=== PATIENT | male | born 1945 | race Caucasian/White ===

== ENCOUNTER 2016-09-20 08:13 | Outpatient (CLI) | payer MEDICARE, OTHER ==
[~2016-09-20] VITALS: Ht 188 cm; Wt 97.7 kg
--- NOTE | ~2016-09-20 | HEMODYNAMI ---
PATIENT:ROD YEBOAH MEDICAL RECORD: [id number] : 43 LOCATION:[facility] ADMISSION DATE: 09/20/16 Generatedon:09/20/201613:58 Patient name: ROD YEBOAH Patient #: [id number] SSN: : 1945 Date of study: 09/20/2016 Page: Of Hemodynamic Procedure Report Patient Data Patient Demographics Procedure consent was obtained First Name: ROD Gender: Male Last Name: EDILIA : 1945 Patient #: [id number] Age: 71 year(s) Race: Unknown Additional ID: [id number] Contact details Address: [address] [place] [address] State: [place] City: [place] Zip code: [address] Past Medical History Allergies: No known allergies Admission Admission Data Admission Date: 09/20/2016 Admission Time: 8:13 Lab Results Lab Result Date: 09/17/2016 Lab Result Time: 0:00 Biochemistry Name Units Result Min Max Creatinine mg/dl 1.1 --(--*-)-- 0.6 1.3 Creatinine l 28 --(*---)-- 21 215 Kinase CBC Name Units Result Min Max Hemoglobin g/dl 14.4 --(*---)-- 13.5 17.5 Procedure Procedure Types Cath Procedure PCI Procedure Coronary Stent Initial Miscellaneous Procedures Moderate Sedation up to 15 minutes Procedure Description Procedure Date Procedure Date: 09/20/2016 Procedure Start Time: 13:47 Procedure End Time: 13:58 Procedure Staff Name Function Ephraim Hill MD Performing Physician Hussain Castellano RT Scrub Lesly Aguilar RN Nurse Gaurang Esposito RT Monitor Procedure Data Cath Procedure Fluoroscopy Diagnostic fluoroscopy Total fluoroscopy Time: 1.6 time: 1.6 min min Diagnostic fluoroscopy Total fluoroscopy dose: dose: 131.06 mGy 131.06 mGy Contrast Material Contrast Material Type Amount (ml) Isovue 300 60 Entry Location Entry Primary Successful Side Size Upsize Upsize Entry Closure Succes sful Closure Location (Fr) 1 (Fr) 2 (Fr) Remarks Device Remarks Femoral Right 7 Fr Exoseal artery Short Estimated blood loss: 10 ml Procedure Complications No complications Procedure Medications Medication Administration Route Dosage Oxygen NC 2 l/min Heparin Flush Bag added to field 2 bags (1000units/500ml NS) Lidocaine 2% added to field 20 Versed I.V. 1 mg Fentanyl I.V. 50 mcg Versed I.V. 1 mg Fentanyl I.V. 50 mcg Versed I.V. 1 mg Fentanyl I.V. 50 mcg Heparin Bolus I.V. 4000 units Hemodynamics Rest HGB: 14.4 (g/dl) Heart Rate: 79 (bpm) Snapshots Pre Cath Intra NCS Post Cath Vital Signs Time Heart Resp SPO2 NIBP (mmHg) Rhythm Pain Sedation Rate (ipm) (%) Status Level (bpm) 13:13:26 78 15 96 115/73(95) NSR 0 (11) 10(A) , No pain 13:17:36 78 23 98 114/77(87) NSR 0 (11) 10(A) , No pain 13:21:50 67 19 99 104/66(84) NSR 0 (11) 10(A) , No pain 13:25:58 73 19 95 104/72(83) NSR 0 (11) 10(A) , No pain 13:30:06 68 17 98 98/64(82) NSR 0 (11) 10(A) , No pain 13:34:16 69 16 98 97/61(79) NSR 0 (11) 10(A) , No pain 13:38:24 76 14 97 104/66(98) NSR 0 (11) 10(A) , No pain 13:42:29 86 17 98 114/77(107) NSR 0 (11) 10(A) , No pain 13:46:39 81 16 98 108/76(103) NSR 0 (11) 9(A) , No pain 13:50:49 84 16 97 120/75(101) NSR 0 (11) 9(A) , No pain 13:55:01 85 13 97 104/64(84) NSR 0 (11) 9(A) , No pain Medications Time Medication Route Dose Verified Delivered Reason Notes Effectiveness by by 13:17:57 Oxygen NC 2 Ephraim Grace Per physician l/min Liz Aguilar RN 13:18:05 Heparin Flush added 2 Ephraim Ye used for Bag to bags Liz Hill MD procedure (1000units/500ml field NS) 13:18:15 Lidocaine 2% added 20ml Ephraim Ye used for to vial Liz Hill MD procedure field 13:38:16 Versed I.V. 1 mg Ephraim Lesly for sedation Liz Aguilar RN 13:38:25 Fentanyl I.V. 50 Ephraim Lesly for sedation mcg Liz Aguilar RN 13:40:13 Versed I.V. 1 mg Ephraim Lesly for sedation Liz Aguilar RN 13:40:16 Fentanyl I.V. 50 Ephraim Lesly for sedation mcg Liz Aguilar RN 13:43:44 Versed I.V. 1 mg Ephraim Lesly for sedation Liz Aguilar RN 13:43:47 Fentanyl I.V. 50 Ephraim Lesly for sedation mcg Liz Aguilar RN 13:48:17 Heparin Bolus I.V. 4000 Ephraim Lesly for dose units Liz Aguilar RN anticoagulation verified with dr hill Procedure Log Time Note 12:45:08 Hussain Nona RT(R) sent for patient. Start room use. 12:48:16 ACC Patient presents with Stable Angina CCS Anginal Class 2--Slight limitation of ordinary activity. 12:48:18 Diagnostic Cath status Elective 12:51:14 Time tracking: Regular hours 12:51:18 Plan of Care:Hemodynamics will remain stable., Cardiac rhythm will remain stable., Comfort level will be maintained., Respiratory function will remain adequate., Patient/ family verbilizes understanding of procedure., Procedure tolerated without complication., Recovers from procedure without complications.. 13:07:52 Patient received from Pre/Post Procedure Room to CCL 3 Alert and oriented. Tansferred to table in Supine position. 13:07:53 Warm blankets applied, and jose hugger turned on for patient comfort. 13:07:54 Correct patient and procedure confirmed by team. 13:07:55 Signed procedure consent form obtained from patient. 13:07:55 ECG and BP/O2 sat monitors applied to patient. 13:12:22 Vital chart was started 13:17:52 Baseline sample Acquired. 13:17:57 Oxygen 2 l/min NC was administered by Lesly Aguilar RN; Per physician; 13:17:57 Rhythm: sinus rhythm 13:17:58 Full Disclosure recording started 13:18:05 Heparin Flush Bag (1000units/500ml NS) 2 bags added to field was administered by Ephraim Hill MD; used for procedure; 13:18:15 Lidocaine 2% 20ml vial added to field was administered by Ephraim Hill MD; used for procedure; 13:20:02 Is patient on blood thinner?Yes 13:20:04 ACC The patient was administered the following blood thiners within the last 24 hours: ACCPlavix 13:20:05 Patient diabetic? No. 13:20:07 Previous problem with sedation/anesthesia? No ? 13:20:08 Snore? Yes 13:20:09 Sleep apnea? No 13:20:10 Deviated septum? No 13:20:11 Opens mouth fully? Yes 13:20:12 Sticks out tongue? Yes 13:20:13 Airway obstruction? No ? 13:20:17 Dentures? Yes IN 13:23:04 H&P Date Dictated: 09/20/2016 New H&P dictated by physician.. 13:23:05 Pre-procedure instructions explained to patient. 13:23:06 Pre-op teaching completed and patient verbalized understanding. 13:23:08 Family in waiting room. 13:23:10 Patient NPO since Midnight. 13:23:16 Pre procedure: right dorsailis pedis pulse 1+ Palpable, but thready & weak; easily obliterated 13:23:19 Patient pain scale 0/10 ?. 13:23:26 IV patent on arrival in left forearm with 0.9% NaCl at [facility]. 13:23:28 Lab results completed and on chart. 13:23:32 Right groin area was prepped with chlora-prep and draped in sterile fashion 13:23:33 Alarms reviewed by R. N. 13:23:33 Sharps counted by scrub and verified by R.N. 13:23:39 Use device set Femoral PCI 13:23:40 Tegaderm 4 x 4 opened to sterile field. 13:23:43 Acist Manifold opened to sterile field. 13:23:44 Acist Syringe opened to sterile field. 13:23:44 Acist Hand Control opened to sterile field. 13:23:45 Bag Decanter opened to sterile field. 13:23:45 Medline Cath Pack opened to sterile field. 13:23:46 St Sean 260cm J .035 wire opened to sterile field. 13:23:47 Merit BasixCompak Inflation Kit opened to sterile field. 13:24:04 Terumo 7Fr [place] Sheath opened to sterile field. 13:24:04 [place] Sci Choice PT Extra Support J 300cm .014 gu opened to sterile field. 13:24:05 Medtronic Launcher 7Fr AR 2.0 guide catheter opened to sterile field. 13:33:29 Zero performed for pressure channel P1 13:33:31 Zero performed for pressure channel P1 13:33:34 Zero performed for pressure channel P1 13:33:36 Zero performed for pressure channel P1 13:34:36 Zero performed for pressure channel P1 13:34:38 Zero performed for pressure channel P1 13:35:56 Zero performed for pressure channel P1 13:37:44 --------ALL STOP TIME OUT------ 13:37:45 Final Timeout: patient, procedure, and site verified with staff and physician. All members of the team are in agreement. 13:37:47 Right groin site verified by team. 13:37:49 Physical assessment completed. ASA score P 2 - A patient with mild systemic disease as per Ephraim Hill MD. 13:37:52 Sedation plan: IV Moderate Sedation Versed, Fentanyl 13:38:16 Versed 1 mg I.V. was administered by Lesly Aguilar RN; for sedation; 13:38:25 Fentanyl 50 mcg I.V. was administered by Lesly Aguilar RN; for sedation; 13:40:13 Versed 1 mg I.V. was administered by Lesly Aguilar RN; for sedation; 13:40:16 Fentanyl 50 mcg I.V. was administered by Lesly Aguilar RN; for sedation; 13:43:44 Versed 1 mg I.V. was administered by Lesly Aguilar RN; for sedation; 13:43:47 Fentanyl 50 mcg I.V. was administered by Lesly Aguilar RN; for sedation; 13:47:21 Procedure started. 13:47:25 Local anesthetic to right femoral artery with Lidocaine 2% by Ephraim Hill MD.INITIAL ACCESS ONLY 13:48:02 A 7 Fr Short sheath was inserted into the Right Femoral artery 13:48:17 Heparin Bolus 4000 units I.V. was administered by Lesly Aguilar RN; for anticoagulation; dose verified with dr hill 13:48:47 6 Fr AR 2 guide catheter was inserted over the wire 13:49:10 Whisper wire advanced. 13:51:02 Wire advanced across lesion. 13:51:39 Inflation Number: 1 A Medtronic Resolute 3.5 X 12 stent was prepped and advanced across the Mid RCA. The stent was deployed at 11 MANOLO for 0:10 (min:sec). 13:51:49 Stent catheter was removed intact over wire. 13:51:49 Wire removed. 13:51:50 Guide catheter removed. 13:52:00 Sheath removed intact; hemostasis achieved with Exoseal to the Right Femoral artery. 13:52:06 Procedure ended.(Physican Out) 13:52:19 Cordis 7Fr Exoseal opened to sterile field. 13:52:26 Fluoroscopy time 01.60 minutes. 13:52:30 Fluoroscopy dose: 131.06 mGy 13:52:30 Flurop Dose total: 131.06 13:52:33 Contrast amount:Isovue 300 60ml. 13:52:34 Sharps counted by scrub and verified by R.N. 13:54:13 Insertion/operative site no bleeding no hematoma. 13:54:16 Post-op/insertion site Right Femoral artery dressed using a 4 x 4 and Tegaderm. 13:54:17 Post Procedure Pulses reassessed and unchanged 13:54:19 Post-procedure physical assessment completed. ASA score P 2 - A patient with mild systemic disease as per Ephraim Hill MD. 13:54:22 Post procedure rhythm: unchanged. 13:54:24 Estimated blood loss: 10 ml 13:54:26 Post procedure instruction explained to patient.Patient verbalizes understanding. 13:54:26 Patient needs reinforcement of post procedure teaching. 13:54:37 Procedure Complication : No complications 13:54:55 Procedure and supply charges have been captured, reviewed, submitted and are correct. 13:58:15 Vital chart was stopped 13:58:15 See physician's report for complete and final results. 13:58:17 Report given to Pre/Post Procedure Room. 13:58:20 Patient transfered to Pre/Post Procedure Room with Bed. 13:58:22 Procedure ended. 13:58:22 Full Disclosure recording stopped 13:58:25 End room use (Document Last) Intervention Summary Intervention Notes Time ActionType Lesion and Equipment Action# Pressure Duration Attributes Used 13:51:39 Place stent Mid RCA Medtronic 1 11 00:10 Resolute 3.5 X 12 stent Device Usage Item Name Manufacture Quantity Catalog Number Hospital Part Current [facility] al Lot# / Charge Number Stock Stock Serial# Code Tegaderm 4 3M 1 [id number] 513462 212715 802594 5 x 4 Acist Acist 1 44230 532976 028140 157539 5 Manifold Medical Systems Inc Acist Acist 1 06439 779540 673994 589531 20 Syringe Medical Systems Inc Acist Hand Acist 1 41844 608738 621153 573665 5 Control Medical Systems Inc Bag Microtek 1 2002S 794347 89929 891803 5 SIMI Inc. Medline Cardinal 1 [id number] 471928 41772 197409 [address] [facility] [address] [facility] St Sean 1 687906 358568 463172 581743 30 260cm J .035 wire Merit Merit 1 [id number] 692463 569930 474111 15 BasixCompak Medical Inflation Kit Terumo 7Fr Terumo 1 [id number] 881064 907116 792984 5 [place] Sheath [place] Sci [place] 1 [id number] 291435 250312 991650 5 Choice PT Scientific Extra Support J 300cm .014 gu Medtronic Medtronic 1 [id number] 568013 152024 529169 0 Launcher 7Fr AR 2.0 guide catheter Medtronic Medtronic 1 [id number] 091415 380608 8 [id number] Resolute 3.5 X 12 stent Cordis 7Fr Cardinal 1 EX700 063197 035742 842297 5 Exoseal [facility] Signature Audit [place] Stage Time Signature Unsigned Intra-Procedure 09/20/2016 Gaurang Esposito 1:58:49 PM RT(R) Signatures Monitor : Gaurang Esposito RT Signature : Date : Time : [address] [address] [place] [address]
[~2016-09-20 08:13] MED LIST: LIPITOR10 MG PO; LOTREL 5/10 MG1 CAP PO; OMEPRAZOLE20 M1 PO; PLAVIX75 MG PO; TESSALON PERLE100 MG PO; ZITHROMAX250 MG PO
[2016-09-20 08:42] VITALS: BP 112/68; Ht 188 cm; Wt 97.7 kg
[2016-09-20 08:52] LABS: BASOPHILS 0.2 % (0-2); EOSINOPHILS 2.6 % (0-7); HEMATOCRIT 41.9 % (42.0-54.0); HEMOGLOBIN 14.4 g/dL (13.5-17.5); IMMATURE GRANULOCYTES 0.4 % (0-5); LYMPHOCYTES 22.9 % (15-50); MCH 30.3 pg (26.0-34.0); MCHC 34.4 g/dL (31.0-37.0); MCV 88.2 fL (80.0-100.0); MEAN PLATELET VOLUME 10.6 fL (7.4-10.4); MONOCYTES 6.9 % (2-11); PLATELET COUNT 230 10x3/uL (130-400); RBC 4.75 10x6/uL (4.20-6.10); RDW 13.7 % (11.5-14.5); WBC 9.1 10x3/uL (4.8-10.8)
[2016-09-20 09:06] LABS: CALC OSMOLALITY 278 mosm/kg (275-300); CALCIUM 8.7 mg/dL (8.5-10.1); CARBON DIOXIDE 26.4 mmol/L (21.0-32.0); CHLORIDE - SERUM 104 mmol/L (98-107); GLUCOSE 161 mg/dL (74-106); POTASSIUM - SERUM 4.3 mmol/L (3.5-5.1); SODIUM 139 mmol/L (136-145); UREA NITROGEN 8 mg/dL (7-18); eGFR NON AFRICAN AMERICAN 78 mL/min (90-120)
--- NOTE | 2016-09-20 14:57 | NUR ---
1430-RIGHT GROIN CDI, NO BLEEDING OR HEMATOMA NOTED, SOFT TO TOUCH, RESTING
--- NOTE | 2016-09-20 15:01 | NUR ---
1500-NO CHANGES NOTED, RESTING, GROIN CDI
--- NOTE | 2016-09-22 08:58 | HP ---
PATIENT: ROD RAINES MEDICAL RECORD: [id number] ACCOUNT: [id number] LOCATION:[facility] : 43 ADMISSION DATE: 09/20/16 HISTORY AND PHYSICAL EXAMINATION DIAGNOSES: 1. Angina. 2. Coronary artery disease. 3. Recent percutaneous transluminal coronary angioplasty stent of left anterior descending with significant disease of right coronary artery. 4. Hypertension. HISTORY OF PRESENT ILLNESS: Mr. Raines presents with anginal symptomatology, found to have 2-vessel disease of the LAD and RCA, underwent successful PTCA stent of the LAD. He is now brought back for PTCA stent of the RCA. PHYSICAL EXAMINATION: GENERAL APPEARANCE: Well-nourished, well-developed, appears stated age. Level of distress, comfortable. PSYCHIATRIC: Mental status, alert, normal affect. Orientation, oriented to time, place and person. EYES: Lids and conjunctiva, noninjected. No discharge, no pallor. ENT: Lips, teeth, gums, normal dentition. Oropharynx, no cyanosis, no pallor. NECK: Carotid arteries, bilateral normal upstroke, no bruits, no thrills. JUGULAR VEINS: No jugular venous pressure or distention. CERVICAL LYMPH NODES: Nontender, nonenlarged. THYROID: Not enlarged. Nontender. No nodules. LUNGS: Respiratory effort, unlabored. CHEST: Normal curvature. No thoracic deformity. No chest wall tenderness. Percussion, resonant. Auscultation, clear. No wheezes, no rales, no rhonchi. CARDIOVASCULAR: Precordial exam, nondisplaced. No heaves or pericardial thrills. Rate and rhythm, regular. Heart sounds, normal S1, normal S2. No S3, no gallop, no rub. Systolic murmur, not heard. Diastolic murmur, not heard. EXTREMITIES: No cyanosis, no edema. Peripheral pulses, full and equal in all extremities, except as noted. No bruits appreciated. ABDOMEN: Soft, nondistended. Normal aorta. No bruit. Nontender. No masses. Liver, nontender, no hepatomegaly. Spleen, nontender, no splenomegaly. MUSCULOSKELETAL: No joint tenderness. No joint swelling. No erythema. NEUROLOGICAL: Normal gait, normal strength, normal tone. SKIN: Warm and dry. REVIEW OF SYSTEMS: The patient reports easy bruising but reports no swollen glands. The patient reports no fever, no night sweats, no significant weight gain, no significant weight loss. No significant exercise tolerance. The patient reports no dry eyes, no irritation, no vision change. Patient reports no difficulty hearing and no ear pain. Patient reports no frequent nose bleeds or nose and sinus problems. Patient reports on arm pain on exertion. No shortness of breath while lying down. No history of heart murmur. Patient reports no cough, no wheezing or coughing up blood. Patient reports no abdominal pain, no vomiting. Normal appetite. No diarrhea and not vomiting blood. No nausea and no constipation. Patient reports no incontinence. No difficulty urinating. No hematuria. No increased frequency. Patient reports no muscle aches. No weakness, no arthralgias, no back pain. No swelling of the extremities. Patient reports no abnormal mole, no jaundice, no rashes. Reports HISTORY AND PHYSICAL [id number] RAINES,CALVIN no loss of consciousness. No weakness and no numbness. No seizures, dizziness, or headaches. The patient reports no depression, no sleep disturbance, feeling safe in a relationship and no alcohol abuse. Patient reports on fatigue. Reports no runny nose or sinus pressure. No itching, no hives, and no frequent sneezing. OVERALL IMPRESSION: Anginal symptomatology with significant disease of the right coronary artery. We will proceed with percutaneous transluminal coronary angioplasty stent of the right coronary artery. TRANSINT:[id number] Voice Confirmation ID: [id number] DOCUMENT ID: [id number] NU ARRIAZA MD at 0858 CC: [id number] DICTATION DATE: 09/20/16939 SENIOR BIOSTATISTICIAN: 09/20/16 1145 DEP CLI 09/20/16 [facility] [address] [id number]
--- NOTE | 2016-09-22 08:58 | HP ---
PATIENT: ROD RAINES MEDICAL RECORD: [id number] ACCOUNT: [id number] LOCATION:[facility] : 43 ADMISSION DATE: 09/20/16 HISTORY AND PHYSICAL EXAMINATION DATE OF SERVICE: 09/20/2016 DIAGNOSES: 1. Angina. 2. Coronary artery disease. 3. Recent percutaneous transluminal coronary angioplasty stent of the left anterior descending with concomitant disease of the right coronary artery. HISTORY OF PRESENT ILLNESS: Mr. Raines presented last week with unstable angina, found to have significant disease of the LAD and RCA, underwent successful PTCA stent of the LAD, now brought back for PTCA stent of the RCA. PHYSICAL EXAMINATION: GENERAL APPEARANCE: Well-nourished, well-developed, appears stated age. Level of distress, comfortable. PSYCHIATRIC: Mental status, alert, normal affect. Orientation, oriented to time, place and person. EYES: Lids and conjunctiva, noninjected. No discharge, no pallor. ENT: Lips, teeth, gums, normal dentition. Oropharynx, no cyanosis, no pallor. NECK: Carotid arteries, bilateral normal upstroke, no bruits, no thrills. JUGULAR VEINS: No jugular venous pressure or distention. CERVICAL LYMPH NODES: Nontender, nonenlarged. THYROID: Not enlarged. Nontender. No nodules. LUNGS: Respiratory effort, unlabored. CHEST: Normal curvature. No thoracic deformity. No chest wall tenderness. Percussion, resonant. Auscultation, clear. No wheezes, no rales, no rhonchi. CARDIOVASCULAR: Precordial exam, nondisplaced. No heaves or pericardial thrills. Rate and rhythm, regular. Heart sounds, normal S1, normal S2. No S3, no gallop, no rub. Systolic murmur, not heard. Diastolic murmur, not heard. EXTREMITIES: No cyanosis, no edema. Peripheral pulses, full and equal in all extremities, except as noted. No bruits appreciated. ABDOMEN: Soft, nondistended. Normal aorta. No bruit. Nontender. No masses. Liver, nontender, no hepatomegaly. Spleen, nontender, no splenomegaly. MUSCULOSKELETAL: No joint tenderness. No joint swelling. No erythema. NEUROLOGICAL: Normal gait, normal strength, normal tone. SKIN: Warm and dry. REVIEW OF SYSTEMS: The patient reports easy bruising but reports no swollen glands. The patient reports no fever, no night sweats, no significant weight gain, no significant weight loss. No significant exercise tolerance. The patient reports no dry eyes, no irritation, no vision change. Patient reports no difficulty hearing and no ear pain. Patient reports no frequent nose bleeds or nose and sinus problems. Patient reports on arm pain on exertion. No shortness of breath while lying down. No history of heart murmur. Patient reports no cough, no wheezing or coughing up blood. Patient reports no abdominal pain, no vomiting. Normal appetite. No diarrhea and not vomiting blood. No nausea and no constipation. Patient reports no incontinence. No difficulty urinating. No hematuria. No increased frequency. Patient reports no muscle aches. No weakness, no arthralgias, no back pain. No swelling of the extremities. Patient reports no abnormal mole, no jaundice, no rashes. Reports HISTORY AND PHYSICAL [id number] EDILIAROD no loss of consciousness. No weakness and no numbness. No seizures, dizziness, or headaches. The patient reports no depression, no sleep disturbance, feeling safe in a relationship and no alcohol abuse. Patient reports on fatigue. Reports no runny nose or sinus pressure. No itching, no hives, and no frequent sneezing. OVERALL IMPRESSION: Anginal symptomatology with significant disease of the right coronary artery. We will proceed with transcatheter revascularization of the right coronary artery. TRANSINT:[id number] Voice Confirmation ID: [id number] DOCUMENT ID: [id number] NU ARRIAZA MD at 0858 CC: [id number] DICTATION DATE: 09/21/16 0851 MANAGER RADIATION: 09/21/16 0948 DEP CLI 09/20/16 [facility] [address] [id number]
--- NOTE | 2016-09-22 08:58 | OP ---
PATIENT NAME: ROD YEBOAH MEDICAL RECORD: [id number] :43 LOCATION:[facility] ADMISSION DATE: SURGEON: NU ARRIAZA MD DATE OF OPERATION: 09/20/2016 PROCEDURES: 1. PTCA stent, RCA. 2. Selective coronary angiography. INDICATIONS: Angina and coronary artery disease. PROCEDURE IN DETAIL: After informed consent was obtained and after detailed explanation of risks, benefits as well as alternative therapies, the patient elected to proceed with angiogram and angioplasty. The right femoral area was prepped and draped in normal sterile fashion. The right femoral artery was cannulated via modified Seldinger technique with placement of 7-Hebrew sheath. All catheters exchanged through this sheath. FINDINGS: The right coronary is very angulated and has a 70%-80% stenosis in the mid vessel. This was addressed with a 3.5 x 12 mm Resolute stent. Result was 0% residual stenosis. OVERALL IMPRESSION: Successful percutaneous transluminal coronary angioplasty stent of the right coronary artery going from 70%-80% initial stenosis to 0% residual. TRANSINT:[id number] Voice Confirmation ID: [id number] DOCUMENT ID: [id number] NU ARRIAZA MD at 0858 CC: [id number] DICTATION DATE: 09/20/16 1358 EXPRESSIVE THERAPIST: 09/20/164 DEP CLI 09/20/16 [id number] [place] [address]
== END 2016-09-20 18:00 | disposition home or self-care (01) ==
LOC: D.CATH 08:13
PROVIDERS: Internal Medicine Interventional Cardiology
DX: I25.119 Atherosclerotic heart disease of native coronary artery with unspecified angina pectoris (principal); Z95.5 Presence of coronary angioplasty implant and graft; I10 Essential (primary) hypertension; Z01.812 Encounter for preprocedural laboratory examination

== ENCOUNTER 2016-09-30 14:47 | Inpatient (IN) | payer MEDICARE, OTHER ==
[~2016-09-30] VITALS: Ht 188 cm; Wt 98.5 kg
--- NOTE | ~2016-09-30 | CN ---
PATIENT NAME:ROD RAINES MEDICAL RECORD: [id number] : 43 LOCATION:D. D.2139 ADMIT DATE: 09/30/16 ACCOUNT: [id number] CONSULTING PHYSICIAN: SILVIA BRITO MD REFERRING PHYSICIAN: JACEK HERNANDEZ MD DATE OF CONSULTATION: 10/01/2016 CONSULT REQUESTING PHYSICIAN: Jacek Hernandez MD. REASON FOR CONSULTATION: Pneumonia, left lower lobe; COPD exacerbation. HISTORY OF PRESENT ILLNESS: Mr. Raines is a 71-year-old gentleman who has remote history of smoking. According to the patient, he is sick for the last few weeks. He was coughing and wheezing. He was tested positive for the whooping cough. He was treated with Zithromax. Then, for shortness of breath, he saw Dr. Hill and he did a cardiac catheterization and 2-vessel was stented. For the last 2 days, the patient had worsening shortness of breath with mild exertion. When he coughs, he hears himself wheezing. He even has shortness of breath with normal conversation. REVIEW OF SYSTEMS: Mainly in the history of present illness. PAST MEDICAL HISTORY: 1. Coronary artery disease. 2. Hypertension. 3. History of pneumonia in the past. 4. Vertigo. PAST SURGICAL HISTORY: 1. He has left knee replacement. 2. He has cardiac catheterization and stent placement times [address] Hill. ALLERGIES: No known drug allergies. PRESENT MEDICATIONS: [facility]. He is not on any inhaled medication, but he got a few courses of antibiotics when he was sick for the last 2-3 weeks. PERSONAL AND SOCIAL HISTORY: The patient is . He is an ex-smoker, he quit years ago. He is a nondrinker. FAMILY HISTORY: Significant for cardiovascular disease. PHYSICAL EXAMINATION: GENERAL: Now, the patient is lying comfortably. He is not in acute distress. VITAL SIGNS: The blood pressure is 132/89, pulse is 83, respiration is 16, temperature 97.9, SpO2 is 97% on 2 L nasal cannula. HEENT: Conjunctivae are pink, sclerae nonicteric. NECK: Supple. No JVD. CHEST: The chest excursion is minimal on both sides. There is a crackle on the left side. No wheezing. HEART: Rhythm regular, normal sound, no murmur. ABDOMEN: Soft, bowel sounds present. No hepatosplenomegaly. RECTAL: Deferred. CENTRAL NERVOUS SYSTEM: The patient is awake and alert. There is no obvious CONSULT REPORT [id number] ROD RAINES cranial nerve abnormality. The gait was not tested. CHEST RADIOGRAPH: There is a left lower lobe infiltrate. There is a small left-sided pleural effusion. LABORATORY DATA: CBC: The WBC is 4.9, hemoglobin 13.2, hematocrit 38.6. The platelet count is 203. Chemistry: Sodium 138, potassium 3.9, BUN is 10, creatinine is 1. ProBNP 173. Albumin is 3.1. IMPRESSION: 1. Acute hypoxic respiratory failure secondary to pneumonia, left lower lobe. 2. Left parapneumonic pleural effusion. 3. Acute exacerbation of chronic obstructive pulmonary disease. 4. Dyspnea. 5. Whooping cough. 6. Coronary artery disease. 7. Gastroesophageal reflux disease. RECOMMENDATION: 1. Continue Rocephin. Discontinue Zithromax. Start him on Levaquin. 2. Start on methylprednisolone IV. Start on albuterol/ipratropium nebulizer. Start Brovana and budesonide nebulizer. 3. Mucinex DM 2 tablets b.i.d. 4. GERD precaution. Continue omeprazole. Check alpha-1 level. Follow up labs and chest radiograph in the morning. Dr. Hernandez, once again, thank you for involving me in the care of Mr. Raines. TRANSINT:[id number] Voice Confirmation ID: [id number] DOCUMENT ID: [id number] SILVIA BRITO MD CC: JACEK HERNANDEZ MD [id number] DICTATION DATE: 10/01/16 1432 CORONER FORENSIC TECHNICIAN: 10/01/[id number] ADM IN [facility] [address] [id number]
--- NOTE | ~2016-09-30 | DS ---
PATIENT:ROD YEBOAH :43 MEDICAL RECORD: [id number] DISCHARGE SUMMARY ADMISSION DATE: 09/30/16 DISCHARGE DATE: 10/05/16 DATE OF ADMISSION: 09/30/2016. DATE OF DISCHARGE: 10/05/2016. ADMITTING DIAGNOSES: Pneumonia, dyspnea, dyspnea on exertion, coronary artery disease, hypertension, GERD. HOSPITAL COURSE: This is a gentleman of Dr. Quintana's admitted with diagnoses as outlined above. Details are well-outlined in the history of the present illness, H&P. All events, lab procedures, diagnostic testing are well documented in the records. The patient was admitted, appropriate home medicines continued, started on IV antibiotics, PPI scuds for DVT prophylaxis. CONSULTANTS: Dr. Mckenna with pulmonary. His recommendations were followed. Speech therapy followed as well. He had some elevation of blood sugars during the stay. Hemoglobin A1c pending at this time. He was felt to have a left lower lobe community-acquired pneumonia. It did improve on chest x-ray. He had a left parapneumonic pleural effusion and acute exacerbation of COPD, possible pertussis treated as an outpatient prior to this admission. His antibiotic coverage included Rocephin and Levaquin. He was on IV steroids. These were tapered down. MEDICATIONS: Included albuterol, ipratropium, Brovana, Bunesonide nebulizers. He is on antitussive medicine with Mucinex, omeprazole for his PPI for 1 level was ordered per pulmonary and pain clinic at the time of this discharge. He is ambulating the entire length of the nurses' station, O2 sat 95% on room air. He is feeling much better. He is stable for dismissal home. PHYSICAL EXAMINATION: VITAL SIGNS: The patient afebrile, pulse 95, respirations 18, blood pressure 130/76, O2 sat 95% on room air. LABORATORY DATA: White count 8, hemoglobin 12.5, platelets 223. Sodium 134 and it has been normal here, potassium 4.6, chloride 99, CO2 of 27, BUN 16, serum creatinine 0.9, calcium 8.4, phosphorus 3, magnesium 2.1. Chest x-ray today showing no acute cardiopulmonary disease and interval improvement in the left basilar airspace opacity. He is dismissed home. Please refer to med rec. He will go home to complete a total of 7 days of the Levaquin. He has had 6 days of Rocephin. DIAGNOSES: Community-acquired pneumonia, left lower lobe improved, left parapneumonic pleural effusion, acute exacerbation of chronic obstructive pulmonary disease, acute hypoxic respiratory failure, probable pertussis treated as an outpatient prior to this admission, coronary artery disease, history of stenting, GERD, insomnia, debility, elevated glucose. He was on steroids. Hemoglobin A1c pending at this time. Greater than 30 minutes spent on this discharge. We will have him follow up with [facility], Dr. Mckenna and Dr. Quintana. TRANSINT:[id number] Voice Confirmation ID: [id number] DOCUMENT ID: [id number] DISCHARGE SUMMARY REPORT [id number] ROD YEBOAH Dictated By: LOUISE GARCIA RN I have interviewed/examined the above patient and agree with these documented findings. CLIFTON RIVAS MD CC: [id number] DICTATION DATE: 10/05/16 1310 CLOTHES DESIGNER: 10/06/16 0323 DIS IN 10/05/16 [facility] [address] [place] [address]
[2016-09-30 15:40] LABS: BASOPHILS 0.3 % (0-2); EOSINOPHILS 2.9 % (0-7); HEMATOCRIT 38.6 % (42.0-54.0); HEMOGLOBIN 13.2 g/dL (13.5-17.5); MCH 30.3 pg (26.0-34.0); MCHC 34.2 g/dL (31.0-37.0); MCV 88.7 fL (80.0-100.0); MEAN PLATELET VOLUME 10.6 fL (7.4-10.4); MONOCYTES 8.4 % (2-11); NEUTROPHILS 57.4 % (40-80); PLATELET COUNT 203 10x3/uL (130-400); RBC 4.35 10x6/uL (4.20-6.10); RDW 13.4 % (11.5-14.5); WBC 5.9 10x3/uL (4.8-10.8)
[2016-09-30 15:49] LABS: ALBUMIN 3.1 g/dL (3.4-5.0); ALKALINE PHOSPHATASE 62 U/L (46-116); ALT (SGPT) 21 U/L (10-68); BILIRUBIN - TOTAL 0.41 mg/dL (0.2-1.3); CALC OSMOLALITY 276 mosm/kg (275-300); CALCIUM 8.8 mg/dL (8.5-10.1); CARBON DIOXIDE 26.3 mmol/L (21.0-32.0); CHLORIDE - SERUM 103 mmol/L (98-107); GLUCOSE 129 mg/dL (74-106); POTASSIUM - SERUM 3.9 mmol/L (3.5-5.1); PROTEIN - SERUM 7.2 g/dL (6.4-8.2); SODIUM 138 mmol/L (136-145); UREA NITROGEN 10 mg/dL (7-18); eGFR NON AFRICAN AMERICAN 78 mL/min (90-120)
[2016-09-30 15:57] LABS: CREATINE KINASE 45 UL (21-232); PRO BNP 173 pg/mL (0-125)
[2016-09-30 17:44] VITALS: BP 152/103; BMI 27.6
[2016-09-30 20:32] VITALS: BP 143/83
--- NOTE | 2016-09-30 22:02 | NUR ---
INIITAL ROUNDS COMPLETED AT 191 HRS. PT DNEID ANY DISCOMFORT. ASSESSMENT COMPLETED AT 1947 HRS. VSS. O2 2LNC. ALERT AND ORIENTED. IV TO RFA SL. LUNGS DIMINISHED IN BASES BILAT. O2 2LNC. PT CURRENTLY WATCHING TV. WILL CONTINUE TO MONITOR. SR UP X2, CALL LIGHT WITHIN REACH.
[2016-10-01] VITALS (7 sets, daily range): BP systolic 118–140; BP diastolic 72–89
--- NOTE | 2016-10-01 00:01 | NUR ---
PT RESTING WITH EYES CLOSED. RESP EVEN AND REGULAR. SR UP X2, CALL LIGHT WITHIN REACH.
--- NOTE | 2016-10-01 02:34 | NUR ---
PT RESTING WITH EYES CLOSED. RESP EVEN AND REGULAR. SR UP X2, CALL LIGHT WITHIN REACH.
--- NOTE | 2016-10-01 04:47 | NUR ---
PT RESTING WITH EYES CLOSED. RESP EVEN AND REGULAR. SR UP X2, CALL LIGHT WITHIN REACH.
--- NOTE | 2016-10-01 06:06 | NUR ---
VSS THROUGHOUT NIGHT. PT DENIED ANY DISCOMFORT. NEEDS MET; WILL CONTINUE TO MONITOR.
--- NOTE | 2016-10-01 08:22 | NUR ---
AM ROUNDING DONE WITH PATIENT REPORTING THAT HE FEELS A LITTLE BETTER. ON 2L PER NC, SALINE LOCK SEEN TO RIGHT FA. DENIES ANY NEEDS AT PRESENT TIME. WILL CONTINUE TO MONITOR.
--- NOTE | 2016-10-01 11:57 | NUR ---
BROUGHT SCD'S IN TO PATIENT AND EXPLAINED USE, HE STATES "YOU GUYS HAVE ENOUGH TO DO WITHOUT ME HAVING YOU UNDO THESE EACH TIME". PATIENT IS UP AD LATASHA, REFUSED.
--- NOTE | 2016-10-01 16:52 | NUR ---
PM NOTE - PT SITTING UP IN THE BED EATING DINNER. MEDICATION INFUSING IN RIGHT FA. NO NEEDS AT THIS TIME. WILL CONTINUE TO MONITOR.
--- NOTE | 2016-10-01 21:18 | NUR ---
PT AWAKE, ALERT, ORIENTED, DENIES ANY NEEDS. CONTINUE TO MONITOR CLOSELY. BED LOW, CALL LIGHT IN REACH, SIDE RAILS X 2, HOB 35 DEGREES.
--- NOTE | 2016-10-02 04:54 | NUR ---
PT LYING IN BED ON RIGHT SIDE, EYES CLOSED, RESPIRATIONS EVEN AND UNLABORED. PT IS EASILY ROUSABLE TO VERBAL STIMULI. CONTINUE TO MONITOR CLOSELY. BED LOW, CALL LIGHT IN REACH, SIDE RAILS X 2, HOB FLAT.
[2016-10-02 06:05] VITALS: BP 134/89
[2016-10-02 06:12] LABS: BASOPHILS 0 % (0-2); EOSINOPHILS 0 % (0-7); HEMATOCRIT 37.4 % (42.0-54.0); HEMOGLOBIN 13.1 g/dL (13.5-17.5); IMMATURE GRANULOCYTES 0.1 % (0-5); LYMPHOCYTES 11.9 % (15-50); MCH 30.7 pg (26.0-34.0); MCV 87.6 fL (80.0-100.0); MEAN PLATELET VOLUME 10.2 fL (7.4-10.4); MONOCYTES 0.9 % (2-11); NEUTROPHILS 87.1 % (40-80); PLATELET COUNT 194 10x3/uL (130-400); RBC 4.27 10x6/uL (4.20-6.10); RDW 13.5 % (11.5-14.5)
[2016-10-02 06:26] LABS: WBC 7.5 10x3/uL (4.8-10.8)
[2016-10-02 06:47] LABS: CALCIUM 9.1 mg/dL (8.5-10.1); CARBON DIOXIDE 24.3 mmol/L (21.0-32.0); CHLORIDE - SERUM 102 mmol/L (98-107); CREATININE - SERUM 0.9 mg/dL (0.6-1.3); POTASSIUM - SERUM 4.4 mmol/L (3.5-5.1); SODIUM 136 mmol/L (136-145); eGFR NON AFRICAN AMERICAN 88 mL/min (90-120)
[2016-10-02 06:48] LABS: CALC OSMOLALITY 279 mosm/kg (275-300); GLUCOSE 238 mg/dL (74-106); UREA NITROGEN 13 mg/dL (7-18)
--- NOTE | 2016-10-02 08:05 | NUR ---
AM ROUNDING- RECEIVED REPORT FROM FAMILY MANAGER NURSE SAQIB RAMOS. PT IS CURRENTLY SITTING UP IN BED RECEIVING BREATHING TX. ALERT AND ORIENTED. 0N 02 AT 2L VIA NC. IV SEEN TO RIGHT FOREARM THAT IS CURRENTLY SALINE LOCKED. NO NEED AT CURRENT TIME. WILL CONTINUE TO MONITOR AND CONTINUE WITH PLAN OF CARE.
[2016-10-02 08:28] VITALS: BP 156/101
[2016-10-02 13:09] VITALS: Ht 188 cm; Wt 98.5 kg
[2016-10-02 13:42] VITALS: BP 124/73
[2016-10-02 16:05] VITALS: BP 131/73
--- NOTE | 2016-10-02 19:17 | NUR ---
PT IS CURRENTLY SITTING UP IN BED LAYING ON BACK WITH EYES OPEN RESTING. DENIES ANY NEED AT CURRENT TIME. WILL CONTINUE TO MONITOR.
--- NOTE | 2016-10-02 20:28 | NUR ---
PT AWAKE, ALERT, ORIENTED, DENIES ANY ACUTE NEEDS, STATES HE IS NOT FEELING ANY BETTER. PT IS IN NO ACUTE DISTRESS. CONTINUE TO MONITOR CLOSELY.
[2016-10-02 20:46] VITALS: BP 128/74
[2016-10-02 23:58] VITALS: BP 114/44
[2016-10-03 04:11] VITALS: BP 137/65
--- NOTE | 2016-10-03 04:24 | NUR ---
PT AWAKE, ALERT, ORIENTED, C/O SORE THROAT SINCE YESTERDAY AFTERNOON, IDALIA THIS SHIFT. PT STATES HE WILL ASK HIS TO BRING HIM A COUGH DROP OR THROAT LOZENGE. I ADDED HUMIDIFIED O2 VIA NC FOR PTS COMFORT, HIS MUCOSAL MEMBRANES ARE EXTREMELY DRY. PT DENIES ANY OTHER NEEDS. CONTINUE TO MONITOR CLOSELY. BED LOW, CALL LIGHT IN REACH, SIDE RAILS X 2, HOB 5 DEGREES.
[2016-10-03 05:46] LABS: BASOPHILS 0 % (0-2); EOSINOPHILS 0 % (0-7); HEMATOCRIT 35.9 % (42.0-54.0); HEMOGLOBIN 12.2 g/dL (13.5-17.5); IMMATURE GRANULOCYTES 0.1 % (0-5); MCH 30.3 pg (26.0-34.0); MCV 89.1 fL (80.0-100.0); MEAN PLATELET VOLUME 10.4 fL (7.4-10.4); MONOCYTES 4.1 % (2-11); NEUTROPHILS 85.8 % (40-80); PLATELET COUNT 212 10x3/uL (130-400); RBC 4.03 10x6/uL (4.20-6.10); RDW 13.8 % (11.5-14.5)
[2016-10-03 05:52] LABS: WBC 9.7 10x3/uL (4.8-10.8)
[2016-10-03 06:28] LABS: CALC OSMOLALITY 285 mosm/kg (275-300); CALCIUM 8.9 mg/dL (8.5-10.1); CARBON DIOXIDE 24.4 mmol/L (21.0-32.0); CHLORIDE - SERUM 103 mmol/L (98-107); GLUCOSE 275 mg/dL (74-106); POTASSIUM - SERUM 4.7 mmol/L (3.5-5.1); SODIUM 137 mmol/L (136-145); eGFR NON AFRICAN AMERICAN 78 mL/min (90-120)
[2016-10-03 06:31] LABS: UREA NITROGEN 18 mg/dL (7-18)
--- NOTE | 2016-10-03 07:00 | NUR ---
RECEIVED REPORT. ASSUMED CARE OF PATIENT. ALERT/ORIENTED. SITTING UP IN BED WITH ATTENTION TOWARD TELEVISION. CALL LIGHT WITHIN REACH. DENIES NEEDS AT THIS TIME. NO DISTRESS.
[2016-10-03 09:49] VITALS: BP 145/88
[2016-10-03 13:12] VITALS: BP 120/76
--- NOTE | 2016-10-03 17:42 | NUR ---
SITTING IN BED. NO DISTRESS. CALL LIGHT WITHIN REACH. DENIES NEEDS AT THIS TIME.
--- NOTE | 2016-10-03 19:32 | NUR ---
PT RECEIVED IN BED WITH EYES OPEN WATCHING TV. NO NEEDS OR CONCERNS MADE KNOWN AT THIS TIME. CALL LIGHT IN REACH. WILL CONTINUE TO OBSERVE.
[2016-10-03 20:00] VITALS: BP 134/85
--- NOTE | 2016-10-04 | NUR ---
PT IN BED WITH EYES CLOSED AND CHEST RISING. EASILY AROUSED UPON ENTRY. NO NEEDS MADE KNOWN. CALL LIGHT IN REACH. WILL CONTINUE TO OBSERVE.
[2016-10-04 01:32] VITALS: BP 117/76
--- NOTE | 2016-10-04 01:34 | NUR ---
PT IN BED WITH EYES CLOSED AND CHEST RISING. NO SIGN/SYMPTOMS OF DISTRESS NOTED. CALL LIGHT IN REACH. WILL CONTINUE TO OBSERVE.
--- NOTE | 2016-10-04 03:49 | NUR ---
PT IN BED WITH EYES CLOSED AND CHEST RISING. RESPIRATIONS EVEN AND UNLABORED. NO SIGN/SYMPTOMS OF DISTRESS NOTED. CALL LIGHT IN REACH. WILL CONTINUE TO OBSERVE.
[2016-10-04 04:16] VITALS: BP 142/85
[2016-10-04 05:51] LABS: BASOPHILS 0 % (0-2); EOSINOPHILS 0 % (0-7); HEMATOCRIT 34.3 % (42.0-54.0); HEMOGLOBIN 11.7 g/dL (13.5-17.5); IMMATURE GRANULOCYTES 0.1 % (0-5); LYMPHOCYTES 10.8 % (15-50); MCH 30.4 pg (26.0-34.0); MCHC 34.1 g/dL (31.0-37.0); MCV 89.1 fL (80.0-100.0); MEAN PLATELET VOLUME 10.7 fL (7.4-10.4); MONOCYTES 3.8 % (2-11); NEUTROPHILS 85.3 % (40-80); PLATELET COUNT 224 10x3/uL (130-400); RBC 3.85 10x6/uL (4.20-6.10); WBC 7.9 10x3/uL (4.8-10.8)
[2016-10-04 06:07] LABS: CALC OSMOLALITY 283 mosm/kg (275-300); CALCIUM 8.5 mg/dL (8.5-10.1); CHLORIDE - SERUM 102 mmol/L (98-107); CREATININE - SERUM 0.9 mg/dL (0.6-1.3); GLUCOSE 277 mg/dL (74-106); POTASSIUM - SERUM 4.6 mmol/L (3.5-5.1); SODIUM 136 mmol/L (136-145); UREA NITROGEN 18 mg/dL (7-18); eGFR NON AFRICAN AMERICAN 88 mL/min (90-120)
--- NOTE | 2016-10-04 06:30 | NUR ---
PT IN BED WITH EYES OPEN WATCHING TV. RECEIVED 0600 MEDICATIONS PER MAR WITHOUT DIFFICULTY. NO NEEDS OR CONCERNS MADE KNOWN. CALL LIGHT IN REACH.
--- NOTE | 2016-10-04 08:03 | NUR ---
AM ROUNDING DONW WITH NO COMPLAINTS FROM PATIENT. STATES TO BREATHING BETTER. ON 2L PER NC WITH HUMM, RIGHT FA WITH SALINE LOCK SEEN. ON EP WITH LAB VALUES WNL. WILL CONTINUE TO MONITOR.
[2016-10-04 08:33] VITALS: BP 134/88
--- NOTE | 2016-10-04 10:49 | NUR ---
Patient Name: ROD YEBOAH Admission Status: ER Accout number: [id number] Admission Date: 09-30-2016 : 1945 Admission Diagnosis:ACUTE RESPIRATORY FAILURE WITH HYPOXIA Attending: JENNIFER Current LOS: 4 Anticipated DC Date: 10-05-2016 Planned Disposition: Home Primary Insurance: MEDICARE A & B Discharge Planning Comments: * Is the patient Alert and Oriented? Yes 0 * How many steps to enter\exit or inside your home? 1 0 * PCP DR. CHINO 0 * Pharmacy [facility] MA[facility] ORDER 0 * Preadmission Environment Home with Family 0 * ADLs Independent 0 * Equipment Nebulizer 0 * Other Equipment [facility] - MEDICAL EQUIPMENT PROVIDER 0 * List name and contact numbers for known caregivers / representatives who currently or will assist patient after discharge: LEONARDO YEBOAH, SPOUSE, 0 * Community resources currently utilized None 0 * Please name any agencies selected above. NONE 0 * Additional services required to return to the preadmission environment? No 0 * Can the patient safely return to the preadmission environment? Yes 0 * Has this patient been hospitalized within the prior 30 days at any hospital? No 0 CM MET WITH PT IN ROOM TO DISCUSS DISCHARGE PLANNING AND NEEDS. PT REPORTS LIVING AT HOME INDEPENDENTLY WITH SPOUSE. PT HAS NEBULIZER FROM [facility], [place] AND NO OUTSIDE SERVICES ASSISTING IN THE HOME. CM DISCUSSED AVAILABILITY OF HOME HEALTH, REHAB SERVICES AND MEDICAL EQUIPMENT. PT DENIES DISCHARGE NEEDS, REPORTS HIS SPOUSE WILL PICK HIM UP FOR DISCHARGE HOME. IMPORTANT MESSAGE FROM MEDICARE PROVIDED AND EXPLAINED. Life Consultant: Gavin Oliver
[2016-10-04 12:31] VITALS: BP 151/90
--- NOTE | 2016-10-04 13:52 | NUR ---
RESTING WITH EYES CLOSED, RESP EVEN AND NON LABORED, SNORING. WILL CONTINUE TO MONITOR.
--- NOTE | 2016-10-04 16:34 | NUR ---
1608-ROCEPHRIN STARTED INFUSING TO RIGHT FA, WILL SALINE LOCK PAST INFUSION. DENIES ANY NEEDS AT PRESENT TIME.
[2016-10-04 16:55] VITALS: BP 160/65
[2016-10-04 19:00] VITALS: BP 173/73
--- NOTE | 2016-10-04 19:43 | NUR ---
ASSESSMENT COMPCHRISTIANE, A&O. SITTING UP IN CHAIR AT BED SIDE. RESPERATIONS EVEN AND UNLABORED. IV TO RIGHT FOREARM SL, SITE CLEAN AND DRY. PT ASKING TO TAKE A SHOWER BUT ALSO STATED THAT HE WILL WAIT UNTIL THINGS SLOW A LITTLE BIT SINCE ITS SHIFT CHANGE. FRESH CUP OF ICE WATER GIVEN AT PT REQUEST, NO OTHER NEEDS AT THIS TIME. WILL CONT TO MONITOR.
--- NOTE | 2016-10-04 20:55 | NUR ---
PT UP TO SHOWER, INVESTIGATOR WELFARE AT BED SIDE, LINENS CHANGED.
--- NOTE | 2016-10-04 21:35 | NUR ---
HS MEDS GIVEN WITH FRESH ICE WATER.
--- NOTE | 2016-10-04 21:35 | NUR ---
UP TO SHOWER, LINENS CHANGED.
[2016-10-05 00:20] VITALS: BP 131/81
--- NOTE | 2016-10-05 00:38 | NUR ---
SOLUTIONS DEVELOPER AT BEDSIDE TO OBTAIN VITALS, CALL LIGHT IN REACH. WILL CONTINUE WITH PLAN OF CARE.
[2016-10-05 04:37] VITALS: BP 170/93
--- NOTE | 2016-10-05 06:06 | NUR ---
AWAKE IN BED, FRESH ICE WATER AND CUP OF COFFEE GIVEN AT PT REQUEST.
[2016-10-05 06:52] LABS: BASOPHILS 0 % (0-2); EOSINOPHILS 0.1 % (0-7); HEMATOCRIT 36.6 % (42.0-54.0); HEMOGLOBIN 12.5 g/dL (13.5-17.5); IMMATURE GRANULOCYTES 0.7 % (0-5); LYMPHOCYTES 27.5 % (15-50); MCH 29.8 pg (26.0-34.0); MCHC 34.2 g/dL (31.0-37.0); MCV 87.4 fL (80.0-100.0); MEAN PLATELET VOLUME 10.4 fL (7.4-10.4); MONOCYTES 7.3 % (2-11); NEUTROPHILS 64.4 % (40-80); PLATELET COUNT 223 10x3/uL (130-400); RBC 4.19 10x6/uL (4.20-6.10); RDW 13.6 % (11.5-14.5); WBC 8.2 10x3/uL (4.8-10.8)
[2016-10-05 07:15] LABS: CALC OSMOLALITY 275 mosm/kg (275-300); CALCIUM 8.4 mg/dL (8.5-10.1); CARBON DIOXIDE 27.2 mmol/L (21.0-32.0); CHLORIDE - SERUM 99 mmol/L (98-107); CREATININE - SERUM 0.9 mg/dL (0.6-1.3); MAGNESIUM - SERUM 2.1 mg/dL (1.8-2.4); POTASSIUM - SERUM 4.2 mmol/L (3.5-5.1); SODIUM 134 mmol/L (136-145); UREA NITROGEN 16 mg/dL (7-18); eGFR NON AFRICAN AMERICAN 88 mL/min (90-120)
[2016-10-05 07:17] LABS: GLUCOSE 228 mg/dL (74-106)
--- NOTE | 2016-10-05 07:59 | NUR ---
AM ROUNDING PERFORMMED WITH PATIENT SITTING IN CHAIR ON ROOM AIR. DENIES NEEDS AT PRESENT TIME. ON EP, LAB VALUE ARE WNL. RIGHT FA SEEN WITH SALINE LOCK. WILL COTNINUE TO MONITOR.
[2016-10-05 08:20] VITALS: BP 149/66
[2016-10-05 08:26] VITALS: BP 130/76
--- NOTE | 2016-10-05 08:44 | NUR ---
SP02 RA AT REST UP IN CHAIR>>> 96%; SPO2 RA WITH ACTIVITY >> 96%
[2016-10-05 12:28] VITALS: BP 139/80
--- NOTE | 2016-10-05 12:43 | NUR ---
STILL SITTING IN CHAIR EATING LUNCH, BLAZE NEEDS. WANTING TO BE DISCHARGED.
[2016-10-05] MEDS ORDERED: PREDNISONE10 MG PO (13:01)
[2016-10-05] MEDS ORDERED: LEVAQUIN750 MG PO (13:02)
[2016-10-05 14:07] LABS: HEMOGLOBIN A1C 8.1 % (4.8-6.0)
--- NOTE | 2016-10-05 15:19 | NUR ---
VERBAL AND WRITTEN DISCHARGE INSTRUCTIONS GIVEN TO PATIENT. AWAITING RIDE. SALINE LOCK REMOVED WITH CATH TIP INTACT.
--- NOTE | 2016-10-05 15:40 | NUR ---
DISCHARGED HOME VIA WHEELCHAIR.
== END 2016-10-05 15:40 | disposition home or self-care (01) | DRG 189 ==
LOC: D.ER 14:47 → D.M2 16:20
PROVIDERS: Emergency Medicine; ADMIT Family Medicine Adult Medicine
DX: J96.01 Acute respiratory failure with hypoxia (principal); J18.9 Pneumonia, unspecified organism; J44.1 Chronic obstructive pulmonary disease with (acute) exacerbation; J44.0 Chronic obstructive pulmonary disease with (acute) lower respiratory infection; A37.90 Whooping cough, unspecified species without pneumonia; I10 Essential (primary) hypertension; I25.10 Atherosclerotic heart disease of native coronary artery without angina pectoris; Z87.01 Personal history of pneumonia (recurrent); K21.9 Gastro-esophageal reflux disease without esophagitis; G47.00 Insomnia, unspecified; D64.9 Anemia, unspecified; Z87.891 Personal history of nicotine dependence

== ENCOUNTER 2016-10-16 10:05 | Inpatient (IN) | payer MEDICARE, OTHER ==
[~2016-10-16] VITALS: Ht 188 cm; Wt 95.3 kg
[~2016-10-16 10:05] MED LIST changes: +LEVAQUIN750 MG PO; +PREDNISONE10 MG PO
[2016-10-16 10:46] LABS: BASOPHILS 0.2 % (0-2); EOSINOPHILS 0.4 % (0-7); HEMATOCRIT 42.1 % (42.0-54.0); HEMOGLOBIN 14.7 g/dL (13.5-17.5); IMMATURE GRANULOCYTES 0.4 % (0-5); LYMPHOCYTES 10.9 % (15-50); MCH 30.5 pg (26.0-34.0); MCHC 34.9 g/dL (31.0-37.0); MCV 87.3 fL (80.0-100.0); MEAN PLATELET VOLUME 10.4 fL (7.4-10.4); MONOCYTES 5.8 % (2-11); NEUTROPHILS 82.3 % (40-80); PLATELET COUNT 183 10x3/uL (130-400); RBC 4.82 10x6/uL (4.20-6.10); RDW 13.8 % (11.5-14.5); WBC 12.3 10x3/uL (4.8-10.8)
[2016-10-16 11:02] LABS: ALBUMIN 3.1 g/dL (3.4-5.0); ALKALINE PHOSPHATASE 55 U/L (46-116); ALT (SGPT) 30 U/L (10-68); BILIRUBIN - TOTAL 0.59 mg/dL (0.2-1.3); CALC OSMOLALITY 280 mosm/kg (275-300); CALCIUM 9.3 mg/dL (8.5-10.1); CARBON DIOXIDE 24.6 mmol/L (21.0-32.0); CHLORIDE - SERUM 100 mmol/L (98-107); POTASSIUM - SERUM 4.2 mmol/L (3.5-5.1); PROTEIN - SERUM 6.8 g/dL (6.4-8.2); SODIUM 136 mmol/L (136-145); UREA NITROGEN 11 mg/dL (7-18); eGFR NON AFRICAN AMERICAN 78 mL/min (90-120)
[2016-10-16 11:08] LABS: GLUCOSE 277 mg/dL (74-106)
[2016-10-16 12:32] LABS: PRO BNP 207 pg/mL (0-125); TROPONIN-I < 0.017 ng/mL (0.000-0.060)
[2016-10-16] MEDS ORDERED: BAYER CHEWABLE81 MG PO (18:15)
[2016-10-16 19:00] VITALS: BP 99/79
--- NOTE | 2016-10-16 20:26 | NUR ---
PATIENT RESTING IN BED WITH NEB TREATMENT ON AND DENIES NEEDS AT THIS TIME. BED IN LOWEST POSITION AND CALL LIGHT WITHIN REACH. ENCOURAGED THE PATIENT TO CALL IF HE HAS NEEDS.
[2016-10-16 20:29] VITALS: BP 130/87; BMI 27.0
[2016-10-17 04:00] VITALS: BP 129/80
[2016-10-17 06:12] LABS: BASOPHILS 0 % (0-2); EOSINOPHILS 0.3 % (0-7); HEMATOCRIT 43.2 % (42.0-54.0); HEMOGLOBIN 14.3 g/dL (13.5-17.5); IMMATURE GRANULOCYTES 0.4 % (0-5); LYMPHOCYTES 12.6 % (15-50); MCH 29.7 pg (26.0-34.0); MCHC 33.1 g/dL (31.0-37.0); MEAN PLATELET VOLUME 10.9 fL (7.4-10.4); MONOCYTES 0.5 % (2-11); NEUTROPHILS 86.2 % (40-80); PLATELET COUNT 193 10x3/uL (130-400); RBC 4.81 10x6/uL (4.20-6.10); RDW 13.9 % (11.5-14.5)
[2016-10-17 06:14] LABS: MCV 89.8 fL (80.0-100.0); WBC 7.9 10x3/uL (4.8-10.8)
[2016-10-17 06:31] LABS: C-REACTIVE PROTEIN 2.3 mg/dL (0.0-0.9); CALC OSMOLALITY 289 mosm/kg (275-300); CALCIUM 9.2 mg/dL (8.5-10.1); CARBON DIOXIDE 26.9 mmol/L (21.0-32.0); CHLORIDE - SERUM 101 mmol/L (98-107); GLUCOSE 335 mg/dL (74-106); POTASSIUM - SERUM 5.6 mmol/L (3.5-5.1); SODIUM 138 mmol/L (136-145); UREA NITROGEN 14 mg/dL (7-18); eGFR NON AFRICAN AMERICAN 78 mL/min (90-120)
--- NOTE | 2016-10-17 07:42 | NUR ---
AWAKE AND ALERT TOLERATING RESPIRATORY TREATMENT. RESPIRATIONS EVEN AND NON LABORED. CALL LIGHT IN REACH AND DOOR OPEN. DENIES NEEDS AT THIS TIME. WILL CONTINUE WITH PLAN OF CARE.
[2016-10-17 08:32] VITALS: BP 139/88
--- NOTE | 2016-10-17 09:08 | NUR ---
SCHEDULED MEDICATIONS ADMINISTERED AT THIS TIME. ASSESSMENT PERFORMED PER FLOWSHEET. IV PATENT AND RESPIRATIONS EVEN AND NON LABORED. 2L OF OXYGEN ON NC. DENIES NEEDS. MADE NPO FOR CTA OF THE CHEST LATER TODAY. PT UNDERSTANDS. CALL LIGHT IN REACH, WILL CONTINUE WITH PLAN OF CARE.
[2016-10-17 11:00] LABS: HEMOGLOBIN A1C 8.4 % (4.8-6.0)
--- NOTE | 2016-10-17 12:01 | NUR ---
BLOOD SUGAR 441 AT THIS TIME. TREATED WITH 28 UNITS OF HUMULIN R PER ORDER. DR CHINO IN ROOM ASSESSING PT AT THIS TIME.
[2016-10-17 12:30] VITALS: BP 99/72
--- NOTE | 2016-10-17 13:27 | NUR ---
Patient Name: ROD YEBOAH Admission Status: ER Accout number: [id number] Admission Date: 10-16-2016 : 1945 Admission Diagnosis: Attending: LULÚ Current LOS: 1 Anticipated DC Date: 10-19-2016 Planned Disposition: Home Primary Insurance: MEDICARE A & B Discharge Planning Comments: CM SPOKE WITH PATIENT AND (LEONARDO) REGARDING D/C NEEDS AND PLANS. PATIENT STATED HIS WILL DRIVE HIM HOME. PATIENT STATED HE HAS 1 STEP TO ENTER HOME AND NO STAIRS INSIDE AND HIS HOME IS SAFE. PATIENT IS INDEPENDENT WITH HIS CARE AND HAS A WALKER, WHEELCHAIR, CANE, SHOWER CHAIR, AND BS COMMODE AT HOME. PATIENTS PCP IS DR. CHINO AND PHARMACY IS [facility] [address]. LAURIE DOES NOT WANT HOME HEALTH BUT WOULD LIKE HOUSECAL. CM WILL CONTINUE TO FOLLOW PATIENT WITH D/C NEEDS AND PLANS. PCP DR. [facility] [address] [phone] LEONARDO () [phone] Engine Head Repairer: Mckayla Bell Is the patient Alert and Oriented? Yes 0 * How many steps to enter\exit or inside your home? 1 0 * PCP DR. CHINO 0 * Pharmacy [facility] [address] 0 * Preadmission Environment Home with Family 0 * ADLs Independent 0 * Equipment Bedside Commode Cane Shower Chair Walker Wheelchair 0 * List name and contact numbers for known caregivers / representatives who currently or will assist patient after discharge: LEONARDO [phone] 0 * Community resources currently utilized None 0 * Additional services required to return to the preadmission environment? Yes 0 * Can the patient safely return to the preadmission environment? Yes 0 * Has this patient been hospitalized within the prior 30 days at any hospital? Yes 0 Grand Total: 0
--- NOTE | 2016-10-17 14:30 | NUR ---
IN CT SCAN AT THIS TIME. WILL REMOVE NPO STATUS ONCE PT RETURNS TO ROOM.
[2016-10-17 15:47] VITALS: Ht 188 cm; Wt 95.3 kg
[2016-10-17 16:02] VITALS: BP 94/56
--- NOTE | 2016-10-17 19:47 | NUR ---
SCHEDULED MEDICATIONS ADMINISTERED AT THIS TIME. DENIES NEEDS. CALL LIGHT IN REACH, WILL CONTINUE WITH PLAN OF CARE.
--- NOTE | 2016-10-17 21:37 | NUR ---
PATIENT RESTING IN BED. ALERT AND ORIENTED. NO SIGNS OF DISTRESS NOTED. SHIFT ASSESSMENT COMPLETED. DENIES ANY NEEDS AT THIS TIME. BED LOW. CALL LIGHT IN REACH
[2016-10-18] VITALS: BP 113/69
[2016-10-18 04:00] VITALS: BP 112/83
[2016-10-18 05:17] LABS: BASOPHILS 0.1 % (0-2); EOSINOPHILS 0 % (0-7); HEMOGLOBIN 13.5 g/dL (13.5-17.5); IMMATURE GRANULOCYTES 0.4 % (0-5); LYMPHOCYTES 8.3 % (15-50); MCH 30.4 pg (26.0-34.0); MCHC 34.6 g/dL (31.0-37.0); MEAN PLATELET VOLUME 10.7 fL (7.4-10.4); MONOCYTES 3.2 % (2-11); PLATELET COUNT 206 10x3/uL (130-400); RBC 4.44 10x6/uL (4.20-6.10); RDW 13.8 % (11.5-14.5)
[2016-10-18 05:34] LABS: CALCIUM 8.8 mg/dL (8.5-10.1); CARBON DIOXIDE 27.2 mmol/L (21.0-32.0); CHLORIDE - SERUM 102 mmol/L (98-107); CREATININE - SERUM 0.9 mg/dL (0.6-1.3); SODIUM 138 mmol/L (136-145); eGFR NON AFRICAN AMERICAN 88 mL/min (90-120)
[2016-10-18 05:36] LABS: CALC OSMOLALITY 283 mosm/kg (275-300); GLUCOSE 182 mg/dL (74-106); POTASSIUM - SERUM 4.6 mmol/L (3.5-5.1); UREA NITROGEN 20 mg/dL (7-18)
[2016-10-18 05:37] LABS: HEMOGLOBIN A1C 8.6 % (4.8-6.0)
[2016-10-18 05:47] LABS: MCV 87.8 fL (80.0-100.0); WBC 14.8 10x3/uL (4.8-10.8)
--- NOTE | 2016-10-18 07:55 | NUR ---
PT AOX4 RESP EVEN AND NONLABORED IV TO LEFT WRIST PATENT AND INTACT AT THIS TIME PT DENIES NEEDS AT THIS TIME SRX2 BED AT LOWEST SETTING CALL LIGHT WITHIN REACH WILL CONTINUE TO MONITOR
[2016-10-18 08:06] VITALS: BP 131/80
[2016-10-18 13:03] VITALS: BP 120/72
[2016-10-18 17:18] VITALS: BP 117/55
--- NOTE | 2016-10-18 18:09 | NUR ---
LOUISE TRIAGE ASSISTANT CALLED ABOUT GLUCOSE OF 455. LOUISE STATED WITH PT ON HIGH RESISTANCE SCALE THERE IS NOTHING ELSE WE CAN DO
[2016-10-18 20:00] VITALS: BP 112/69
[2016-10-19] VITALS: BP 120/70
--- NOTE | 2016-10-19 01:49 | NUR ---
RECIEVED REPORT AT 0100 FROM BREEZY CERRATO, RESUMED CARE OF PT. CHECKED IN ON PT AND RESTING QUIETLY. RR EVEN AND UNLABORED, NO S&S OF ACUTE DISTRESS NOTED. BED LOW AND LOCKED, CALL LIGHT IN REACH. IVF INFUSING AT KVO. WILL CONTINUE POC.
--- NOTE | 2016-10-19 02:50 | NUR ---
PT IV LEAKING AND HE REQUESTED IT TO BE REMOVED AND ANOTHER STARTED, I AGREED WITH THIS. PREVIOUS PIV DC'D WITH CATH TIP INTACT. NEW IV, 22G, 1ST ATTEMPT, TO LEFT FOREARM. FRESH IV TUBING/FLUIDS PROVIDED - LABELED/DATED. DENIES ANY OTHER NEEDS ATT, WILL CONTINUE POC.
[2016-10-19 04:00] VITALS: BP 121/69
[2016-10-19 06:06] LABS: BASOPHILS 0.1 % (0-2); EOSINOPHILS 0 % (0-7); HEMATOCRIT 38.1 % (42.0-54.0); HEMOGLOBIN 12.9 g/dL (13.5-17.5); IMMATURE GRANULOCYTES 0.4 % (0-5); MCH 29.9 pg (26.0-34.0); MCHC 33.9 g/dL (31.0-37.0); MCV 88.2 fL (80.0-100.0); MEAN PLATELET VOLUME 10.6 fL (7.4-10.4); MONOCYTES 2.7 % (2-11); NEUTROPHILS 88.8 % (40-80); PLATELET COUNT 198 10x3/uL (130-400); RBC 4.32 10x6/uL (4.20-6.10); RDW 13.8 % (11.5-14.5); WBC 13.7 10x3/uL (4.8-10.8)
[2016-10-19 06:31] LABS: CALC OSMOLALITY 283 mosm/kg (275-300); CALCIUM 8.8 mg/dL (8.5-10.1); CARBON DIOXIDE 26.7 mmol/L (21.0-32.0); CHLORIDE - SERUM 102 mmol/L (98-107); GLUCOSE 191 mg/dL (74-106); POTASSIUM - SERUM 4.8 mmol/L (3.5-5.1); SODIUM 138 mmol/L (136-145); UREA NITROGEN 20 mg/dL (7-18); eGFR NON AFRICAN AMERICAN 78 mL/min (90-120)
--- NOTE | 2016-10-19 07:50 | NUR ---
PT ASSESSMENT COMPLETE AWAKE AND ALERT ORINETD X 3 LUNGS CLAER WITH NOTED DIMINISHED RIGHT BASE. BSA X 4 QUADS. SIDE RAILS UP X 2 CALL LIGHT IN REACH PT ANXIOUS ABOUT BRONCHOSCOPY IN AM WILL MONITOR.
[2016-10-19 08:31] VITALS: BP 126/83
[2016-10-19 12:45] VITALS: BP 136/87
--- NOTE | 2016-10-19 15:10 | NUR ---
NUTRITION MONITORING & EVAL CHART REVIEWED, PT VISIT. TOLERATING ADA DIET, 75% INTAKE RECENT MEALS. WILL CONTINUE TO PROVIDE DIET, MONITOR PO INTAKE. RD FOLLOWING
[2016-10-19 16:37] VITALS: BP 121/75
--- NOTE | 2016-10-19 17:29 | NUR ---
PT AOX4 RESP EVEN AND NONLABORED O2 AT 2L/NC AT THIS TIME PT DENIES NEEDS AT THIS TIME IV TO LEFT FOREARM PATENT AND INTACT PT HERE FOR COPD AND DM FOR THIS VISIT SRX2 BED AT LOWEST SETTING WILL CONTINUE TO MONITOR
[2016-10-19 20:00] VITALS: BP 119/77
--- NOTE | 2016-10-19 20:08 | NUR ---
PT ASSESSMENT COMPLETE AWAKE AND ALERT ORINETED X 3 LUNGS CLEAR NOTED TO HAVE 2 LPM O2 PER CANULA VOICES ALL NEEDS OT STAFF NPO AFTER 4 AM FOR BRONCHOSCOPY IN AM
--- NOTE | 2016-10-19 22:10 | NUR ---
PT REC'D FROM ASHOK AVALOS. RESTING IN BED WITH EYES CLOSED. NO SIGNS OF DISTRESS. RESP EVEN AND UNLABORED. BED LOW, CALL LIGHT IN REACH, DENIES NEEDS. CPOC.
[2016-10-20] VITALS: BP 122/68
--- NOTE | 2016-10-20 00:20 | NUR ---
CURRENT FSBS 275. 16 UNITS OF INSULIN ADMINISTERED PER SS. RESTING IN BED WITH EYES CLOSED. SALINE LOCKED AT THIS TIME. BED LOW, CALL LIGHT IN REACH, DENIES NEEDS. CPOC.
--- NOTE | 2016-10-20 03:39 | NUR ---
PT IS RESTING QUIET IN BED WITH NO DISTRESS NOT. O2 IS ON AND RESPIRATIONS ARE EVEN AND UNLABORED. THE BED IS LOW, RAILS UP X'S 2 WITH THE CALL LIGHT AT HAND.
[2016-10-20 04:00] VITALS: BP 121/71
[2016-10-20 04:33] LABS: BASOPHILS 0 % (0-2); EOSINOPHILS 0 % (0-7); HEMATOCRIT 38.7 % (42.0-54.0); HEMOGLOBIN 13.1 g/dL (13.5-17.5); IMMATURE GRANULOCYTES 0.3 % (0-5); LYMPHOCYTES 7.6 % (15-50); MCH 29.8 pg (26.0-34.0); MCHC 33.9 g/dL (31.0-37.0); MCV 88.2 fL (80.0-100.0); MEAN PLATELET VOLUME 10.5 fL (7.4-10.4); MONOCYTES 3.5 % (2-11); NEUTROPHILS 88.6 % (40-80); PLATELET COUNT 207 10x3/uL (130-400); RBC 4.39 10x6/uL (4.20-6.10); WBC 10.9 10x3/uL (4.8-10.8)
[2016-10-20 04:43] LABS: INR 0.96 (0.85-1.17); PROTIME 12.6 SECONDS (11.6-15.0)
[2016-10-20 04:56] LABS: ALBUMIN 2.9 g/dL (3.4-5.0); ALKALINE PHOSPHATASE 49 U/L (46-116); ALT (SGPT) 23 U/L (10-68); BILIRUBIN - TOTAL 0.47 mg/dL (0.2-1.3); CALC OSMOLALITY 277 mosm/kg (275-300); CHLORIDE - SERUM 101 mmol/L (98-107); GLUCOSE 167 mg/dL (74-106); POTASSIUM - SERUM 4.3 mmol/L (3.5-5.1); PROTEIN - SERUM 6.1 g/dL (6.4-8.2); SODIUM 136 mmol/L (136-145); UREA NITROGEN 19 mg/dL (7-18); eGFR NON AFRICAN AMERICAN 78 mL/min (90-120)
--- NOTE | 2016-10-20 05:00 | NUR ---
DISCUSSED WITH PT ABOUT INSULIN DOSAGE DUE TO NPO STATUS. PT DECIDED TO REFUSE INSULIN SINCE HE WAS WORRIED HE WOULD NOT EAT ANYTHING BEFORE LUNCH. I AGREED. NO QUESTIONS OR CONCERNS VOICED AT THIS TIME. BED LOW, CALL LIGHT IN REACH, DENIES NEEDS. CPOC.
--- NOTE | 2016-10-20 07:50 | NUR ---
PT ASSESSMENT COMPLETE AWAKE AND ALERT ORIENTED X 3 LUNGS CLAER BILATERALLY NO ACUTE DISTRESS NOTED PT NPO FOR BRONCHOSCOPY TODAY WITH DR WEBER. WILL MONITOR
[2016-10-20 08:39] VITALS: BP 135/88
--- NOTE | 2016-10-20 10:37 | NUR ---
NPO WAITING ON PROCEDURE.FAMILY AT SIDE.CALL LIGHT IN REACH
[2016-10-20 13:10] VITALS: BP 153/83
--- NOTE | 2016-10-20 13:22 | NUR ---
PT TO SPECIALS THIS TIME FOR BRONCHOSCOPY
--- NOTE | 2016-10-20 13:26 | EC ---
PATIENT:ROD YEBOAH DATE OF SERVICE: 10/16/16 SEX: M MEDICAL RECORD: [id number] DATE OF : [birth year] LOCATION:[facility] [place] AGE OF PATIENT: 71 ADMISSION DATE: 10/16/16 REFERRING PHYSICIAN: INTERPRETING PHYSICIAN: SARA DAVID M.D. ECHOCARDIOGRAM REPORT ECHO CHARGES 4 ECHO COMPLETE CLINICAL DIAGNOSIS: ELEVATED BNP HX CAD/STENTS ECHOCARDIOGRAPHIC MEASUREMENTS (adult normal given) AC root (d.<3.7cm) 3.6 LV Septum d (<1.2 cm> 1.5 Valve Excursion 1.5 LV Septum (systole) 1.7 Left Atria (s.<4.0cm> 4.1 LVPW d(<1.2cm) 1.4 RV (d.<2.3cm) 4.3 LVPW (sytole) 1.9 LV diastole(<5.6CM) 5.8 MV E-F(>70mm/sec) LV systole 4.4 LVOT Diameter 1.0 MV exc.(>10mm) 1.6 Est.ejection fraction (50-75%) Pericardial Effusion N DOPPLER: LVIT A 128 E 62.0 LA RVSP 31 LVOT 115 AOP1/2T Asc. Ao 193 RVOT 111 RA PA 152 AV Gradient Peak 14.91 AV Mean 7.14 AV Area 1.0 MV Gradient Peak 5.77 MV Mean 1.91 MV Area COMMENTS: Curtain Hemmer Automatic: Chidi CULLEN Sample Washer:Chidi David TAPE# PACS DATE OF SERVICE: 10/17/2016 REFERRING PHYSICIAN: Dr. Jerry Quintana. INDICATION: Congestive heart failure, coronary artery disease. DESCRIPTION: Left ventricle demonstrates left ventricular hypertrophy. No wall motion abnormalities are noted. Estimated ejection fraction is 55%. Mitral valve is structurally normal. There is no regurgitation or prolapse seen. Left atrium is mildly dilated. The aortic valve leaflets are thickened. There is no ECHOCARDIOGRAM REPORT [id number] ROD YEBOAH stenosis or regurgitation seen. Right ventricle is mildly dilated. Tricuspid valve is structurally normal. There is mild regurgitation noted. Right atrium is mildly dilated. There is no pericardial effusion seen. IMPRESSION: 1. Left ventricular hypertrophy with preserved ejection fraction of 55%. 2. Mild tricuspid regurgitation. TRANSINT:[id number] Voice Confirmation ID: [id number] DOCUMENT ID: [id number] SARA DAVID M.D. at 1326 CC: [id number] DICTATION DATE: 10/17/16 1256 AIRCRAFT ELECTRICAL SYSTEMS SPECIALIST: 10/17/162028 ADM IN [facility] [address] [place] [address]
[2016-10-20 16:37] VITALS: BP 132/82
--- NOTE | 2016-10-20 18:48 | NUR ---
PT RETURNED VIA BED FROM BRONCHOSCOPY EARLIER TOLERATED WELL EATING SUPPER MEAL AT THIS TIME NO DISTRESS NOTED WILL MONITOR. PT IS VERY EMOTIONAL DR WEBER TOLD PT FINDING OF BRONCHOSCOPY IS VERY SUSPICIOUS FOR CANCER.
[2016-10-20 20:00] VITALS: BP 118/73
--- NOTE | 2016-10-20 20:02 | NUR ---
PATIENT RESTING IN BED AND DENIES NEEDS AT THIS TIME. NO SIGNS OF DISTRESS. BED IN LOWEST POSITION AND CALL LIGHT WITHIN REACH. ENCOURAGED THE PATIENT TO CALL IF HE HAS NEEDS.
[2016-10-21] VITALS: BP 126/84
[2016-10-21 04:00] VITALS: BP 122/70
[2016-10-21 08:20] VITALS: BP 139/84
--- NOTE | 2016-10-21 09:08 | NUR ---
PT ASSESSMENT COMPLETE AWAKE AND ALERT ORIENTED X 3 LUNGS CLEAR BILATERAL BSA X 4 QUADS VASQUEZ PATENT TO DARK YELLOW URINE.
--- NOTE | 2016-10-21 10:39 | CN ---
PATIENT NAME:ROD YEBOAH MEDICAL RECORD: [id number] : 43 LOCATION:D.MS [facility] ADMIT DATE: 10/16/16 ACCOUNT: [id number] CONSULTING PHYSICIAN: JOHN WEINBERG MD REFERRING PHYSICIAN: HUNTER CHINO MD DATE OF CONSULTATION: 10/19/2016 HISTORY OF PRESENT ILLNESS: A 71-year-old gentleman with known history of coronary artery disease, status post PTCA and stenting with Resolute stent. Last month, he was admitted with dyspnea, found to have 4 cm left lower lobe mass on CT, had postobstructive pneumonia in this area. He is currently on antibiotics preoperatively. Of note, he has had no recurrent angina, was given medicated stent. Plan is to hold Plavix 1-2 days, which is quite acceptable from our standpoint. PAST MEDICAL HISTORY: 1. Left lower lobe mass. 2. Coronary artery disease as described above. 3. Hypertension. 4. Dyslipidemia. 5. Diabetes mellitus. MEDICATIONS: Typically include Plavix 75 mg p.o. daily, Lotrel 5/10 daily, Lipitor 10 mg daily, aspirin 81 daily. ALLERGIES: None known. SOCIAL HISTORY: Lives here in [place]. Easily takes care of all ADLs. Nonsmoker. REVIEW OF SYSTEMS: The patient reports easy bruising but reports no swollen glands. The patient reports no fever, no night sweats, no significant weight gain, no significant weight loss. No significant exercise tolerance. The patient reports no dry eyes, no irritation, no vision change. Patient reports no difficulty hearing and no ear pain. Patient reports no frequent nose bleeds or nose and sinus problems. Patient reports on arm pain on exertion. No shortness of breath while lying down. No history of heart murmur. Patient reports no cough, no wheezing or coughing up blood. Patient reports no abdominal pain, no vomiting. Normal appetite. No diarrhea and not vomiting blood. No nausea and no constipation. Patient reports no incontinence. No difficulty urinating. No hematuria. No increased frequency. Patient reports no muscle aches. No weakness, no arthralgias, no back pain. No swelling of the extremities. Patient reports no abnormal mole, no jaundice, no rashes. Reports no loss of consciousness. No weakness and no numbness. No seizures, dizziness, or headaches. The patient reports no depression, no sleep disturbance, feeling safe in a relationship and no alcohol abuse. Patient reports on fatigue. Reports no runny nose or sinus pressure. No itching, no hives, and no frequent sneezing. PHYSICAL EXAMINATION: GENERAL: Pleasant gentleman, in no acute distress. VITAL SIGNS: Blood pressure 121/69, pulse 84 and regular. HEENT: Normocephalic, atraumatic. NECK: No JVD or bruit. HEART: Regular. CONSULT REPORT [id number] ROD YEBOAH LUNGS: Renee are clear. ABDOMEN: Soft, nontender. EXTREMITIES: Pulses 2+. There is no edema. NEUROLOGIC: Grossly intact. IMPRESSION: Okay to proceed with bronchoscopy from a cardiovascular standpoint, can restart Plavix p.m. of the procedure. TRANSINT:[id number] Voice Confirmation ID: [id number] DOCUMENT ID: [id number] JOHN WEINBERG MD at 1039 CC: [id number] DICTATION DATE: 10/19/16824 MONEY EXAMINER: 10/19/162145 ADM IN [facility] [address] [place] [address]
[2016-10-21 11:53] VITALS: BP 136/82
--- NOTE | 2016-10-21 12:46 | NUR ---
PT AWAKE AND ALERT ORIENTED X 3 NO DISTRESS NOTED VOICES ALL NEEDS CALL LIGHT IN REACH
--- NOTE | 2016-10-21 14:30 | NUR ---
AWAKE AND ALERT AT THIS TIME WITH FAMILY AT BEDSIDE. OXYGEN ON 2L AT THIS TIME. SCD'S OFF AT THIS TIME. CALL LIGHT IN REACH, WILL CONTINUE WITH PLAN OF CARE.
[2016-10-21 15:56] VITALS: BP 105/77
[2016-10-21 18:07] LABS: ACID FAST SMEAR Negative (()); AFB SPECIMEN PROCESSING Concentration (())
[2016-10-21 20:00] VITALS: BP 107/68
--- NOTE | 2016-10-21 20:18 | NUR ---
PATIENT RESTING IN BED AND DENIES NEEDS AT THIS TIME. BED IN LOWEST POSITION AND CALL LIGHT WITHIN REACH. ENCOURAGED THE PATIENT TO CALL IF HE HAS NEEDS.
[2016-10-22] VITALS: BP 125/71
[2016-10-22 04:00] VITALS: BP 135/86
[2016-10-22 08:23] VITALS: BP 143/82
[2016-10-22 12:42] VITALS: BP 137/83
[2016-10-22 17:04] VITALS: BP 121/84
--- NOTE | 2016-10-22 18:00 | NUR ---
STARTED IV TO RIGHT FOREARM. D/C IV WITH CATHETER INTACT TO LEFT FOREARM DUE TO PATIENT VERBALIZING IV BURNING.
[2016-10-22 19:00] VITALS: BP 123/75
--- NOTE | 2016-10-22 21:53 | NUR ---
PATIENT RESTING IN BED. ALERT AND ORIENTED. NO SIGNS OF DISTRESS NOTED. SCHEDULED MEDS GIVEN. SHIFT ASSESSMENT COMPLETED. DENIES ANY NEEDS AT THIS TIME. BED LOW. CALL LIGHT IN REACH
[2016-10-23 02:49] VITALS: BP 116/76
[2016-10-23 04:00] VITALS: BP 148/84
--- NOTE | 2016-10-23 04:51 | NUR ---
PATIENT RESTING WITH EYES CLOSED. NO VISIBLE SIGNS OF DISTRESS. BED IN LOWEST POSITION AND CALL LIGHT WITHIN REACH.
[2016-10-23 08:24] VITALS: BP 164/83
--- NOTE | 2016-10-23 09:45 | NUR ---
PATIENT VERBALIZED FEELING SHORT OF BREATH. OXGYEN SATURATION 91% APPLIED 2L/MIN OF OXYGEN VIA NASAL CANNULA
[2016-10-23 11:10] LABS: FUNGUS STAIN Final report (())
[2016-10-23 11:20] VITALS: BP 126/51
[2016-10-23 16:12] VITALS: BP 118/72
[2016-10-23 19:00] VITALS: BP 116/75
--- NOTE | 2016-10-23 20:45 | NUR ---
PATIENT SITING UP IN BED. ALERT AND ORIENTED. NO SIGNS OF DISTRESS NOTED. SCHEDULED MEDS GIVEN. SHIFT ASSESSMENT COMPLETED. DENIES ANY NEEDS AT THIS TIME. BED LOW. CALL LIGHT IN REACH
--- NOTE | 2016-10-23 21:00 | NUR ---
PATIENT C/O BURNING PAIN AT IV SITE. DIFFICULT TO FLUSH. IV DC'D WITH CATH TIP INTACT. NEW IV STARTED TO RIGHT FOREARM ON FIRST ATTEMPT. TOLERATED WITHOUT COMPLAINTS. BED LOW. CALL LIGHT IN REACH
[2016-10-24 04:00] VITALS: BP 140/94
[2016-10-24 08:16] VITALS: BP 125/72
--- NOTE | 2016-10-24 08:38 | NUR ---
PT ASSESSMENT COMPLETE AWAKD AND ALERT ORINETD X 3 LUNGS WITH NOTED INSPIRATRY WHEEZE AND EXPIRATORY WHEEZE IN BILATERAL UPPER POSTERRIOR LOBE
[2016-10-24 09:56] LABS: BASOPHILS 0.1 % (0-2); EOSINOPHILS 1.8 % (0-7); HEMATOCRIT 41.4 % (42.0-54.0); IMMATURE GRANULOCYTES 1.7 % (0-5); LYMPHOCYTES 19.9 % (15-50); MCHC 33.8 g/dL (31.0-37.0); MCV 88.8 fL (80.0-100.0); MEAN PLATELET VOLUME 10.7 fL (7.4-10.4); MONOCYTES 8.9 % (2-11); NEUTROPHILS 67.6 % (40-80); PLATELET COUNT 188 10x3/uL (130-400); RBC 4.66 10x6/uL (4.20-6.10); RDW 14.1 % (11.5-14.5); WBC 10.9 10x3/uL (4.8-10.8)
[2016-10-24 10:24] LABS: ALBUMIN 2.8 g/dL (3.4-5.0); ALKALINE PHOSPHATASE 44 U/L (46-116); ALT (SGPT) 25 U/L (10-68); BILIRUBIN - TOTAL 0.76 mg/dL (0.2-1.3); CALC OSMOLALITY 276 mosm/kg (275-300); CALCIUM 8.6 mg/dL (8.5-10.1); CARBON DIOXIDE 26.8 mmol/L (21.0-32.0); CHLORIDE - SERUM 99 mmol/L (98-107); GLUCOSE 287 mg/dL (74-106); PROTEIN - SERUM 6.2 g/dL (6.4-8.2); SODIUM 133 mmol/L (136-145); UREA NITROGEN 16 mg/dL (7-18); eGFR NON AFRICAN AMERICAN 78 mL/min (90-120)
[2016-10-24] MEDS ORDERED: PULMICORT0.5 MG/21 INH (10:39)
[2016-10-24] MEDS ORDERED: BENZONATATE200 MG PO (10:39)
[2016-10-24] MEDS ORDERED: PREDNISONE20 MG PO (10:40)
[2016-10-24] MEDS ORDERED: FLORAJEN3 CAPS460 MG PO (10:40)
[2016-10-24] MEDS ORDERED: MUCINEX DM ER1 EAC1 PO (10:40)
[2016-10-24] MEDS ORDERED: SINGULAIR10 MG PO (10:40)
[2016-10-24] MEDS ORDERED: GLUCOPHAGE500 MG PO (10:40)
[2016-10-24] MEDS ORDERED: DIFLUCAN100 MG PO (10:41)
[2016-10-24] MEDS ORDERED: NYSTATIN ORAL SU5 ML PO (10:41)
[2016-10-24] MEDS ORDERED: IPRAT-ALBUT 0.5-3 ML INH (10:41)
[2016-10-24] MEDS ORDERED: K-TAB10 MEQ PO (10:41)
[2016-10-24] MEDS ORDERED: ALBUTEROL2.5 MG/3 M UPD (10:42)
[2016-10-24 11:48] VITALS: BP 125/77
--- NOTE | 2016-10-24 11:58 | NUR ---
PATIENT AWAKE, ALERT AND ORIENTED X'S 4. RESPIRATIONS ARE EVEN AND UNLABORED ON ROOM AIR. NO SIGNS OF DISTRESS NOTED. BED IN LOWEST POSITION, CALL LIGHT IN REACH. BED RIALS UP X'S 2.
--- NOTE | 2016-10-24 13:52 | NUR ---
PT DISCHARGED NO ACUTE DISTRESS NOTED DISCHARGED WITH FAMILY. EXPRESSED UNDERSTANDING OF DISCGHARGE INSTRUCTIONS
== END 2016-10-24 13:54 | disposition home health service (06) | DRG 180 ==
LOC: D.ER 10:05 → D.MS 16:55
PROVIDERS: Emergency Medicine Emergency Medical Services; Internal Medicine Pulmonary Disease; Physician Assistant; ADMIT Family Medicine
PROC: 0BBB8ZX Excision of Left Lower Lobe Bronchus, Via Natural or Artificial Opening Endoscopic, Diagnostic (ICD-10-PCS; principal; 2016-10-20)
PROC: 0BB78ZX Excision of Left Main Bronchus, Via Natural or Artificial Opening Endoscopic, Diagnostic (ICD-10-PCS; 2016-10-20)
DX: C34.32 Malignant neoplasm of lower lobe, left bronchus or lung (principal); J18.1 Lobar pneumonia, unspecified organism; J44.0 Chronic obstructive pulmonary disease with (acute) lower respiratory infection; B37.0 Candidal stomatitis; I10 Essential (primary) hypertension; I25.10 Atherosclerotic heart disease of native coronary artery without angina pectoris; K21.9 Gastro-esophageal reflux disease without esophagitis; E78.5 Hyperlipidemia, unspecified; E11.65 Type 2 diabetes mellitus with hyperglycemia; R79.89 Other specified abnormal findings of blood chemistry; E87.5 Hyperkalemia; I07.1 Rheumatic tricuspid insufficiency

== ENCOUNTER → 2016-11-02 07:30 | Outpatient (CLI) | payer MEDICARE, OTHER ==
[2016-10-17 15:47] VITALS: BMI 26.9
[~2016-11-02 07:30] MED LIST changes: +ALBUTEROL2.5 MG/3 M UPD; +BAYER CHEWABLE81 MG PO; +BENZONATATE200 MG PO; +DIFLUCAN100 MG PO; +FLORAJEN3 CAPS460 MG PO; +GLUCOPHAGE500 MG PO; +IPRAT-ALBUT 0.5-3 ML INH; +K-TAB10 MEQ PO; +MUCINEX DM ER1 EAC1 PO; +NYSTATIN ORAL SU5 ML PO; +PREDNISONE20 MG PO; +PULMICORT0.5 MG/21 INH; +SINGULAIR10 MG PO
== END ==
LOC: D.MRI 07:30
DX: C34.92 Malignant neoplasm of unspecified part of left bronchus or lung (principal)

== ENCOUNTER → 2016-11-20 12:13 | Outpatient (CLI) | payer MEDICARE, OTHER ==
[2016-10-17 15:47] VITALS: BMI 26.9
== END | disposition home or self-care (01) ==
LOC: D.RT 12:13 → D.NM 14:00
DX: R91.8 Other nonspecific abnormal finding of lung field (principal)

== ENCOUNTER 2017-04-11 12:37 | Inpatient (IN) | payer MEDICARE, OTHER ==
[~2017-04-11] VITALS: Ht 185.4 cm; Wt 85.7 kg
[2017-04-11 13:17] VITALS: BP 131/83; BMI 24.4
[2017-04-11] MEDS ORDERED: LEVAQUIN500 MG PO (13:54)
[2017-04-11] MEDS ORDERED: PACERONE200 MG PO (13:55)
[2017-04-11 14:43] LABS: BASOPHILS 0.2 % (0-2); EOSINOPHILS 0.6 % (0-7); HEMATOCRIT 31.3 % (42.0-54.0); HEMOGLOBIN 10.5 g/dL (13.5-17.5); IMMATURE GRANULOCYTES 0.6 % (0-5); LYMPHOCYTES 11.1 % (15-50); MCH 29.7 pg (26.0-34.0); MCHC 33.5 g/dL (31.0-37.0); MCV 88.7 fL (80.0-100.0); MEAN PLATELET VOLUME 10.6 fL (7.4-10.4); MONOCYTES 8.5 % (2-11); PLATELET COUNT 207 10x3/uL (130-400); RBC 3.53 10x6/uL (4.20-6.10); RDW 17.5 % (11.5-14.5)
[2017-04-11 15:10] LABS: ALBUMIN 2.8 g/dL (3.4-5.0); ALKALINE PHOSPHATASE 82 U/L (46-116); ALT (SGPT) 39 U/L (10-68); BILIRUBIN - TOTAL 0.44 mg/dL (0.2-1.3); CALC OSMOLALITY 275 mosm/kg (275-300); CALCIUM 8.3 mg/dL (8.5-10.1); CARBON DIOXIDE 27.5 mmol/L (21.0-32.0); CHLORIDE - SERUM 100 mmol/L (98-107); CREATININE - SERUM 0.7 mg/dL (0.6-1.3); MAGNESIUM - SERUM 1.6 mg/dL (1.8-2.4); PHOSPHOROUS 3.9 mg/dL (2.5-4.9); POTASSIUM - SERUM 4.3 mmol/L (3.5-5.1); PRO BNP 283 pg/mL (0-125); PROTEIN - SERUM 6.5 g/dL (6.4-8.2); SODIUM 137 mmol/L (136-145); UREA NITROGEN 17 mg/dL (7-18); eGFR NON AFRICAN AMERICAN > 90 mL/min (90-120)
[2017-04-11 15:15] LABS: GLUCOSE 101 mg/dL (74-106)
[2017-04-11 15:27] VITALS: BP 131/83
[2017-04-11 20:00] VITALS: BP 108/69
[2017-04-11 23:04] LABS: APPEARANCE CLEAR (CLEAR); BILIRUBIN NEGATIVE (NEGATIVE); COLOR YELLOW (YELLOW); GLUCOSE NEGATIVE (NEGATIVE); KETONE NEGATIVE (NEGATIVE); NITRITE NEGATIVE (NEGATIVE); PROTEIN NEGATIVE (NEGATIVE); UROBILINOGEN NORMAL (NORMAL)
[2017-04-12] VITALS: BP 107/88
[2017-04-12 04:00] VITALS: BP 114/73
[2017-04-12 06:18] LABS: BASOPHILS 0.2 % (0-2); EOSINOPHILS 0.8 % (0-7); HEMOGLOBIN 11.3 g/dL (13.5-17.5); IMMATURE GRANULOCYTES 0.3 % (0-5); LYMPHOCYTES 22.4 % (15-50); MCH 29.7 pg (26.0-34.0); MCHC 33.2 g/dL (31.0-37.0); MCV 89.5 fL (80.0-100.0); MEAN PLATELET VOLUME 10.5 fL (7.4-10.4); MONOCYTES 6.1 % (2-11); NEUTROPHILS 70.2 % (40-80); RDW 17.7 % (11.5-14.5)
[2017-04-12 06:23] LABS: ALBUMIN 2.7 g/dL (3.4-5.0); ALKALINE PHOSPHATASE 76 U/L (46-116); ALT (SGPT) 35 U/L (10-68); CALCIUM 9.1 mg/dL (8.5-10.1); CARBON DIOXIDE 24.8 mmol/L (21.0-32.0); CHLORIDE - SERUM 100 mmol/L (98-107); POTASSIUM - SERUM 4.3 mmol/L (3.5-5.1); PROTEIN - SERUM 7.2 g/dL (6.4-8.2); SODIUM 137 mmol/L (136-145); UREA NITROGEN 13 mg/dL (7-18); eGFR NON AFRICAN AMERICAN 88 mL/min (90-120)
[2017-04-12 06:28] LABS: CALC OSMOLALITY 276 mosm/kg (275-300); CREATININE - SERUM 0.9 mg/dL (0.6-1.3); GLUCOSE 150 mg/dL (74-106)
[2017-04-12 06:29] LABS: PLATELET COUNT 257 10x3/uL (130-400)
[2017-04-12 08:54] VITALS: BP 127/72
[2017-04-12 12:55] VITALS: BP 119/76
[2017-04-12 13:53] VITALS: Ht 185.4 cm; Wt 85.7 kg
[2017-04-12 16:01] VITALS: BP 102/64
[2017-04-12 21:58] VITALS: BP 115/70
[2017-04-13 02:20] VITALS: BP 112/75
[2017-04-13 05:18] VITALS: BP 117/79
[2017-04-13 06:37] LABS: BASOPHILS 0 % (0-2); EOSINOPHILS 0 % (0-7); HEMATOCRIT 29.1 % (42.0-54.0); HEMOGLOBIN 9.9 g/dL (13.5-17.5); LYMPHOCYTES 7.9 % (15-50); MCH 29.8 pg (26.0-34.0); MCV 87.7 fL (80.0-100.0); MEAN PLATELET VOLUME 10.6 fL (7.4-10.4); MONOCYTES 1.6 % (2-11); NEUTROPHILS 90.5 % (40-80); PLATELET COUNT 209 10x3/uL (130-400); RBC 3.32 10x6/uL (4.20-6.10); RDW 17.1 % (11.5-14.5); WBC 4.5 10x3/uL (4.8-10.8)
[2017-04-13 07:07] LABS: ALBUMIN 2.5 g/dL (3.4-5.0); ALKALINE PHOSPHATASE 64 U/L (46-116); ALT (SGPT) 33 U/L (10-68); CALC OSMOLALITY 277 mosm/kg (275-300); CALCIUM 8.9 mg/dL (8.5-10.1); CARBON DIOXIDE 24.3 mmol/L (21.0-32.0); CHLORIDE - SERUM 101 mmol/L (98-107); CREATININE - SERUM 0.7 mg/dL (0.6-1.3); MAGNESIUM - SERUM 1.7 mg/dL (1.8-2.4); PHOSPHOROUS 3.9 mg/dL (2.5-4.9); POTASSIUM - SERUM 4.7 mmol/L (3.5-5.1); PROTEIN - SERUM 6.5 g/dL (6.4-8.2); SODIUM 135 mmol/L (136-145); UREA NITROGEN 15 mg/dL (7-18); eGFR NON AFRICAN AMERICAN > 90 mL/min (90-120)
[2017-04-13 07:08] LABS: GLUCOSE 230 mg/dL (74-106)
[2017-04-13 08:38] VITALS: BP 119/83
[2017-04-13 12:00] VITALS: BP 102/69
[2017-04-13 16:40] VITALS: BP 123/76
[2017-04-13 22:40] VITALS: BP 101/56
[2017-04-14 02:08] VITALS: BP 110/71
[2017-04-14 06:37] VITALS: BP 117/75
[2017-04-14 06:53] LABS: BASOPHILS 0 % (0-2); EOSINOPHILS 0 % (0-7); HEMATOCRIT 29.7 % (42.0-54.0); IMMATURE GRANULOCYTES 0.4 % (0-5); LYMPHOCYTES 9.3 % (15-50); MCH 29.7 pg (26.0-34.0); MCHC 33.7 g/dL (31.0-37.0); MCV 88.1 fL (80.0-100.0); MEAN PLATELET VOLUME 10.4 fL (7.4-10.4); MONOCYTES 0.4 % (2-11); NEUTROPHILS 89.9 % (40-80); PLATELET COUNT 235 10x3/uL (130-400); RBC 3.37 10x6/uL (4.20-6.10); RDW 17.3 % (11.5-14.5); WBC 4.9 10x3/uL (4.8-10.8)
[2017-04-14 07:11] LABS: ALBUMIN 2.5 g/dL (3.4-5.0); ALKALINE PHOSPHATASE 63 U/L (46-116); ALT (SGPT) 30 U/L (10-68); BILIRUBIN - TOTAL 0.38 mg/dL (0.2-1.3); CALC OSMOLALITY 278 mosm/kg (275-300); CALCIUM 8.5 mg/dL (8.5-10.1); CHLORIDE - SERUM 100 mmol/L (98-107); CREATININE - SERUM 0.7 mg/dL (0.6-1.3); GLUCOSE 227 mg/dL (74-106); POTASSIUM - SERUM 4.5 mmol/L (3.5-5.1); PROTEIN - SERUM 6.6 g/dL (6.4-8.2); SODIUM 135 mmol/L (136-145); UREA NITROGEN 17 mg/dL (7-18); eGFR NON AFRICAN AMERICAN > 90 mL/min (90-120)
[2017-04-14 08:00] VITALS: BP 156/85
[2017-04-14 12:00] VITALS: BP 114/67
[2017-04-14 16:00] VITALS: BP 106/66
[2017-04-14 21:07] VITALS: BP 116/75
[2017-04-15 00:42] VITALS: BP 112/60
[2017-04-15 04:46] VITALS: BP 129/81
[2017-04-15 06:24] LABS: BASOPHILS 0 % (0-2); EOSINOPHILS 0 % (0-7); HEMATOCRIT 28.6 % (42.0-54.0); HEMOGLOBIN 9.7 g/dL (13.5-17.5); IMMATURE GRANULOCYTES 1.7 % (0-5); LYMPHOCYTES 7.3 % (15-50); MCH 30.1 pg (26.0-34.0); MCHC 33.9 g/dL (31.0-37.0); MCV 88.8 fL (80.0-100.0); MEAN PLATELET VOLUME 10.4 fL (7.4-10.4); MONOCYTES 1.9 % (2-11); NEUTROPHILS 89.1 % (40-80); PLATELET COUNT 231 10x3/uL (130-400); RBC 3.22 10x6/uL (4.20-6.10); RDW 17.1 % (11.5-14.5)
[2017-04-15 06:28] LABS: WBC 6.5 10x3/uL (4.8-10.8)
[2017-04-15 06:45] LABS: ALBUMIN 2.2 g/dL (3.4-5.0); ALKALINE PHOSPHATASE 57 U/L (46-116); ALT (SGPT) 25 U/L (10-68); CALC OSMOLALITY 281 mosm/kg (275-300); CALCIUM 8.5 mg/dL (8.5-10.1); CARBON DIOXIDE 26.4 mmol/L (21.0-32.0); CHLORIDE - SERUM 102 mmol/L (98-107); CREATININE - SERUM 0.7 mg/dL (0.6-1.3); GLUCOSE 270 mg/dL (74-106); POTASSIUM - SERUM 4.5 mmol/L (3.5-5.1); PROTEIN - SERUM 5.8 g/dL (6.4-8.2); SODIUM 135 mmol/L (136-145); UREA NITROGEN 18 mg/dL (7-18); eGFR NON AFRICAN AMERICAN > 90 mL/min (90-120)
[2017-04-15 08:00] VITALS: BP 151/100
[2017-04-15 12:00] VITALS: BP 129/70
[2017-04-15 16:00] VITALS: BP 143/74
[2017-04-15 20:19] VITALS: BP 138/77
[2017-04-16 00:36] VITALS: BP 135/78
[2017-04-16 05:25] VITALS: BP 142/88
[2017-04-16 05:40] LABS: BASOPHILS 0.1 % (0-2); EOSINOPHILS 0 % (0-7); HEMATOCRIT 29.9 % (42.0-54.0); HEMOGLOBIN 10.2 g/dL (13.5-17.5); LYMPHOCYTES 7.2 % (15-50); MCH 30.4 pg (26.0-34.0); MCHC 34.1 g/dL (31.0-37.0); MCV 89.3 fL (80.0-100.0); MEAN PLATELET VOLUME 10.5 fL (7.4-10.4); MONOCYTES 4.1 % (2-11); NEUTROPHILS 84.6 % (40-80); PLATELET COUNT 224 10x3/uL (130-400); RBC 3.35 10x6/uL (4.20-6.10); RDW 17.3 % (11.5-14.5)
[2017-04-16 05:53] LABS: WBC 8.3 10x3/uL (4.8-10.8)
[2017-04-16 05:58] LABS: ALBUMIN 2.4 g/dL (3.4-5.0); ALKALINE PHOSPHATASE 57 U/L (46-116); ALT (SGPT) 30 U/L (10-68); BILIRUBIN - TOTAL 0.38 mg/dL (0.2-1.3); CALC OSMOLALITY 286 mosm/kg (275-300); CALCIUM 8.3 mg/dL (8.5-10.1); CARBON DIOXIDE 27.5 mmol/L (21.0-32.0); CHLORIDE - SERUM 101 mmol/L (98-107); CREATININE - SERUM 0.8 mg/dL (0.6-1.3); GLUCOSE 305 mg/dL (74-106); POTASSIUM - SERUM 4.6 mmol/L (3.5-5.1); PROTEIN - SERUM 6.1 g/dL (6.4-8.2); SODIUM 137 mmol/L (136-145); UREA NITROGEN 18 mg/dL (7-18); eGFR NON AFRICAN AMERICAN > 90 mL/min (90-120)
[2017-04-16 08:00] VITALS: BP 132/86
[2017-04-16 12:00] VITALS: BP 131/78
[2017-04-16 16:00] VITALS: BP 144/78
[2017-04-16 20:11] VITALS: BP 136/87
[2017-04-17 00:04] VITALS: BP 122/72
[2017-04-17 04:24] VITALS: BP 134/72
[2017-04-17 04:46] LABS: BASOPHILS 0.3 % (0-2); EOSINOPHILS 0 % (0-7); HEMOGLOBIN 9.8 g/dL (13.5-17.5); IMMATURE GRANULOCYTES 5.7 % (0-5); LYMPHOCYTES 9.6 % (15-50); MCH 30.2 pg (26.0-34.0); MCHC 33.8 g/dL (31.0-37.0); MCV 89.2 fL (80.0-100.0); MONOCYTES 5.4 % (2-11); PLATELET COUNT 202 10x3/uL (130-400); RBC 3.25 10x6/uL (4.20-6.10); RDW 17.6 % (11.5-14.5); WBC 7.8 10x3/uL (4.8-10.8)
[2017-04-17 05:07] LABS: CALC OSMOLALITY 283 mosm/kg (275-300); CALCIUM 8.3 mg/dL (8.5-10.1); CARBON DIOXIDE 27.6 mmol/L (21.0-32.0); CHLORIDE - SERUM 100 mmol/L (98-107); CREATININE - SERUM 0.7 mg/dL (0.6-1.3); GLUCOSE 307 mg/dL (74-106); POTASSIUM - SERUM 4.7 mmol/L (3.5-5.1); SODIUM 135 mmol/L (136-145); UREA NITROGEN 19 mg/dL (7-18); eGFR NON AFRICAN AMERICAN > 90 mL/min (90-120)
[2017-04-17 08:17] VITALS: BP 123/91
[2017-04-17 12:15] VITALS: BP 129/75
[2017-04-17 14:53] VITALS: BP 113/70
[2017-04-17 20:06] VITALS: BP 125/79
[2017-04-18 00:45] VITALS: BP 131/73
[2017-04-18 05:11] VITALS: BP 129/82
[2017-04-18 08:15] VITALS: BP 149/88
[2017-04-18 12:14] VITALS: BP 132/79
[2017-04-18] MEDS ORDERED: LEVAQUIN750 MG PO (12:24)
[2017-04-18] MEDS ORDERED: MUCINEX DM ER1 EAC1 PO (12:24)
[2017-04-18] MEDS ORDERED: IPRAT-ALBUT 0.5-3 ML UPD ×2 (12:24)
[2017-04-18] MEDS ORDERED: BENZONATATE200 MG PO (12:24)
[2017-04-18] MEDS ORDERED: PREDNISONE10 MG PO (12:25)
[2017-04-18] MEDS ORDERED: FLORAJEN3 CAPS460 MG PO (12:25)
== END 2017-04-18 17:13 | disposition home or self-care (01) | DRG 178 ==
LOC: D.M2 12:37
PROVIDERS: Emergency Medicine; ADMIT Family Medicine
DX: J15.8 Pneumonia due to other specified bacteria (principal); C34.00 Malignant neoplasm of unspecified main bronchus; E44.0 Moderate protein-calorie malnutrition; I10 Essential (primary) hypertension; K21.9 Gastro-esophageal reflux disease without esophagitis; I25.10 Atherosclerotic heart disease of native coronary artery without angina pectoris; J44.9 Chronic obstructive pulmonary disease, unspecified; E11.65 Type 2 diabetes mellitus with hyperglycemia; T66.XXXS Radiation sickness, unspecified, sequela; K20.8 Other esophagitis; Z68.24 Body mass index [BMI] 24.0-24.9, adult; D64.9 Anemia, unspecified

== ENCOUNTER 2017-04-23 09:58 | Inpatient (IN) | payer MEDICARE, OTHER ==
[~2017-04-23] VITALS: Ht 185.4 cm; Wt 81.6 kg
[~2017-04-23 09:58] MED LIST changes: +IPRAT-ALBUT 0.5-3 ML UPD; +LEVAQUIN500 MG PO; +PACERONE200 MG PO
[2017-04-23 10:27] LABS: BASOPHILS 0 % (0-2); EOSINOPHILS 0.1 % (0-7); HEMATOCRIT 35.6 % (42.0-54.0); IMMATURE GRANULOCYTES 1.4 % (0-5); LYMPHOCYTES 4.3 % (15-50); MCH 30.5 pg (26.0-34.0); MCHC 33.7 g/dL (31.0-37.0); MCV 90.4 fL (80.0-100.0); MEAN PLATELET VOLUME 10.1 fL (7.4-10.4); MONOCYTES 7.9 % (2-11); NEUTROPHILS 86.3 % (40-80); PLATELET COUNT 123 10x3/uL (130-400); RBC 3.94 10x6/uL (4.20-6.10); RDW 18.7 % (11.5-14.5); WBC 9.1 10x3/uL (4.8-10.8)
[2017-04-23 10:42] LABS: ALBUMIN 2.6 g/dL (3.4-5.0); ALKALINE PHOSPHATASE 52 U/L (46-116); ALT (SGPT) 32 U/L (10-68); BILIRUBIN - TOTAL 0.77 mg/dL (0.2-1.3); CALC OSMOLALITY 274 mosm/kg (275-300); CALCIUM 8.4 mg/dL (8.5-10.1); CARBON DIOXIDE 24.6 mmol/L (21.0-32.0); CHLORIDE - SERUM 99 mmol/L (98-107); CREATININE - SERUM 0.7 mg/dL (0.6-1.3); GLUCOSE 203 mg/dL (74-106); POTASSIUM - SERUM 4.5 mmol/L (3.5-5.1); SODIUM 133 mmol/L (136-145); UREA NITROGEN 20 mg/dL (7-18); eGFR NON AFRICAN AMERICAN > 90 mL/min (90-120)
[2017-04-23 10:52] LABS: CKMB 0.4 U/L (0.0-3.6)
[2017-04-23 10:53] LABS: TROPONIN-I < 0.017 ng/mL (0.000-0.060)
--- NOTE | 2017-04-23 16:10 | NUR ---
RECIEVED PT VIA WHEELCHAIR FROM ER. PT ORIENTED TO ROOM, HISTORY OBTAINED. ASSESSMENT DONE PER FLOWSHEET. BED IN LOW POSITION AND CALL LIGHT WITHIN REACH. WILL CONTINUE TO MONITOR.
[2017-04-23 17:33] VITALS: BP 113/74; BMI 23.8
[2017-04-23 20:00] VITALS: BP 117/78; BP 73/34; BP 90/50
[2017-04-24 04:00] VITALS: BP 111/68
[2017-04-24 05:33] LABS: BASOPHILS 0 % (0-2); EOSINOPHILS 0.6 % (0-7); HEMATOCRIT 35.7 % (42.0-54.0); HEMOGLOBIN 11.8 g/dL (13.5-17.5); IMMATURE GRANULOCYTES 2.2 % (0-5); LYMPHOCYTES 16.6 % (15-50); MCH 30.3 pg (26.0-34.0); MCHC 33.1 g/dL (31.0-37.0); MCV 91.5 fL (80.0-100.0); MEAN PLATELET VOLUME 10.6 fL (7.4-10.4); MONOCYTES 11.4 % (2-11); NEUTROPHILS 69.2 % (40-80); RDW 19.1 % (11.5-14.5)
[2017-04-24 05:41] LABS: PLATELET COUNT 151 10x3/uL (130-400); WBC 5.1 10x3/uL (4.8-10.8)
[2017-04-24 05:47] LABS: C-REACTIVE PROTEIN 0.9 mg/dL (0.0-0.9); CHLORIDE - SERUM 102 mmol/L (98-107); CREATININE - SERUM 0.8 mg/dL (0.6-1.3); SODIUM 137 mmol/L (136-145); eGFR NON AFRICAN AMERICAN > 90 mL/min (90-120)
[2017-04-24 05:58] LABS: CARBON DIOXIDE 24.9 mmol/L (21.0-32.0)
[2017-04-24 06:00] LABS: CALC OSMOLALITY 274 mosm/kg (275-300); GLUCOSE 114 mg/dL (74-106); UREA NITROGEN 13 mg/dL (7-18)
--- NOTE | 2017-04-24 08:30 | NUR ---
PT SITTING UP IN BED HAVING BREAKFAST, NO SIGNS OF DISTRESS, BED IN LOW POSITION, CL IN REACH, CONTINUE WITH PT CARE PLAN
[2017-04-24 08:40] VITALS: BP 114/71
--- NOTE | 2017-04-24 11:36 | NUR ---
Patient Name: ROD YEBOAH Admission Status: ER Accout number: [id number] Admission Date: 04-23-2017 : 1945 Admission Diagnosis: Attending: LULÚ, Current LOS: 1 Anticipated DC Date: 04-25-2017 Planned Disposition: Home Primary Insurance: MEDICARE A & B Discharge Planning Comments: CM MET WITH PATIENT REGARDING D/C NEEDS AND PLANS. PATIENT STATED HE LIVES WITH HIS WIVE (LEONARDO) AND SHE WILL DRIVE HIM HOME AT DISCHARGE. PATIENT STATED THERE ARE NO STEPS OR STAIRS AT HIS HOME. PATIENT IS INDEPENDENT WITH HIS CARE AND HAS A WALKER, SHOWER CHAIR, CANE, AND GLUCOMETER AT HOME IF NEEDED. PATIENTS PCP IS DR. CHINO AND PHARMACY IS [facility]. PATIENT DENIES NEEDS FOR HOME HEALTH. CM WILL CONTINUE TO FOLLOW PATIENT WITH D/C NEEDS AND PLANS. PCP DR. LULÚ [facility] ON [facility] [address]- [phone] LEONARDO () [phone] Associate Attorney: Mckayla Bell Is the patient Alert and Oriented? Yes 0 * How many steps to enter\exit or inside your home? 1 0 * PCP DR. CHINO 0 * Pharmacy [facility] 0 * Preadmission Environment Home with Family 0 * ADLs Partial Dependent 0 * Partial ADLs (Assistance needed) Medication Management 0 * Equipment Cane Glucometer Shower Chair Walker 0 * List name and contact numbers for known caregivers / representatives who currently or will assist patient after discharge: LEONARDO () [phone] 0 * Community resources currently utilized None 0 * Additional services required to return to the preadmission environment? Yes 0 * Can the patient safely return to the preadmission environment? Yes 0 * Has this patient been hospitalized within the prior 30 days at any hospital? Yes 0 Grand Total: 0
[2017-04-24 12:45] VITALS: BP 104/68
--- NOTE | 2017-04-24 13:22 | NUR ---
RESTING QUIETLY IN BED. NO NEEDS VOICED AT PRESENT.
[2017-04-24 15:08] VITALS: Ht 185.4 cm; Wt 81.6 kg
--- NOTE | 2017-04-24 19:59 | NUR ---
UP TO SHOWER WITH IN ROOM, DENIES NEEDS, BED LOWEST POSITION, CALL LIGHT IN REACH, WILL CONTINUE TO MONITOR
[2017-04-24 20:00] VITALS: BP 143/80
[2017-04-24 20:05] VITALS: BP 86/55
[2017-04-24 20:10] VITALS: BP 115/75
[2017-04-25 00:27] VITALS: BP 112/65
[2017-04-25 04:59] VITALS: BP 107/64
--- NOTE | 2017-04-25 06:00 | NUR ---
RESTING QUIETLY RESPIRATIONS WITH EASE AND UNLABORED.
--- NOTE | 2017-04-25 08:00 | NUR ---
PT SITTING UP IN BED, STATED HE IS READY TO BE DC AND SLEEP IN A MORE COMFORTABLE BED, NO COMPLAINTS VOICED, BED IN LOW POSITION, CALL LIGHT IN REACH, CONTINUE WITH PT CARE
[2017-04-25 08:25] VITALS: BP 116/69
[2017-04-25 10:49] LABS: BASOPHILS 0 % (0-2); EOSINOPHILS 0.5 % (0-7); HEMATOCRIT 31.4 % (42.0-54.0); HEMOGLOBIN 10.4 g/dL (13.5-17.5); IMMATURE GRANULOCYTES 0.7 % (0-5); MCH 30.3 pg (26.0-34.0); MCHC 33.1 g/dL (31.0-37.0); MCV 91.5 fL (80.0-100.0); MEAN PLATELET VOLUME 10.1 fL (7.4-10.4); MONOCYTES 8.4 % (2-11); NEUTROPHILS 84.4 % (40-80); PLATELET COUNT 124 10x3/uL (130-400); RBC 3.43 10x6/uL (4.20-6.10); RDW 19.3 % (11.5-14.5); WBC 5.8 10x3/uL (4.8-10.8)
[2017-04-25 11:13] LABS: ALBUMIN 2.4 g/dL (3.4-5.0); ALKALINE PHOSPHATASE 45 U/L (46-116); ALT (SGPT) 23 U/L (10-68); BILIRUBIN - TOTAL 0.57 mg/dL (0.2-1.3); CALC OSMOLALITY 272 mosm/kg (275-300); CARBON DIOXIDE 24.6 mmol/L (21.0-32.0); CHLORIDE - SERUM 103 mmol/L (98-107); CREATININE - SERUM 0.6 mg/dL (0.6-1.3); GLUCOSE 188 mg/dL (74-106); PROTEIN - SERUM 5.4 g/dL (6.4-8.2); SODIUM 135 mmol/L (136-145); UREA NITROGEN 8 mg/dL (7-18); eGFR NON AFRICAN AMERICAN > 90 mL/min (90-120)
--- NOTE | 2017-04-25 11:13 | NUR ---
WITHOUT DISTRESS.DENIES NEEDS.WANTS TO DC HOME TODAY.CALL LIGHT IN REACH
--- NOTE | 2017-04-25 14:59 | NUR ---
PT ND HOME. WAITING OUT FRONT, PT ESCORTED OUT BY WC PUSHED BY VOLUNTEER
== END 2017-04-25 14:30 | disposition home or self-care (01) | DRG 312 ==
LOC: D.ER 09:58 → D.MS 14:52 → OBSVTIME 14:52 → D.MS 14:52
PROVIDERS: Emergency Medicine; ADMIT Family Medicine
DX: I95.1 Orthostatic hypotension (principal); C34.90 Malignant neoplasm of unspecified part of unspecified bronchus or lung; E46 Unspecified protein-calorie malnutrition; B37.0 Candidal stomatitis; I10 Essential (primary) hypertension; I25.10 Atherosclerotic heart disease of native coronary artery without angina pectoris; K21.9 Gastro-esophageal reflux disease without esophagitis; E86.0 Dehydration; I07.1 Rheumatic tricuspid insufficiency; E11.65 Type 2 diabetes mellitus with hyperglycemia; Z68.23 Body mass index [BMI] 23.0-23.9, adult

== ENCOUNTER 2017-05-07 21:45 | Inpatient (IN) | payer MEDICARE, OTHER ==
[~2017-05-07] VITALS: Ht 185.4 cm; Wt 81.9 kg
--- NOTE | ~2017-05-07 | HEMODYNAMI ---
PATIENT:ROD YEBOAH MEDICAL RECORD: [id number] : 43 [id number] ADMISSION DATE: 05/07/17 Generatedon:05/11/201710:41 Patient name: ROD YEBOAH Patient #: [id number] SSN: : 1945 Date of study: 05/11/2017 Page: Of Hemodynamic Procedure Report Patient Data Patient Demographics Procedure consent was obtained First Name: ROD Gender: Male Last Name: EDILIA : 1945 [facility] Initial: E Age: 71 year(s) Patient #: [id number] Race: Unknown Additional ID: [id number] Contact details [address]: [address] [place] [address] State: [place] City: [place] Zip code: [address] Past Medical History Allergies: No known allergies Admission Admission Data Admission Date: 05/07/2017 Admission Time: 23:51 Room #: D.2214 Lab Results Lab Result Date: 05/11/2017 Lab Result Time: 4:46 Biochemistry Name Units Result Min Max BUN mg/dl 14 --(--*-)-- 7 18 Creatinine mg/dl 0.8 --(-*--)-- 0.6 1.3 CBC Name Units Result Min Max Hematocrit % 28.1 *-(----)-- 42 54 Hemoglobin g/dl 9.6 *-(----)-- 13.5 17.5 Procedure Procedure Types Cath Procedure Diagnostic Procedure LHC LHC w/Coronaries Miscellaneous Procedures Moderate Sedation up to 15 minutes Procedure Description Procedure Date Procedure Date: 05/11/2017 Procedure Start Time: 10:28 Procedure End Time: 10:40 Procedure Staff Name Function He Houston MD Performing Physician Siria Vivas RT Monitor Matthew Simpson RT Scrub Kwaku Alvarenga RN Nurse Taylor Garcia RN Nurse Procedure Data Cath Procedure Fluoroscopy Diagnostic fluoroscopy Total fluoroscopy Time: 1.9 time: 1.9 min min Diagnostic fluoroscopy Total fluoroscopy dose: dose: 108.94 mGy 108.94 mGy Contrast Material Contrast Material Type Amount (ml) Isovue 300 41 Entry Location Entry Primary Successful Side Size Upsize Upsize Entry Closure Succes sful Closure Location (Fr) 1 (Fr) 2 (Fr) Remarks Device Remarks Femoral Right 5 Fr Exoseal artery Estimated blood loss: 5 ml Diagnostic catheters Device Type Used For End Catheter Placement MULTIPACK JL 4.0 5Fr Procedure catheter MULTIPACK 3DRC 5Fr Procedure catheter MULTIPACK Pigtail 5 Fr Procedure catheter Procedure Complications No complications Procedure Medications Medication Administration Route Dosage 0.9% NaCl I.V. ml/hr Oxygen NC 2 l/min Lidocaine 2% added to field 20 Heparin Flush Bag added to field 2 bags (1000units/500ml NS) Versed I.V. 2 mg Fentanyl I.V. 25 mcg Hemodynamics Rest HGB: 9.6 (g/dl) Heart Rate: 77 (bpm) Pressure Samples Time Site Value (mmHg) Purpose Heart Use Rate(bpm) 10:36 LV 153/-10,15 EDP 81 10:37 AO 148/88(115) Pullback 88 10:37 LV 147/-1,12 Pullback 88 Gradients Valve Time Site 1 Site 2 Mean SEP/DFP Peak To Heart Use (mmHg) (sec/min) Peak Rate (mmHg) (bpm) Aortic 10:37 LV AO 0 18 0 88 147/-1,12 148/88(115) Calculations Valve P-P Mean Valve Index Valve Source Name Gradient Area Flow (cm2) Aortic 0 0 0 0 Snapshots Pre Cath Intra NCS Post Cath Vital Signs Time Heart Resp SPO2 etCO2 NIBP (mmHg) Rhythm Pain Sedation Rate (ipm) (%) (mmHg) Status Level (bpm) 10:14:57 89 16 98 28.6 168/97(130) NSR 0 (11) 10(A) , No pain 10:19:14 86 17 98 20.3 141/90(124) NSR 0 (11) 10(A) , No pain 10:23:26 87 14 99 16.5 134/93(117) NSR 0 (11) 10(A) , No pain 10:27:37 89 14 98 16.5 133/84(104) NSR 0 (11) 10(A) , No pain 10:31:47 86 16 95 15.8 128/86(114) NSR 0 (11) 9(A) , No pain 10:35:57 83 18 98 10.5 131/83(114) NSR 0 (11) 10(A) , No pain 10:40:11 86 11 96 25.6 130/86(108) NSR 0 (11) 10(A) , No pain Medications Time Medication Route Dose Verified Delivered Reason Notes Effe ctiveness by by 10:14:04 0.9% NaCl I.V. ml/hr He Taylor used for Rosemarie Garcia RN procedure MD 10:14:14 Oxygen NC 2 He Taylor Per l/min Rosemarie Garcia RN physician 10:14:42 Lidocaine 2% added 20ml He He for local to vial Rosemarie Houston MD anesthetic field 10:14:53 Heparin Flush added 2 He He used for Bag to bags Rosemarie Houston MD procedure (1000units/500ml field DAVIES NS) 10:31:04 Versed I.V. 2 mg He Buffie for Rosemarie Alvarenga RN sedation 10:31:15 Fentanyl I.V. 25 Eh Buffie for mcg Rosemarie Alvarenga RN sedation Procedure Log Time Note 9:49:02 Kwaku Alvarenga RN sent for patient. Start room use. 9:49:03 Time tracking: Regular hours 9:49:06 Plan of Care:Hemodynamics will remain stable., Cardiac rhythm will remain stable., Comfort level will be maintained., Respiratory function will remain adequate., Patient/ family verbilizes understanding of procedure., Procedure tolerated without complication., Recovers from procedure without complications.. 10:02:30 Patient received from Med/Surg to CCL 3 Alert and oriented. Tansferred to table in Supine position. 10:02:31 Warm blankets applied, and jose hugger turned on for patient comfort. 10:02:31 Correct patient and procedure confirmed by team. 10:02:32 Signed procedure consent form obtained from patient. 10:02:33 ECG and BP/O2 sat monitors applied to patient. 10:02:37 Full Disclosure recording started 10:13:53 Vital chart was started 10:14:04 0.9% NaCl ml/hr I.V. was administered by Taylor Garcia RN; used for procedure; 10:14:14 Oxygen 2 l/min NC was administered by Taylor Garcia RN; Per physician; 10:14:42 Lidocaine 2% 20ml vial added to field was administered by He Houston MD; for local anesthetic; 10:14:53 Heparin Flush Bag (1000units/500ml NS) 2 bags added to field was administered by He Houston MD; used for procedure; 10:17:26 Rhythm: sinus rhythm 10:19:08 Baseline sample Acquired. 10:23:31 H&P Date Dictated: 05/11/2017 Within 30 days and on chart.. 10:23:33 Pre-procedure instructions explained to patient. 10:23:33 Pre-op teaching completed and patient verbalized understanding. 10:23:35 Family in patients room. 10:23:36 Patient NPO since Midnight. 10:23:42 Patient allergic to No known allergies 10:23:44 Is the patient allergic to Iodine/contrast media? No. 10:23:45 Is patient on blood thinner?Yes 10:23:46 ACC The patient was administered the following blood thiners within the last 24 hours: ACCPlavix 10:23:57 Patient diabetic? Yes. 10:23:58 If diabetic: On Metformin? Yes 10:24:01 If on Metformin: Last Dose? 05/07/2017 10:24:04 Previous problem with sedation/anesthesia? No ? 10:24:04 Snore? Yes 10:24:08 Sleep apnea? No 10:24:09 Deviated septum? No 10:24:10 Opens mouth fully? Yes 10:24:11 Sticks out tongue? Yes 10:24:18 Airway obstruction? Yes Lung cancer 10:24:22 Dentures? Yes in tight 10:24:26 Pre procedure: right dorsailis pedis pulse 1+ Palpable, but thready & weak; easily obliterated 10:24:29 Patient pain scale 0/10 ?. 10:24:40 IV patent on arrival in left antecubital with 0.9% NaCl at O. 10:25:10 Lab Result : BUN 14 mg/dl 10:25:10 Lab Result : Hemoglobin 9.6 g/dl 10:25:10 Lab Result : Creatinine 0.8 mg/dl 10:25:10 Lab Result : Hematocrit 28.1 % 10:25:13 Lab results completed and on chart. 10:25:18 Right groin area was prepped with chlora-prep and draped in sterile fashion 10:25:20 Alarms reviewed by R. N. 10:25:20 Sharps counted by scrub and verified by R.N. 10:25:24 Use device set Femoral Dx 10:25:26 ACIST Syringe (26944) opened to sterile field. 10:25:27 Medline Cath Pack ([id number]) opened to sterile field. 10:25:29 Bag Decanter (2002S) opened to sterile field. 10:25:29 ACIST Hand Control (50184) opened to sterile field. 10:25:30 ACIST Manifold (70982) opened to sterile field. 10:25:32 Tegaderm 4 x 4 (1626W) opened to sterile field. 10:25:34 DIAGNOSTIC WIRE .035 260cm J wire (356702) opened to sterile field. 10:25:35 SHEATH 5FR [place] (BGK393) opened to sterile field. 10:25:36 DIAGNOSTIC Multipack 5Fr catheter set ([id number]) opened to sterile field. 10:25:39 MICROPUNCTURE 4FR Cook ([id number]) opened to sterile field. 10:25:48 Physician arrived 10::49 --------ALL STOP TIME OUT------ 10::49 Final Timeout: patient, procedure, and site verified with staff and physician. All members of the team are in agreement. 10:25:50 Right groin site verified by team. 10:25:53 Physical assessment completed. ASA score P 2 - A patient with mild systemic disease as per He Houston MD. 10:26:01 Sedation plan: IV Moderate Sedation Medication:Versed, Fentanyl 10:28:22 Procedure started. 10:28:31 Local anesthetic to right femoral artery with Lidocaine 2% by He Houston MD.INITIAL ACCESS ONLY 10::32 Access obtained with 4Fr micropunture. 10::53 Zero performed for pressure channel P1 10:29:57 Zero performed for pressure channel P1 10:30:03 Zero performed for pressure channel P1 10:30:10 Zero performed for pressure channel P1 10:31:04 Versed 2 mg I.V. was administered by Kwaku Alvarenga RN; for sedation; 10:31:15 Fentanyl 25 mcg I.V. was administered by Kwaku Alvarenga RN; for sedation; 10:32:32 A 5 Fr sheath was inserted into the Right Femoral artery 10:32:38 A MULTIPACK JL 4.0 5Fr catheter was advanced over the wire and used for Procedure. 10:32:41 LCA angiography performed. 10:32:46 Catheter exchanged over wire. 10:32:52 A MULTIPACK 3DRC 5Fr catheter was advanced over the wire and used for Procedure. 10:34:28 RCA angiography performed. 10:34:46 Catheter exchanged over wire. 10:34:52 A MULTIPACK Pigtail 5 Fr catheter was advanced over the wire and used for Procedure. 10:36:29 LV gram done using KHAN 10:36:32 Injector settings: Ml/sec: 12, Volume: 8, 10:36:35 LV hemodynamics recorded. 10:37:18 EF : 55 % 10:37:21 EXOSEAL 5Fr (EX500) opened to sterile field. 10:37:25 Catheter removed. 10:37:34 Sheath removed intact; hemostasis achieved with Exoseal to the Right Femoral artery. 10:37:36 Procedure ended.(Physican Out) 10:37:46 Fluoroscopy time 01.90 minutes. 10:37:51 Fluoroscopy dose: 108.94 mGy 10:37:51 Flurop Dose total: 108.94 10:37:58 Contrast amount:Isovue 300 41ml. 10:37:59 Sharps counted by scrub and verified by R.N. 10:38:00 Insertion/operative site no bleeding no hematoma. 10:38:02 Post-op/insertion site Right Femoral artery dressed using a 4 x 4 and Tegaderm. 10:38:05 Post right femoral artery:stable, soft, clean and dry 10:38:06 Post Procedure Pulses reassessed and unchanged 10:38:08 Post-procedure physical assessment completed. ASA score P 2 - A patient with mild systemic disease as per He Houston MD. 10:38:10 Post procedure rhythm: unchanged. 10:38:12 Estimated blood loss: 5 ml 10:38:13 Post procedure instruction explained to patient.Patient verbalizes understanding. 10:38:13 Patient needs reinforcement of post procedure teaching. 10:38:21 Procedure type changed to Cath procedure, Diagnostic procedure, LHC, LHC w/Coronaries, Miscellaneous Procedures, Moderate Sedation up to 15 minutes 10:40:21 IV Extension Set opened to sterile field. 10:40:34 Procedure and supply charges have been captured, reviewed, submitted and are correct. 10:40:37 Procedure Complication : No complications 10:40:41 Vital chart was stopped 10:40:41 See physician's report for complete and final results. 10:40:43 Report given to Pre/Post Procedure Room. 10:40:45 Patient transfered to Pre/Post Procedure Room with Stretcher. 10:40:47 Procedure ended. 10:40:47 Full Disclosure recording stopped 10:40:58 End room use (Document Last) Device Usage Item Name Manufacture Quantity Catalog Hospital Part Current Minimal Lot# / Number Charge Number Stock Stock Serial# Code ACIST Syringe Acist 1 08188 542341 662841 341450 20 (83557) Medical Systems Inc Medline Cath Cardinal 1 [id number] 285724 73338 689221 5 Pack Health ([id number]) Bag Decanter Microtek 1 2001S 822479 15331 608063 5 (2001S) Medical Inc. ACIST Hand Acist 1 44304 476929 761991 091115 5 Control Medical (85870) Systems Inc ACIST Acist 1 32386 756062 218949 179653 5 Manifold Medical (34059) Systems Inc Tegaderm 4 x 3M 1 1626W 262418 217960 482077 5 4 (1626W) DIAGNOSTIC St Sean 1 789523 948749 089131 343514 30 WIRE .035 260cm J wire (332864) SHEATH 5FR Terumo 1 JOQ589 957895 481460 937357 40 [place] (LBS431) DIAGNOSTIC Cardinal 1 NC9395 207357 71819 376534 30 Multipack 5Fr Health catheter set ([id number]) MICROPUNCTURE Cook Medical 1 E35679 977424 534233 992657 5 4FR Cook (R39029) MULTIPACK JL Cardinal 1 853323 5 4.0 5Fr Health catheter MULTIPACK Cardinal 1 213553 5 3DRC 5Fr Health catheter MULTIPACK Cardinal 1 331574 5 Pigtail 5 Fr Health catheter EXOSEAL 5Fr Cardinal 1 EX500 100741 939621 688100 10 (EX500) Health IV Extension Hospira 1 168039 43770 173535 5 Set Signature Audit [place] Stage Time Signature Unsigned Intra-Procedure 05/11/2017 Matthew Simpson 10:41:16 AM RT(R) Signatures Monitor : Siria Signature : Counts RT Date : Time : [place] [address] [place] [address]
[2017-05-07 22:36] LABS: BASOPHILS 0 % (0-2); EOSINOPHILS 3.3 % (0-7); HEMATOCRIT 32.7 % (42.0-54.0); HEMOGLOBIN 11.3 g/dL (13.5-17.5); IMMATURE GRANULOCYTES 0.9 % (0-5); LYMPHOCYTES 16.9 % (15-50); MCH 30.9 pg (26.0-34.0); MCHC 34.6 g/dL (31.0-37.0); MCV 89.3 fL (80.0-100.0); MEAN PLATELET VOLUME 10.5 fL (7.4-10.4); MONOCYTES 3.3 % (2-11); NEUTROPHILS 75.6 % (40-80); RBC 3.66 10x6/uL (4.20-6.10); RDW 17.2 % (11.5-14.5); WBC 3.3 10x3/uL (4.8-10.8)
[2017-05-07 22:37] LABS: PLATELET COUNT 190 10x3/uL (130-400)
[2017-05-07 23:03] LABS: ALBUMIN 2.4 g/dL (3.4-5.0); ALKALINE PHOSPHATASE 67 U/L (46-116); ALT (SGPT) 22 U/L (10-68); BILIRUBIN - TOTAL 0.52 mg/dL (0.2-1.3); CALC OSMOLALITY 269 mosm/kg (275-300); CALCIUM 8.3 mg/dL (8.5-10.1); CARBON DIOXIDE 25.7 mmol/L (21.0-32.0); CHLORIDE - SERUM 97 mmol/L (98-107); CREATININE - SERUM 0.7 mg/dL (0.6-1.3); GLUCOSE 212 mg/dL (74-106); PROTEIN - SERUM 6.3 g/dL (6.4-8.2); SODIUM 132 mmol/L (136-145); UREA NITROGEN 11 mg/dL (7-18); eGFR NON AFRICAN AMERICAN > 90 mL/min (90-120)
[2017-05-07 23:14] LABS: AMYLASE - SERUM 34 U/L (25-115); LIPASE 76 U/L (73-393); PRO BNP 130 pg/mL (0-125)
[2017-05-07 23:19] LABS: TROPONIN-I < 0.017 ng/mL (0.000-0.060)
[2017-05-08 04:00] VITALS: BP 90/61
[2017-05-08 05:22] VITALS: BP 95/59; BMI 23.8
--- NOTE | 2017-05-08 07:30 | NUR ---
REPORT RECEIVED FROM [facility]ENTER TECHNICIAN NURSE. CALL LIGHT IN REACH.
--- NOTE | 2017-05-08 08:25 | NUR ---
ASSESSMENT COMPLETED. CALL LIGHT IN REACH. WILL CONTINUE WITH PLAN OF CARE.
[2017-05-08 09:00] VITALS: BP 97/66
[2017-05-08 09:55] LABS: BASOPHILS 0.3 % (0-2); HEMATOCRIT 33.5 % (42.0-54.0); HEMOGLOBIN 11.2 g/dL (13.5-17.5); IMMATURE GRANULOCYTES 0.6 % (0-5); LYMPHOCYTES 19.9 % (15-50); MCH 30.4 pg (26.0-34.0); MCHC 33.4 g/dL (31.0-37.0); MEAN PLATELET VOLUME 10.3 fL (7.4-10.4); MONOCYTES 5.8 % (2-11); NEUTROPHILS 68.4 % (40-80); PLATELET COUNT 176 10x3/uL (130-400); RBC 3.68 10x6/uL (4.20-6.10); RDW 17.2 % (11.5-14.5); WBC 3.6 10x3/uL (4.8-10.8)
--- NOTE | 2017-05-08 10:16 | NUR ---
NO NEEDS VOICED AT THIS TIME. CALL LIGHT IN REACH.
[2017-05-08 12:25] VITALS: BP 101/65
--- NOTE | 2017-05-08 12:40 | NUR ---
AM MEDS ADMINISTERED. FSBS 126. NO COVERAGE REQUIRED. CALL LIGHT IN REACH.
[2017-05-08 13:07] VITALS: BMI 23.7
--- NOTE | 2017-05-08 14:45 | NUR ---
LYING IN BED. NO NEEDS VOICED. CALL LIGHT IN REACH.
--- NOTE | 2017-05-08 15:58 | NUR ---
MEDS ADMINISTERED PER ORDER. CALL LIGHT IN REACH.
[2017-05-08 16:15] VITALS: BP 107/66
[2017-05-08 16:22] VITALS: Ht 185.4 cm; Wt 81.9 kg
--- NOTE | 2017-05-08 16:57 | NUR ---
OT NOTE: PT COMPLETED BUE AROM EXS FOR INCREASED AX TOLERANCE. PT COMPLETED GROOMING TASK WITH SET UP. THANK YOU, TOMMY MARROQUIN/Krista
--- NOTE | 2017-05-08 17:07 | NUR ---
4 UNITS HUMALOG SUBQ FOR BS OF 215. CALL LIGHT IN REACH.
--- NOTE | 2017-05-08 18:14 | NUR ---
UA COLLECTED. SPUTUM CUP GIVEN TO PATIENT. IN ROOM. STILL REFUSES SCDs. CALL LIGHT IN REACH. WILL CONTINUE WITH PLAN OF CARE.
--- NOTE | 2017-05-08 19:30 | NUR ---
RECIEVED SHIFT REPORT. PT IS LYING IN BED. ALERT AND ORIENTED AND ABLE TO VERBALIZE NEEDS. IV IS PATENT AND SALINE LOC AT THIS TIME. O2 @ 2 PER NASAL CANNULA. PT IS AMBULATORY BUT WAS INSTRUCTED TO CALL FOR ANY ASSISTANCE NEEDED. PT DENIES ANY PAIN AT THIS TIME. PT REFUSES SCD'S. NO NEEDS ARE VERBALIZED AT THIS TIME. WILL CONTINUE TO MONITOR. SIDE RAILS ARE UP X 2. BED IS IN LOWEST POSITION. CALL LIGHT IS WITHIN REACH.
[2017-05-08 19:43] LABS: APPEARANCE CLEAR (CLEAR); BILIRUBIN NEGATIVE (NEGATIVE); COLOR YELLOW (YELLOW); GLUCOSE 250 mg/dL (NEGATIVE); KETONE NEGATIVE (NEGATIVE); NITRITE NEGATIVE (NEGATIVE); PROTEIN NEGATIVE (NEGATIVE); SPECIFIC GRAVITY 1.015 (1.005-1.020); UROBILINOGEN NORMAL (NORMAL)
[2017-05-08 20:00] VITALS: BP 101/63
--- NOTE | 2017-05-08 20:41 | NUR ---
SHIFT ASSESSMENT COMPLETED. NIGHT MEDS GIVEN WITH NO PROBLEMS. PT RECIEVED 8 UNITS INSULIN PER SLIDING SCALE FOR EUZZ=644. NO NEEDS ARE VOICED. WILL MONITOR. SIDE RAILS X 2. BED LOW. CALL LIGHT IN REACH.
[2017-05-09 06:19] LABS: BASOPHILS 0 % (0-2); EOSINOPHILS 0 % (0-7); HEMATOCRIT 31.7 % (42.0-54.0); HEMOGLOBIN 11.1 g/dL (13.5-17.5); LYMPHOCYTES 14.2 % (15-50); MEAN PLATELET VOLUME 10.2 fL (7.4-10.4); MONOCYTES 1.9 % (2-11); NEUTROPHILS 82.9 % (40-80); PLATELET COUNT 180 10x3/uL (130-400); RBC 3.58 10x6/uL (4.20-6.10); WBC 3.1 10x3/uL (4.8-10.8)
[2017-05-09 06:30] LABS: MCV 88.5 fL (80.0-100.0)
[2017-05-09 06:40] LABS: ALBUMIN 2.4 g/dL (3.4-5.0); ALKALINE PHOSPHATASE 87 U/L (46-116); BILIRUBIN - TOTAL 0.45 mg/dL (0.2-1.3); CALC OSMOLALITY 277 mosm/kg (275-300); CALCIUM 8.6 mg/dL (8.5-10.1); CARBON DIOXIDE 23.9 mmol/L (21.0-32.0); CHLORIDE - SERUM 100 mmol/L (98-107); CREATININE - SERUM 0.7 mg/dL (0.6-1.3); GLUCOSE 257 mg/dL (74-106); POTASSIUM - SERUM 4.3 mmol/L (3.5-5.1); PROTEIN - SERUM 6.6 g/dL (6.4-8.2); SODIUM 135 mmol/L (136-145); UREA NITROGEN 10 mg/dL (7-18); eGFR NON AFRICAN AMERICAN > 90 mL/min (90-120)
[2017-05-09 07:01] LABS: ALT (SGPT) 30 U/L (10-68)
[2017-05-09 09:36] VITALS: BP 136/64
[2017-05-09 13:21] VITALS: BP 119/68
--- NOTE | 2017-05-09 14:21 | NUR ---
OT NOTE: PT AMB IN ROOM TO BATHROOM WITHOUT DIFFICULTY; RETURNS SOB; PT REPORTED THAT HE AMBULATED WITH PHYS THERAPY AROUND NURSES DESK AND DID WELL. CONT WITH ADLS AND EXS TO IMPROVE FUNCTIONAL ENDURANCE. JENNIFER VELASQUEZ, OTR/L
[2017-05-09 17:05] VITALS: BP 120/65
--- NOTE | 2017-05-09 18:54 | NUR ---
CONTACT ISOLATION PRECAUTIONS INITIATED FOR POSITIVE BLOOD CULTURES.
--- NOTE | 2017-05-09 19:50 | NUR ---
RECIEVED SHIFT REPORT. PT IS LYING IN BED. ALERT AND ORIENTED AND ABLE TO VERBALIZE NEEDS. IV IS PATENT AND SALINE LOC AT THIS TIME. O2 @ 2 PER NASAL CANNULA. PT DENIES ANY PAIN AT THIS TIME. PT IS AMBULATORY BUT WAS INSTRUCTED TO CALL FOR ANY ASSISTANCE NEEDED. ISOLATION PRECAUTIONS ARE IN PLACE. NO NEEDS ARE VERBALIZED AT THIS TIME. WILL CONTINUE TO MONITOR. SIDE RAILS ARE UP X 2. BED IS IN LOWEST POSITION. CALL LIGHT IS WITHIN REACH.
[2017-05-09 20:00] VITALS: BP 100/58
--- NOTE | 2017-05-09 20:49 | NUR ---
OT NOTE: PT COMPLETED BATHING WITH SBA/SPV. PT COMPLETED DRESSING AT EOB WITH SPV. PT COMPLETED DYNAMIC SITTING/STANDING AXS WITH SBA/SPV. THANK YOU, TOMMY MARROQUIN/Krista
--- NOTE | 2017-05-09 22:48 | NUR ---
SHIFT ASSESSMENT COMPLETED. NIGHT MEDS GIVEN WITH NO PROBLEMS. PT RECIEVED 16 UNITS INSULIN PER SLIDING SCALE FOR LPGO=164. NO NEEDS ARE VOICED. WILL MONITOR. SIDE RAILS X 2. BED LOW. CALL LIGHT IN REACH.
[2017-05-10] VITALS: BP 99/64
[2017-05-10 04:00] VITALS: BP 114/67
[2017-05-10 05:43] LABS: BASOPHILS 0 % (0-2); EOSINOPHILS 0 % (0-7); HEMATOCRIT 28.9 % (42.0-54.0); HEMOGLOBIN 9.9 g/dL (13.5-17.5); IMMATURE GRANULOCYTES 0.6 % (0-5); LYMPHOCYTES 4.3 % (15-50); MCH 30.5 pg (26.0-34.0); MCHC 34.3 g/dL (31.0-37.0); MCV 88.9 fL (80.0-100.0); MEAN PLATELET VOLUME 10.1 fL (7.4-10.4); NEUTROPHILS 90.1 % (40-80); PLATELET COUNT 206 10x3/uL (130-400); RBC 3.25 10x6/uL (4.20-6.10); RDW 17.3 % (11.5-14.5); WBC 5.2 10x3/uL (4.8-10.8)
[2017-05-10 06:35] LABS: ALBUMIN 2.3 g/dL (3.4-5.0); ALKALINE PHOSPHATASE 75 U/L (46-116); ALT (SGPT) 35 U/L (10-68); CALC OSMOLALITY 280 mosm/kg (275-300); CARBON DIOXIDE 24.1 mmol/L (21.0-32.0); CHLORIDE - SERUM 102 mmol/L (98-107); CREATININE - SERUM 0.7 mg/dL (0.6-1.3); GLUCOSE 253 mg/dL (74-106); POTASSIUM - SERUM 4.1 mmol/L (3.5-5.1); PROTEIN - SERUM 6.1 g/dL (6.4-8.2); SODIUM 136 mmol/L (136-145); UREA NITROGEN 12 mg/dL (7-18); eGFR NON AFRICAN AMERICAN > 90 mL/min (90-120)
--- NOTE | 2017-05-10 08:00 | NUR ---
LYING IN BED,WITHOUT DISTRESS. AT BEDSIDE.ISOLATION
--- NOTE | 2017-05-10 08:30 | NUR ---
PT SITTING UP IN BED, STATED LAST NIGHT GOT REAL SHORT OF BREATH WHEN UP TO RESTROOM AND SINK, STATED FEELS LIKE CONDITION IS WORSENING, FIRST TIME TO HAVE PT SINCE ADMITTED, ADVISED WILL REVIEW CHART BUT IN THE MEANTIME ENCOURAGED PT TO USE CL WHEN NEEDING TO GET UP OR USE URINAL FOR NOW, PT REQUESTED COFFEE. NO SIGNS OF DISTRESS, CL IN REACH BED IN LOW POSITION
[2017-05-10 08:48] VITALS: BP 115/74
--- NOTE | 2017-05-10 09:30 | NUR ---
PT SPOUSE AT BEDSIDE, VOICED FRUSTRATIONS WITH CARE TEAM AND FEELS LIKE THE DOCTORS ARE NOT COMMUNICATING WITH EACH OTHER, SHE CALLED DR CHINO'S OFFICE WELL DR MARCANO'S OFFICE. ASSURED HER THAT THE DOCTORS DO COMMUNICATE WITH EACH OTHER AND ALL NOTES AND REPORTS AND RESULTS ARE UPLOADED FOR EVERYONE TO READ AND DISCUSS WITH EACH OTHER, ENCOURAGED PT AND SPOUSE TO VOICE CONCERNS TO DOCTORS THEY MAKE THEIR ROUNDS. BED IN LOW POSITION, CL IN REACH
--- NOTE | 2017-05-10 10:41 | NUR ---
Patient Name: ROD YEBOAH Admission Status: ER Accout number: [id number] Admission Date: 05-07-2017 : 1945 Admission Diagnosis:PNEUMONIA, UNSPECIFIED ORGANISM Attending: MINA JASSO Current LOS: 3 Anticipated DC Date: Planned Disposition: Home Primary Insurance: MEDICARE A & B Discharge Planning Comments: CM met with patient to assess discharge planning needs. This is the patient 's 3 rd admission in the last 2 months. Patient lives independently with his Lesly where he plans to return. 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 Patient stated that House calls has came to his house 1 time. Patient has a cane, walker, shower chair, nebulizer at home. Him and his are saying that they do not need home health. CM will continue to follow and assist with discharge planning needs. PCP: Mariano Rosario on [address] [facility] [place] () [phone] Bar Roller: Noris Sanchez * Is the patient Alert and Oriented? Yes 0 * How many steps to enter\exit or inside your home? 1 0 * PCP Mariano 0 * Pharmacy [facility] 0 * Preadmission Environment Home with Family 0 * ADLs Independent 0 * Equipment Cane Nebulizer Rolling Walker Shower Chair Walker 0 * List name and contact numbers for known caregivers / representatives who currently or will assist patient after discharge: Lesly () [phone] * Community resources currently utilized None 0 * Additional services required to return to the preadmission environment? No 0 * Can the patient safely return to the preadmission environment? Yes 0 * Has this patient been hospitalized within the prior 30 days at any hospital? No 0 Grand Total: 0
[2017-05-10 12:33] VITALS: BP 101/62
--- NOTE | 2017-05-10 13:20 | NUR ---
NUTRITION F/U CHART REVIEWED. PT NOW IN ISOLATION. REG DIET WITH GOOD INTAKE RECENT MEALS. NOTE POSSIBLE PROCEDURE IN AM. WILL CONTINUE TO PROVIDE DIET, HONOR FOOD PREFERENCES. RD FOLLOWING
--- NOTE | 2017-05-10 14:35 | NUR ---
OT NOTE: PT PERFORMED BED MOB WITH SPV; EDGE OF BED SITTING INDEPENDENTLY; AMB TO BATHROOM WITH CGA; SOB FOLLOWING TOILETING. JENNIFER VELASQUEZ, OTR/L
[2017-05-10 15:55] VITALS: BP 108/61
--- NOTE | 2017-05-10 17:35 | NUR ---
OT NOTE: PT COMPLETED BED MOB WITH REST BREAKS. PT COMPLETED BUE AROM EXS FOR INCREASED AX HERNANDEZ. THANK YOU, TOMMY MARROQUIN/Krista
[2017-05-10 20:00] VITALS: BP 108/64
[2017-05-11 04:00] VITALS: BP 128/78
[2017-05-11 04:54] LABS: BASOPHILS 0 % (0-2); EOSINOPHILS 0 % (0-7); HEMATOCRIT 28.1 % (42.0-54.0); HEMOGLOBIN 9.6 g/dL (13.5-17.5); IMMATURE GRANULOCYTES 0.4 % (0-5); LYMPHOCYTES 4.3 % (15-50); MCH 30.7 pg (26.0-34.0); MCHC 34.2 g/dL (31.0-37.0); MCV 89.8 fL (80.0-100.0); MONOCYTES 8.4 % (2-11); NEUTROPHILS 86.9 % (40-80); PLATELET COUNT 230 10x3/uL (130-400); RBC 3.13 10x6/uL (4.20-6.10); RDW 17.7 % (11.5-14.5); WBC 4.9 10x3/uL (4.8-10.8)
[2017-05-11 05:16] LABS: ALBUMIN 2.2 g/dL (3.4-5.0); ALKALINE PHOSPHATASE 67 U/L (46-116); ALT (SGPT) 43 U/L (10-68); CALC OSMOLALITY 282 mosm/kg (275-300); CALCIUM 8.6 mg/dL (8.5-10.1); CARBON DIOXIDE 25.3 mmol/L (21.0-32.0); CHLORIDE - SERUM 103 mmol/L (98-107); CREATININE - SERUM 0.8 mg/dL (0.6-1.3); GLUCOSE 174 mg/dL (74-106); POTASSIUM - SERUM 3.9 mmol/L (3.5-5.1); PROTEIN - SERUM 5.7 g/dL (6.4-8.2); SODIUM 139 mmol/L (136-145); UREA NITROGEN 14 mg/dL (7-18); eGFR NON AFRICAN AMERICAN > 90 mL/min (90-120)
--- NOTE | 2017-05-11 07:00 | NUR ---
REPORT RECIEVED ASSUMED CARE. PATIENT IN BED WITH IV INTACT. NO COMPLAINTS. CALL LIGHT WITHIN REACH. AWAITING GRADES 1 THRU 6 HOME TEACHER FOR PROCEDURE. CALLED TO PREOP AT THIS TIME.
--- NOTE | 2017-05-11 07:45 | NUR ---
PATIENT RECIEVED PREOP MEDS. CALL LIGHT WITHIN REACH.
[2017-05-11 08:08] VITALS: BP 132/82
--- NOTE | 2017-05-11 10:15 | NUR ---
PATIENT TO GAS PRODUCER.
--- NOTE | 2017-05-11 11:51 | NUR ---
1125 LYING FLAT, 2L NC APPLIED WHILE SLEEPING. ALL VITALS WNL. R GROIN 5F EXOSEAL C/D/I W NO HEMATOMA OR BLEEDING. DENIES NEEDS AT THIS TIME.
--- NOTE | 2017-05-11 12:49 | NUR ---
1200 LYING FLAT, ROOM AIR WITH NO RESP DISTRESS. NSR RATE 86 WNO C/O CHEST PAIN. PULSES PALP X 4 WITH BRISK CAP REFILL. R GROIN REMAINS C/D/I W NO HEMATOMA OR BLEEDING.
--- NOTE | 2017-05-11 13:10 | NUR ---
REPORT CALLED TO REAGAN JORDAN RN. PATIENT TRANSFERRED TO 2114 VIA BED. R GROIN REMAINS C/D/I W NO HEMATOMA OR BLEEDING. ALL VITALS WNL. TRANSPORTED BY [facility].
--- NOTE | 2017-05-11 13:18 | NUR ---
TRANSFERED FROM QUALITY CONTROL OPERATOR BY BED. BED REST UP. GROIN STABLE.
--- NOTE | 2017-05-11 14:00 | NUR ---
UP AMBULATING WITH PT ASSIST.
[2017-05-11 21:10] VITALS: BP 94/64
--- NOTE | 2017-05-11 22:27 | NUR ---
INITIAL ROUNDS COMPLETED AT 1955 HRS. VSS. SR PER CM HR 98. IV TO LAC SL. LUNGS DIMINISHED IN BASES BILAT. R GROIN CLEAN, DRY AND INTACT WITHOUT SWELLING, BLEEDING OR BRUISING. PALPABLE PEDAL PULSES. 1999 FSBS 221. 12 U NITS HUMALOG GIVNE SUB-Q PER S/S. IV TO LAC LEAKING. DC'D WITH CATHETER INTACT. PM MEDS GIVEN. NEW IV STARTED #22 TO INNER L WRIST WITH ATTEMPT X2. PT TOLERATED WELL. PT CURRENTLY RESTING WITH EYES CLOSED. RESP EVEN AND REGULAR. SR UP X2, CALL LIGHT WITHIN REACH.
--- NOTE | 2017-05-12 00:07 | NUR ---
FSBS 185. 8 UNITS HUMALOG GIVEN SUB-Q TO UPPER L ARM. SCHEDULED ANTIBIOTIC GIVEN SIVP. WILL CONTINUE TO MONITOR. SR UP X2, CALL LIGHT WITHIN REACH.
[2017-05-12 00:10] VITALS: BP 120/74
--- NOTE | 2017-05-12 02:28 | NUR ---
PT AWAKE; DENIES ANY DISCOMFORT. WILL CONTINUE TO MONITOR.
--- NOTE | 2017-05-12 04:28 | NUR ---
0400 FSBS 142. NO COVERGAE NEEDED. WILL CONTINUE TO MONITOR.
[2017-05-12 05:21] VITALS: BP 112/70
--- NOTE | 2017-05-12 06:29 | NUR ---
VSS THROUGHOUT NIGHT. SR PER CM. PT DENIED ANY DISCOMFORT. NEEDS MET; WILL CONTINUE TO MONITOR.
[2017-05-12 07:00] LABS: BASOPHILS 0 % (0-2); EOSINOPHILS 0 % (0-7); HEMOGLOBIN 9.2 g/dL (13.5-17.5); IMMATURE GRANULOCYTES 0.9 % (0-5); LYMPHOCYTES 14.3 % (15-50); MCH 29.8 pg (26.0-34.0); MCHC 32.9 g/dL (31.0-37.0); MCV 90.6 fL (80.0-100.0); MEAN PLATELET VOLUME 9.8 fL (7.4-10.4); MONOCYTES 12.9 % (2-11); NEUTROPHILS 71.9 % (40-80); PLATELET COUNT 216 10x3/uL (130-400); RBC 3.09 10x6/uL (4.20-6.10); RDW 17.8 % (11.5-14.5)
[2017-05-12 07:01] LABS: WBC 3.4 10x3/uL (4.8-10.8)
[2017-05-12 07:17] LABS: ALBUMIN 2.3 g/dL (3.4-5.0); ALKALINE PHOSPHATASE 63 U/L (46-116); ALT (SGPT) 35 U/L (10-68); BILIRUBIN - TOTAL 0.28 mg/dL (0.2-1.3); CALC OSMOLALITY 282 mosm/kg (275-300); CALCIUM 8.4 mg/dL (8.5-10.1); CARBON DIOXIDE 27.7 mmol/L (21.0-32.0); CHLORIDE - SERUM 104 mmol/L (98-107); CREATININE - SERUM 0.8 mg/dL (0.6-1.3); GLUCOSE 158 mg/dL (74-106); POTASSIUM - SERUM 3.8 mmol/L (3.5-5.1); PROTEIN - SERUM 5.1 g/dL (6.4-8.2); SODIUM 140 mmol/L (136-145); UREA NITROGEN 14 mg/dL (7-18); eGFR NON AFRICAN AMERICAN > 90 mL/min (90-120)
[2017-05-12 08:04] VITALS: BP 123/75
[2017-05-12 12:17] VITALS: BP 133/79
[2017-05-12 15:29] VITALS: BP 114/71
--- NOTE | 2017-05-12 16:12 | NUR ---
IV RESTARTED TO RIGHT WRIST WITH 22 GAUGE CATH X 3 STICKS AND FLUSHED WITH NS. LINE IS PATENT.
[2017-05-12 20:00] VITALS: BP 139/89
--- NOTE | 2017-05-12 22:25 | NUR ---
INITIAL ROUNDS CMPLETED AT 1910 HRS. PT DENIED ANY DISCOMFORT. ASSESSMENT COMPLETED AT 1930 HRS VSS. SR PER CM HR 86. IV TO R WRIST SL. LUNGS DIMINISHED IN BASES BILAT. BRUISES NOTED TO BILAT ARMS. PM FSBS 265. 16 UNITS HUMALOG GIVEN SUB-Q TO UPPER L ARM PER S/S. PM MEDS GIVEN. PM SNACK SERVED. PT CURRENTLY RESTING WITH EYES CLOSED. RESP EVEN AND REGULAR. SR UP X2,CALL LIGHT WITHIN REACH.
--- NOTE | 2017-05-13 00:09 | NUR ---
PT AWAKE; DENIES ANY DISCOMFORT. WILL CONTINUE TO MONITOR.
--- NOTE | 2017-05-13 02:36 | NUR ---
PT AWAKE; DENIES ANY DISCOMFORT. WILL CONTINUE TO MONITOR.
[2017-05-13 04:00] VITALS: BP 128/81
--- NOTE | 2017-05-13 04:45 | NUR ---
PT AWAKE; DENIES ANY DISCOMFORT. WILL CONTINUE TO MONITOR.
[2017-05-13 05:39] LABS: BASOPHILS 0 % (0-2); EOSINOPHILS 0 % (0-7); HEMATOCRIT 29.3 % (42.0-54.0); HEMOGLOBIN 9.9 g/dL (13.5-17.5); IMMATURE GRANULOCYTES 4.2 % (0-5); LYMPHOCYTES 14.6 % (15-50); MCH 30.4 pg (26.0-34.0); MCHC 33.8 g/dL (31.0-37.0); MCV 89.9 fL (80.0-100.0); MEAN PLATELET VOLUME 10.1 fL (7.4-10.4); MONOCYTES 15.6 % (2-11); NEUTROPHILS 65.6 % (40-80); PLATELET COUNT 210 10x3/uL (130-400); RBC 3.26 10x6/uL (4.20-6.10); RDW 17.5 % (11.5-14.5); WBC 3.1 10x3/uL (4.8-10.8)
--- NOTE | 2017-05-13 06:40 | NUR ---
VSS THROUGHOUT NIGHT. SR PER CM. PT DENIED ANY DISCOMFORT. NEEDS MET; WILL CONTINUE TO MONITOR.
[2017-05-13 07:24] LABS: ALBUMIN 2.2 g/dL (3.4-5.0); ALKALINE PHOSPHATASE 58 U/L (46-116); ALT (SGPT) 31 U/L (10-68); CALC OSMOLALITY 279 mosm/kg (275-300); CALCIUM 8.3 mg/dL (8.5-10.1); CARBON DIOXIDE 28.3 mmol/L (21.0-32.0); CHLORIDE - SERUM 103 mmol/L (98-107); CREATININE - SERUM 0.6 mg/dL (0.6-1.3); GLUCOSE 121 mg/dL (74-106); POTASSIUM - SERUM 4.1 mmol/L (3.5-5.1); PROTEIN - SERUM 4.9 g/dL (6.4-8.2); SODIUM 140 mmol/L (136-145); UREA NITROGEN 12 mg/dL (7-18); eGFR NON AFRICAN AMERICAN > 90 mL/min (90-120)
--- NOTE | 2017-05-13 07:30 | NUR ---
RECEIVED PT IN BED EYES CLOSED RESP UNLABORED NAD NOTED
[2017-05-13 08:00] VITALS: BP 112/68
--- NOTE | 2017-05-13 11:25 | NUR ---
FSBS 322 HUMALOG 20 UNITS GIVEN SQ LT ARM
[2017-05-13 12:00] VITALS: BP 125/81
[2017-05-13 16:00] VITALS: BP 130/79
--- NOTE | 2017-05-13 16:22 | NUR ---
FSBS 140
[2017-05-13 20:00] VITALS: BP 108/71
--- NOTE | 2017-05-13 20:15 | NUR ---
INITIAL ROUNDS COMPLETED AT 1914 HRS. PT DENIED ANY DISCOMFORT. ASSESSMENT COMPLETED AT [address] PER CM HR 103. IV TO R WRIST SL. LUNGS DIMINISHED IN BASES BILAT. WILL CONTINUE TO MONITOR. SR UP X2, CALL LIGHT WITHIN REACH.
--- NOTE | 2017-05-13 22:33 | NUR ---
PT RESTING WITH EYES CLOSED. RESP EVEN AND REGULAR. SR UP X2, CALL LIGHT WITHIN REACH.
--- NOTE | 2017-05-13 23:46 | NUR ---
PT AWAKE; DENIES ANY DISCOMFORT. WILL CONTINUE TO MONITOR.
[2017-05-14] VITALS: BP 104/66
--- NOTE | 2017-05-14 02:06 | NUR ---
PT RESTING WITH EYESCLOSED. RESP EVEN AND REGULAR. SR UP X2, CALL LIGHT WITHIN REACH.
[2017-05-14 04:00] VITALS: BP 124/73
--- NOTE | 2017-05-14 04:22 | NUR ---
PT AWAKE; DENIES ANY DISCOMFORT. WILL CONTINUE TO MONITOR.
--- NOTE | 2017-05-14 06:08 | NUR ---
VSS THROUGHOUT NIHGT. SR PER CM. PT DENIED ANY DISCOMFORT. NEEDS MET; WILL CONTINUE TO MONITOR.
[2017-05-14 07:39] VITALS: BP 127/73
[2017-05-14 11:56] VITALS: BP 126/86
[2017-05-14] MEDS ORDERED: PREDNISONE10 MG PO (13:35)
[2017-05-14] MEDS ORDERED: VIBRAMYCIN 100100 MG PO (13:36)
--- NOTE | 2017-05-14 15:49 | NUR ---
IV AND TELEMETRY DCD. DC PLANS GIVEN. UNDERSTANDING VOICED. ESCORTED TO CAR BY W/C.
--- NOTE | 2017-05-14 17:08 | NUR ---
Patient Name: ROD YEBOAH Encounter No: [id number] : 1945 Primary Insurance: MEDICARE A & B Anticipated DC Date: 05-14-2017 Planned Disposition: Home External Planned Provider: : LATE ENTRY: DCP follow-up note: CM MET WITH PT IN ROOM TO DISCUSS DISCHARGE NEEDS AND PLANNING. CM DISCUSSED AVAILABILITY OF HOME HEALTH, REHAB SERVICES AND MEDICAL EQUIPMENT. PT DENIES DISCHARGE NEEDS. CM OFFERED HOME HEALTH TO ASSIST IN POSSIBLE HELPING PREVENT READMISSION; PT REPORTS HE WILL HAVE THE [facility] NURSE AND IS UP MORE AT HOME AND IS ABLE TO WALK IN THE HOUSE WITHOUT PROBLEM. PT REPORTS IF HE FEELS LIKE HE NEEDS ANYTHING ELSE, [facility]. PT HAS A FRIEND TO TRANSPORT HIM HOME AT DISCHARGE. IMPORTANT MESSAGE FROM MEDICARE PROVIDED AND EXPLAINED. Gavin Oliver, CASE MANAGEMENT
--- NOTE | 2017-05-15 15:53 | EC ---
PATIENT:ROD YEBOAH DATE OF SERVICE: 05/07/17 SEX: M MEDICAL RECORD: [id number] DATE OF : [birth year] LOCATION:D. D.211 AGE OF PATIENT: 71 ADMISSION DATE: 05/07/17 REFERRING PHYSICIAN: INTERPRETING PHYSICIAN: SARAH GALLEGOS MD ECHOCARDIOGRAM REPORT ECHO CHARGES 4 ECHO COMPLETE CLINICAL DIAGNOSIS: SOB HX OF CAD/STENTS/LA CANCER ECHOCARDIOGRAPHIC MEASUREMENTS (adult normal given) AC root (d.<3.7cm) 4.3 cm LV Septum d (<1.2 cm> 1.7 cm Valve Excursion 1.6 cm LV Septum (systole) 2.1 cm Left Atria (s.<4.0cm> 4.4 cm LVPW d(<1.2cm) 1.4 cm RV (d.<2.3cm) 3.1 cm LVPW (sytole) 1.9 cm LV diastole(<5.6CM) 5.6 cm MV E-F(>70mm/sec) cm LV systole 4.3 cm LVOT Diameter 1.1 cm MV exc.(>10mm) 1.6 cm Est.ejection fraction (50-75%) % Pericardial Effusion N DOPPLER: LVIT cm/sec A 78.0 cm/sec E 35.0 cm/sec LA cm/sec RVSP 30 mmHg LVOT 86 cm/sec AOP1/2T m/s Asc. Ao 181 cm/sec RVOT 78 cm/sec RA cm/sec PA 140 cm/sec AV Gradient Peak 13.07mmHg AV Mean 6.51 mmHg AV Area 2.0 cm MV Gradient Peak 3.88 mmHg MV Mean 1.42 mmHg MV Area cm COMMENTS: Manager Manufacturing: Chidi CULLEN Hand Profiler: Gene Gallegos TAPE# PACS DATE OF SERVICE: 05/08/2017 PROCEDURE: Transthoracic echocardiogram. FINDINGS: 1. Left ventricle is shown to have mild concentric left ventricular hypertrophy. Inflow characteristics consistent with diastolic dysfunction. The patient has an ejection fraction of 50% to 55%. There is asynchronous wall motion due to an underlying bundle-branch block. 2. The mitral valve has mild mitral regurgitation. ECHOCARDIOGRAM REPORT [id number] ROD YEBOAH 3. The left atrium is normal size, normal function. 4. The right atrium is normal size, normal function. 5. The aortic valve is thickened without significant stenosis. There is aortic sclerosis. There is no significant gradient across the aortic valve. 6. The tricuspid valve has mild tricuspid regurgitation. The right ventricular systolic pressure is normal. 7. The pulmonic valve is normal. 8. The pericardium is normal. 9. The right ventricle is mildly enlarged with right ventricular hypertrophy with normal function. CONCLUSIONS: The patient has evidence of mild aortic sclerosis without significant stenosis. Evidence of mild hypertensive heart disease and lowish normal ejection fraction. TRANSINT:[id number] Voice Confirmation ID: [id number] DOCUMENT ID: [id number] 05/15/2017 Edited to correct date of service, dmm. SARAH GALLEGOS MD at 1553 CC: [id number] DICTATION DATE: 05/09/17 08 NURSE MIDWIFE/CLINICAL INSTRUCTOR: 05/09/17 1212 DIS IN 05/14/17 [facility] [address] [place] [address]
--- NOTE | 2017-05-24 14:06 | CN ---
PATIENT NAME:ROD RAINES MEDICAL RECORD: [id number] : [birth year] LOCATION:D. D.2115 ADMIT DATE: 05/07/17 ACCOUNT: [id number] CONSULTING PHYSICIAN: SILVIA BRITO MD REFERRING PHYSICIAN: PAOLA HEATH MD DATE OF CONSULTATION: 05/08/2017 Pulmonary Consultation CONSULT REQUESTING PHYSICIAN: Paola Heath MD REASON FOR CONSULTATION: Acute exacerbation of COPD. HISTORY OF PRESENT ILLNESS: Mr. Raines is a 71-year-old gentleman who has a history of squamous cell carcinoma on chemotherapy. The last chemo was given last week. He was also hospitalized on 04/12/17 just prior to . According to the patient last night, he had been getting worsening shortness of breath. He also has fever. His checked, had temperature of 102. The patient was brought into the ER and admitted with pneumonia and acute exacerbation of COPD. He has cough with very little sputum production. Denies any chest pain. REVIEW OF SYSTEMS: Mainly in the history of present illness. PAST MEDICAL HISTORY: 1. Squamous cell carcinoma of the lung. 2. Chronic obstructive pulmonary disease. 3. Gastroesophageal reflux disease. 4. Hypertension. 5. Coronary artery disease. 6. History of recurrent pneumonia over the last few months. PAST SURGICAL HISTORY: 1. Left knee replacement. 2. Cardiac catheterization and stent placement. ALLERGIES: There are no known drug allergies. MEDICATIONS: On [employer], was reviewed. PERSONAL AND SOCIAL HISTORY: The patient is an ex-smoker. He is a nondrinker. FAMILY HISTORY: Noncontributory. PHYSICAL EXAMINATION: GENERAL: Now, the patient is lying comfortably in bed. He is not in acute distress. VITAL SIGNS: The blood pressure is 101/65, pulse is 89, respirations 18, temperature 97.7, SPO2 is 97% on room air. HEENT: Conjunctivae pink, sclerae nonicteric. NECK: Supple, no JVD. CHEST: The chest excursion is minimal, both bilateral crackle and wheeze on forceful expiration. HEART: Rhythm regular, normal sound, no murmur. ABDOMEN: Abdomen is soft. Bowel sounds present. No hepatosplenomegaly. CONSULT REPORT [id number] ROD RAINES RECTAL: Deferred. EXTREMITIES: No cyanosis, no clubbing, no pedal edema. SKIN: The skin is warm, normal turgor. CENTRAL NERVOUS SYSTEM: The patient is awake and alert. There are no obvious cranial nerve abnormalities. The gait was not tested. IMAGING: Chest radiograph, there are bilateral infiltrate, left more than the right. LABORATORY DATA: CBC: WBC 3.3, hemoglobin 11.3, hematocrit 32.7, and platelet count 190. Chemistry: Sodium 132, potassium is 4, BUN is 11, creatinine 0.7, glucose 212. IMPRESSION: 1. Acute hypoxic respiratory failure. 2. Acute exacerbation of chronic obstructive pulmonary disease. 3. Bilateral pneumonia, left more than the right, possible hospital-acquired pneumonia with the patient's recent hospitalization. 4. Leukopenia. 5. CA lung, squamous cell carcinoma, on chemotherapy. 6. Fever secondary to pneumonia. 7. Gastroesophageal reflux disease. RECOMMENDATION: 1. Start him on vancomycin and cefepime. 2. Start albuterol/ipratropium nebulizer. Start Brovana and budesonide nebulizer. 3. Supplemental oxygen. 4. Check sputum culture, check CT scan of the chest with contrast. 5. Follow labs and chest radiograph. Dr. Heath, thank you for involving me in the care of Mr. Raines. TRANSINT:[id number] Voice Confirmation ID: [id number] DOCUMENT ID: [id number] SILVIA BRITO MD at 1406 CC: PAOLA HEATH MD [id number] DICTATION DATE: 05/08/17 1420 CASE FILLER: 05/08/17 1544 DIS IN 05/14/17 [id number] [place] [address]
== END 2017-05-14 15:54 | disposition home or self-care (01) | DRG 193 ==
LOC: D.ER 21:45 → D.M2 23:51 → D.MS 23:51 → D.CLR 05-11 11:23 → D.M2 05-11 13:14
PROVIDERS: Family Medicine; Internal Medicine Cardiovascular Disease; ADMIT Family Medicine
PROC: B2151ZZ Fluoroscopy of Left Heart using Low Osmolar Contrast (ICD-10-PCS; 2017-05-11)
PROC: 4A023N7 Measurement of Cardiac Sampling and Pressure, Left Heart, Percutaneous Approach (ICD-10-PCS; 2017-05-11)
PROC: B2111ZZ Fluoroscopy of Multiple Coronary Arteries using Low Osmolar Contrast (ICD-10-PCS; principal; 2017-05-11 08:00)
DX: J18.9 Pneumonia, unspecified organism (principal); J96.01 Acute respiratory failure with hypoxia; J44.0 Chronic obstructive pulmonary disease with (acute) lower respiratory infection; J44.1 Chronic obstructive pulmonary disease with (acute) exacerbation; C34.90 Malignant neoplasm of unspecified part of unspecified bronchus or lung; B37.0 Candidal stomatitis; K21.9 Gastro-esophageal reflux disease without esophagitis; I10 Essential (primary) hypertension; D72.819 Decreased white blood cell count, unspecified; D64.9 Anemia, unspecified; I25.119 Atherosclerotic heart disease of native coronary artery with unspecified angina pectoris; I34.0 Nonrheumatic mitral (valve) insufficiency; E86.0 Dehydration; I95.1 Orthostatic hypotension

== ENCOUNTER 2017-05-16 01:28 | Emergency (ER) | payer MEDICARE, OTHER ==
[2017-05-08 16:22] VITALS: BMI 23.7
[~2017-05-16 01:28] MED LIST changes: +VIBRAMYCIN 100100 MG PO
== END 2017-05-16 02:22 | disposition home or self-care (01) ==
LOC: D.ER 01:28
DX: S01.21XA Laceration without foreign body of nose, initial encounter (principal); W01.0XXA Fall on same level from slipping, tripping and stumbling without subsequent striking against object, initial encounter; Y93.89 Activity, other specified; Y92.012 Bathroom of single-family (private) house as the place of occurrence of the external cause; E11.9 Type 2 diabetes mellitus without complications; I10 Essential (primary) hypertension; Z85.118 Personal history of other malignant neoplasm of bronchus and lung

== ENCOUNTER 2017-05-22 07:54 | Inpatient (IN) | payer MEDICARE, OTHER ==
[~2017-05-22] VITALS: Ht 185.4 cm; Wt 86.1 kg
--- NOTE | ~2017-05-22 | CN ---
PATIENT NAME:ROD RAINES MEDICAL RECORD: [id number] : [birth year] LOCATION:D.MS [id number] ADMIT DATE: 05/22/17 ACCOUNT: [id number] CONSULTING PHYSICIAN: SILVIA BRITO MD REFERRING PHYSICIAN: LUIGI WHEATLEY MD DATE OF CONSULTATION: 05/22/2017 CONSULT REQUESTING PHYSICIAN: Luigi Wheatley MD REASON FOR CONSULTATION: Pneumonia, acute exacerbation of chronic obstructive pulmonary disease. HISTORY OF PRESENT ILLNESS: Mr. Raines is a 71-year-old gentleman who has a history of COPD and squamous cell carcinoma of the lung. He is on chemotherapy. The patient was just recently hospitalized for pneumonia, got better, went home. Since this morning, the patient has fever and he is feeling weak. He has shortness of breath with mild exertion. The patient came back, brought into the ER, and found out on the chest radiograph, he has worsening infiltrate on the right side, right upper lobe, and right lower lobe. He is also having some fever. REVIEW OF SYSTEMS: Mainly in the history of present illness. PAST MEDICAL HISTORY: 1. COPD. 2. Squamous cell carcinoma of the lung. 3. Gastroesophageal reflux disease. 4. Coronary artery disease. 5. Hypertension. 6. History of recurrent pneumonia over the last few months. PAST SURGICAL HISTORY: 1. Knee replacement. 2. Cardiac catheterization and stent placement. ALLERGIES: There are no known drug allergies. MEDICATIONS: On [employer] was reviewed. PERSONAL AND SOCIAL HISTORY: The patient is an ex-smoker. He is a nondrinker. FAMILY HISTORY: Noncontributory. PHYSICAL EXAMINATION: GENERAL: Now, the patient is lying comfortably in bed. He is not in acute distress. VITAL SIGNS: The blood pressure is 94/40, pulse is 117, respirations 24, temperature is 98.8, SpO2 is 93% on 4 liter nasal cannula. HEENT: Conjunctiva is pale. Sclerae nonicteric. NECK: Supple, no JVD. CHEST: Excursion is minimal on both sides. There is a crackle on the right side. No wheezing. HEART: Rhythm regular, normal sound, no murmur. ABDOMEN: Soft. Bowel sounds present. No hepatosplenomegaly. RECTAL: Deferred. CONSULT REPORT [id number] ROD RAINES EXTREMITIES: No cyanosis, no clubbing, no pedal edema. SKIN: Warm, normal turgor. He has bruises on his face. CENTRAL NERVOUS SYSTEM: The patient is awake and alert. There are no obvious cranial nerve abnormalities. OTHER LABORATORY DATA: CBC: WBC 7.9, hemoglobin 12.1, hematocrit 35.7, platelet count 210. Chemistry: Sodium 137, potassium is 4, BUN is 10, creatinine 0.8, glucose 153. ABG: The pH is 7.47, pCO2 is 36.1, pO2 of 72, bicarbonate 26.6. IMPRESSION: 1. Acute exacerbation of chronic obstructive pulmonary disease. 2. Hyaor-wl-hjapmcg hypoxic respiratory failure. 3. Pneumonia, right upper lobe and right lower lobe, most likely consistent with hospital-acquired pneumonia with recent hospitalization. 4. Dyspnea on exertion. 5. Non-small cell carcinoma of the lung. 6. Gastroesophageal reflux disease. RECOMMENDATION: Start him on vancomycin, cefepime, and Levaquin IV, methylprednisolone IV, albuterol/ipratropium nebulizer, Brovana and budesonide nebulizer. Supplemental oxygen as required. Follow up labs and chest radiograph. Dr. Wheatley, thank you for involving me in the care of Mr. Raines. TRANSINT:[id number] Voice Confirmation ID: [id number] DOCUMENT ID: [id number] SILVIA BRITO MD at 1406 CC: [id number] DICTATION DATE: 05/22/17 1639 GEM EXPERT: 05/22/17 1821 ADM IN [id number] [place] [address]
[2017-05-22 08:38] LABS: BASOPHILS 0.3 % (0-2); EOSINOPHILS 0.5 % (0-7); HEMATOCRIT 35.7 % (42.0-54.0); HEMOGLOBIN 12.1 g/dL (13.5-17.5); IMMATURE GRANULOCYTES 1.3 % (0-5); LYMPHOCYTES 9.8 % (15-50); MCH 30.6 pg (26.0-34.0); MCHC 33.9 g/dL (31.0-37.0); MCV 90.4 fL (80.0-100.0); MEAN PLATELET VOLUME 10.3 fL (7.4-10.4); MONOCYTES 9.3 % (2-11); NEUTROPHILS 78.8 % (40-80); PLATELET COUNT 210 10x3/uL (130-400); RBC 3.95 10x6/uL (4.20-6.10); RDW 17.2 % (11.5-14.5); WBC 7.9 10x3/uL (4.8-10.8)
[2017-05-22 08:54] LABS: ALBUMIN 2.5 g/dL (3.4-5.0); ALKALINE PHOSPHATASE 83 U/L (46-116); ALT (SGPT) 24 U/L (10-68); CALC OSMOLALITY 275 mosm/kg (275-300); CALCIUM 8.8 mg/dL (8.5-10.1); CARBON DIOXIDE 29.6 mmol/L (21.0-32.0); CHLORIDE - SERUM 99 mmol/L (98-107); CREATININE - SERUM 0.8 mg/dL (0.6-1.3); GLUCOSE 153 mg/dL (74-106); PROTEIN - SERUM 6.4 g/dL (6.4-8.2); SODIUM 137 mmol/L (136-145); UREA NITROGEN 10 mg/dL (7-18); eGFR NON AFRICAN AMERICAN > 90 mL/min (90-120)
[2017-05-22 08:56] LABS: APPEARANCE HAZY (CLEAR); BACTERIA FEW /hpf (NONE SEEN); BILIRUBIN NEGATIVE (NEGATIVE); COLOR YELLOW (YELLOW); EPITHELIAL CELLS OCC /hpf (0-5); GLUCOSE 250 mg/dL (NEGATIVE); KETONE NEGATIVE (NEGATIVE); MUCUS >1+ /lpf (NONE SEEN); NITRITE NEGATIVE (NEGATIVE); PROTEIN NEGATIVE (NEGATIVE); RED CELLS - URINE OCC /hpf (0-5); SPECIFIC GRAVITY 1.025 (1.005-1.020); UROBILINOGEN NORMAL (NORMAL); WHITE CELLS - URINE 0-5 /hpf (0-5)
[2017-05-22 09:02] LABS: CREATINE KINASE 48 UL (21-232); PRO BNP 157 pg/mL (0-125); TROPONIN-I < 0.017 ng/mL (0.000-0.060)
[2017-05-22 10:41] VITALS: BP 94/40; BMI 23.8
[2017-05-22 16:35] VITALS: BP 133/76
[2017-05-23] VITALS: BP 83/56
[2017-05-23 04:00] VITALS: BP 112/78
[2017-05-23 05:54] LABS: BASOPHILS 0.2 % (0-2); EOSINOPHILS 0 % (0-7); HEMATOCRIT 30.8 % (42.0-54.0); HEMOGLOBIN 10.5 g/dL (13.5-17.5); IMMATURE GRANULOCYTES 0.9 % (0-5); LYMPHOCYTES 7.9 % (15-50); MCH 30.6 pg (26.0-34.0); MCHC 34.1 g/dL (31.0-37.0); MCV 89.8 fL (80.0-100.0); MEAN PLATELET VOLUME 10.5 fL (7.4-10.4); MONOCYTES 2.1 % (2-11); NEUTROPHILS 88.9 % (40-80); PLATELET COUNT 194 10x3/uL (130-400); RBC 3.43 10x6/uL (4.20-6.10); RDW 17.1 % (11.5-14.5)
[2017-05-23 06:00] LABS: WBC 4.3 10x3/uL (4.8-10.8)
[2017-05-23 06:12] LABS: IMMUNOGLOBULIN E 15 IU/mL (0-100)
[2017-05-23 06:16] LABS: ALBUMIN 2.1 g/dL (3.4-5.0); ALKALINE PHOSPHATASE 94 U/L (46-116); ALT (SGPT) 25 U/L (10-68); CALC OSMOLALITY 280 mosm/kg (275-300); CALCIUM 8.6 mg/dL (8.5-10.1); CHLORIDE - SERUM 100 mmol/L (98-107); CREATININE - SERUM 0.7 mg/dL (0.6-1.3); POTASSIUM - SERUM 4.4 mmol/L (3.5-5.1); PROTEIN - SERUM 5.2 g/dL (6.4-8.2); SODIUM 138 mmol/L (136-145); UREA NITROGEN 10 mg/dL (7-18); eGFR NON AFRICAN AMERICAN > 90 mL/min (90-120)
[2017-05-23 06:17] LABS: GLUCOSE 208 mg/dL (74-106)
[2017-05-23 09:16] VITALS: BP 118/73
[2017-05-23 11:13] LABS: IMMUNOGLOBULIN G 526 mg/dL (700-1600); IMMUNOGLOBULIN M 98 mg/dL (15-143)
[2017-05-23 11:47] VITALS: BP 112/73
[2017-05-23 12:58] VITALS: BMI 23.7
[2017-05-23 16:15] VITALS: BP 114/72
[2017-05-24 04:00] VITALS: BP 111/72
[2017-05-24 06:17] LABS: BASOPHILS 0 % (0-2); EOSINOPHILS 0 % (0-7); HEMATOCRIT 31.2 % (42.0-54.0); HEMOGLOBIN 10.5 g/dL (13.5-17.5); IMMATURE GRANULOCYTES 0.2 % (0-5); LYMPHOCYTES 2.7 % (15-50); MCH 30.1 pg (26.0-34.0); MCHC 33.7 g/dL (31.0-37.0); MCV 89.4 fL (80.0-100.0); MEAN PLATELET VOLUME 10.5 fL (7.4-10.4); NEUTROPHILS 93.1 % (40-80); PLATELET COUNT 215 10x3/uL (130-400); RBC 3.49 10x6/uL (4.20-6.10); RDW 17.2 % (11.5-14.5); WBC 9.3 10x3/uL (4.8-10.8)
[2017-05-24 06:45] LABS: ALBUMIN 2.1 g/dL (3.4-5.0); ALKALINE PHOSPHATASE 79 U/L (46-116); ALT (SGPT) 25 U/L (10-68); BILIRUBIN - TOTAL 0.46 mg/dL (0.2-1.3); CALC OSMOLALITY 284 mosm/kg (275-300); CALCIUM 8.7 mg/dL (8.5-10.1); CARBON DIOXIDE 26.6 mmol/L (21.0-32.0); CHLORIDE - SERUM 104 mmol/L (98-107); CREATININE - SERUM 0.7 mg/dL (0.6-1.3); GLUCOSE 248 mg/dL (74-106); PROTEIN - SERUM 5.7 g/dL (6.4-8.2); SODIUM 139 mmol/L (136-145); UREA NITROGEN 10 mg/dL (7-18); eGFR NON AFRICAN AMERICAN > 90 mL/min (90-120)
[2017-05-24 06:46] LABS: POTASSIUM - SERUM 3.7 mmol/L (3.5-5.1)
[2017-05-24 07:58] VITALS: BP 125/77
[2017-05-24 12:02] VITALS: BP 112/67
[2017-05-24 12:14] LABS: IMMUNOGLOBULIN D <0.12 mg/dL (<14.11)
[2017-05-24 16:14] VITALS: BP 110/64
[2017-05-25] VITALS: BP 117/70
[2017-05-25 04:00] VITALS: BP 106/64
[2017-05-25 07:07] LABS: BASOPHILS 0 % (0-2); EOSINOPHILS 0 % (0-7); HEMATOCRIT 29.3 % (42.0-54.0); HEMOGLOBIN 9.8 g/dL (13.5-17.5); IMMATURE GRANULOCYTES 0.3 % (0-5); LYMPHOCYTES 3.7 % (15-50); MCHC 33.4 g/dL (31.0-37.0); MCV 89.6 fL (80.0-100.0); MEAN PLATELET VOLUME 10.4 fL (7.4-10.4); MONOCYTES 6.2 % (2-11); NEUTROPHILS 89.8 % (40-80); PLATELET COUNT 210 10x3/uL (130-400); RBC 3.27 10x6/uL (4.20-6.10); RDW 17.3 % (11.5-14.5)
[2017-05-25 07:15] LABS: ALKALINE PHOSPHATASE 71 U/L (46-116); ALT (SGPT) 25 U/L (10-68); BILIRUBIN - TOTAL 0.32 mg/dL (0.2-1.3); CALC OSMOLALITY 284 mosm/kg (275-300); CALCIUM 8.5 mg/dL (8.5-10.1); CARBON DIOXIDE 29.1 mmol/L (21.0-32.0); CHLORIDE - SERUM 104 mmol/L (98-107); CREATININE - SERUM 0.6 mg/dL (0.6-1.3); GLUCOSE 238 mg/dL (74-106); POTASSIUM - SERUM 3.9 mmol/L (3.5-5.1); PROTEIN - SERUM 5.3 g/dL (6.4-8.2); SODIUM 139 mmol/L (136-145); UREA NITROGEN 10 mg/dL (7-18); eGFR NON AFRICAN AMERICAN > 90 mL/min (90-120)
[2017-05-25 08:21] VITALS: BP 117/76
[2017-05-25 11:50] VITALS: BP 119/78
[2017-05-25 16:09] VITALS: BP 124/82
[2017-05-25 21:23] VITALS: BP 128/75
[2017-05-26 01:06] VITALS: BP 133/81
[2017-05-26 04:46] VITALS: BP 175/103
[2017-05-26 07:33] LABS: BASOPHILS 0 % (0-2); EOSINOPHILS 0 % (0-7); HEMOGLOBIN 10.5 g/dL (13.5-17.5); IMMATURE GRANULOCYTES 0.6 % (0-5); LYMPHOCYTES 3.8 % (15-50); MCHC 33.9 g/dL (31.0-37.0); MCV 88.6 fL (80.0-100.0); MEAN PLATELET VOLUME 10.4 fL (7.4-10.4); MONOCYTES 2.9 % (2-11); NEUTROPHILS 92.7 % (40-80); PLATELET COUNT 189 10x3/uL (130-400); RDW 17.3 % (11.5-14.5); WBC 7.9 10x3/uL (4.8-10.8)
[2017-05-26 08:05] LABS: ALBUMIN 2.2 g/dL (3.4-5.0); ALKALINE PHOSPHATASE 84 U/L (46-116); ALT (SGPT) 28 U/L (10-68); BILIRUBIN - TOTAL 0.43 mg/dL (0.2-1.3); CALC OSMOLALITY 281 mosm/kg (275-300); CALCIUM 8.3 mg/dL (8.5-10.1); CARBON DIOXIDE 29.8 mmol/L (21.0-32.0); CHLORIDE - SERUM 101 mmol/L (98-107); CREATININE - SERUM 0.6 mg/dL (0.6-1.3); GLUCOSE 216 mg/dL (74-106); POTASSIUM - SERUM 3.6 mmol/L (3.5-5.1); PROTEIN - SERUM 5.7 g/dL (6.4-8.2); SODIUM 138 mmol/L (136-145); UREA NITROGEN 11 mg/dL (7-18); eGFR NON AFRICAN AMERICAN > 90 mL/min (90-120)
[2017-05-26 08:45] VITALS: BP 139/90
[2017-05-26 12:45] VITALS: BP 109/82
[2017-05-26 17:29] VITALS: BP 135/94
[2017-05-27] VITALS: BP 116/80
[2017-05-27 04:00] VITALS: BP 110/77
[2017-05-27 05:10] LABS: BASOPHILS 0 % (0-2); EOSINOPHILS 0 % (0-7); HEMATOCRIT 32.1 % (42.0-54.0); HEMOGLOBIN 10.9 g/dL (13.5-17.5); IMMATURE GRANULOCYTES 0.7 % (0-5); LYMPHOCYTES 3.2 % (15-50); MCH 30.2 pg (26.0-34.0); MCV 88.9 fL (80.0-100.0); MONOCYTES 3.8 % (2-11); NEUTROPHILS 92.3 % (40-80); PLATELET COUNT 206 10x3/uL (130-400); RBC 3.61 10x6/uL (4.20-6.10); RDW 17.2 % (11.5-14.5); WBC 8.1 10x3/uL (4.8-10.8)
[2017-05-27 05:32] LABS: ALBUMIN 2.2 g/dL (3.4-5.0); ALKALINE PHOSPHATASE 80 U/L (46-116); ALT (SGPT) 25 U/L (10-68); BILIRUBIN - TOTAL 0.49 mg/dL (0.2-1.3); CALC OSMOLALITY 282 mosm/kg (275-300); CALCIUM 8.3 mg/dL (8.5-10.1); CARBON DIOXIDE 30.7 mmol/L (21.0-32.0); CHLORIDE - SERUM 100 mmol/L (98-107); CREATININE - SERUM 0.6 mg/dL (0.6-1.3); GLUCOSE 242 mg/dL (74-106); POTASSIUM - SERUM 3.7 mmol/L (3.5-5.1); PROTEIN - SERUM 5.6 g/dL (6.4-8.2); SODIUM 137 mmol/L (136-145); UREA NITROGEN 15 mg/dL (7-18); VANCOMYCIN - TROUGH 8.2 ug/mL (10.0-20.0); eGFR NON AFRICAN AMERICAN > 90 mL/min (90-120)
[2017-05-27 10:47] VITALS: BP 136/91
[2017-05-27 17:00] VITALS: BP 132/86
[2017-05-27 22:16] VITALS: BP 140/77
[2017-05-28 05:19] VITALS: BP 134/82
[2017-05-28 07:33] LABS: BASOPHILS 0.1 % (0-2); EOSINOPHILS 0 % (0-7); HEMOGLOBIN 10.5 g/dL (13.5-17.5); IMMATURE GRANULOCYTES 0.6 % (0-5); LYMPHOCYTES 3.6 % (15-50); MCH 30.3 pg (26.0-34.0); MCHC 33.9 g/dL (31.0-37.0); MCV 89.6 fL (80.0-100.0); MEAN PLATELET VOLUME 10.1 fL (7.4-10.4); NEUTROPHILS 92.7 % (40-80); PLATELET COUNT 192 10x3/uL (130-400); RBC 3.46 10x6/uL (4.20-6.10); RDW 17.3 % (11.5-14.5); WBC 7.8 10x3/uL (4.8-10.8)
[2017-05-28 08:02] LABS: CALCIUM 8.2 mg/dL (8.5-10.1); CARBON DIOXIDE 29.3 mmol/L (21.0-32.0); CHLORIDE - SERUM 102 mmol/L (98-107); CREATININE - SERUM 0.5 mg/dL (0.6-1.3); GLUCOSE 278 mg/dL (74-106); PRO BNP 1125 pg/mL (0-125); SODIUM 138 mmol/L (136-145); eGFR NON AFRICAN AMERICAN > 90 mL/min (90-120)
[2017-05-28 08:05] LABS: CALC OSMOLALITY 288 mosm/kg (275-300); POTASSIUM - SERUM 4.3 mmol/L (3.5-5.1); UREA NITROGEN 21 mg/dL (7-18)
[2017-05-28 08:34] VITALS: BP 135/83
[2017-05-28 12:09] VITALS: Ht 185.4 cm; Wt 86.1 kg
[2017-05-28 12:33] VITALS: BP 153/94
[2017-05-28 16:51] VITALS: BP 122/81
[2017-05-28 22:17] VITALS: BP 131/82
[2017-05-29 02:28] VITALS: BP 135/80
[2017-05-29 08:26] VITALS: BP 141/80
[2017-05-29 12:27] VITALS: BP 140/84
[2017-05-29 16:51] VITALS: BP 188/101
[2017-05-29 20:51] VITALS: BP 165/85
[2017-05-30 05:42] LABS: BASOPHILS 0 % (0-2); EOSINOPHILS 0 % (0-7); HEMATOCRIT 32.8 % (42.0-54.0); HEMOGLOBIN 11.4 g/dL (13.5-17.5); IMMATURE GRANULOCYTES 1.4 % (0-5); LYMPHOCYTES 3.1 % (15-50); MCH 30.5 pg (26.0-34.0); MCHC 34.8 g/dL (31.0-37.0); MCV 87.7 fL (80.0-100.0); MEAN PLATELET VOLUME 10.7 fL (7.4-10.4); MONOCYTES 4.7 % (2-11); NEUTROPHILS 90.8 % (40-80); PLATELET COUNT 175 10x3/uL (130-400); RBC 3.74 10x6/uL (4.20-6.10); WBC 7.2 10x3/uL (4.8-10.8)
[2017-05-30 05:53] VITALS: BP 131/87
[2017-05-30 06:01] LABS: CALC OSMOLALITY 284 mosm/kg (275-300); CHLORIDE - SERUM 100 mmol/L (98-107); CREATININE - SERUM 0.5 mg/dL (0.6-1.3); GLUCOSE 288 mg/dL (74-106); POTASSIUM - SERUM 4.1 mmol/L (3.5-5.1); SODIUM 136 mmol/L (136-145); UREA NITROGEN 19 mg/dL (7-18); eGFR NON AFRICAN AMERICAN > 90 mL/min (90-120)
[2017-05-30 08:44] VITALS: BP 149/93
[2017-05-30 11:53] VITALS: BP 152/95
[2017-05-30 16:17] VITALS: BP 134/84
[2017-05-30 20:00] VITALS: BP 123/81
[2017-05-31] VITALS: BP 121/73
[2017-05-31 06:04] LABS: BASOPHILS 0.1 % (0-2); EOSINOPHILS 0 % (0-7); HEMATOCRIT 32.9 % (42.0-54.0); HEMOGLOBIN 11.5 g/dL (13.5-17.5); IMMATURE GRANULOCYTES 1.7 % (0-5); LYMPHOCYTES 2.8 % (15-50); MCH 30.7 pg (26.0-34.0); MEAN PLATELET VOLUME 10.9 fL (7.4-10.4); MONOCYTES 4.9 % (2-11); NEUTROPHILS 90.5 % (40-80); PLATELET COUNT 173 10x3/uL (130-400); RBC 3.74 10x6/uL (4.20-6.10); RDW 17.3 % (11.5-14.5); WBC 7.8 10x3/uL (4.8-10.8)
[2017-05-31 06:30] LABS: CALC OSMOLALITY 291 mosm/kg (275-300); CALCIUM 8.2 mg/dL (8.5-10.1); CARBON DIOXIDE 30.6 mmol/L (21.0-32.0); CHLORIDE - SERUM 102 mmol/L (98-107); CREATININE - SERUM 0.6 mg/dL (0.6-1.3); GLUCOSE 288 mg/dL (74-106); POTASSIUM - SERUM 4.4 mmol/L (3.5-5.1); SODIUM 139 mmol/L (136-145); UREA NITROGEN 21 mg/dL (7-18); eGFR NON AFRICAN AMERICAN > 90 mL/min (90-120)
[2017-05-31 08:33] VITALS: BP 133/90
[2017-05-31 12:57] VITALS: BP 134/86
[2017-05-31 17:04] VITALS: BP 143/92
[2017-05-31 20:00] VITALS: BP 129/87
[2017-06-01 04:00] VITALS: BP 139/81
[2017-06-01 06:14] LABS: BASOPHILS 0 % (0-2); EOSINOPHILS 0 % (0-7); HEMATOCRIT 32.1 % (42.0-54.0); IMMATURE GRANULOCYTES 1.1 % (0-5); MCH 30.3 pg (26.0-34.0); MCHC 34.3 g/dL (31.0-37.0); MCV 88.4 fL (80.0-100.0); MEAN PLATELET VOLUME 11.2 fL (7.4-10.4); MONOCYTES 3.8 % (2-11); NEUTROPHILS 93.1 % (40-80); PLATELET COUNT 149 10x3/uL (130-400); RBC 3.63 10x6/uL (4.20-6.10); RDW 17.3 % (11.5-14.5); WBC 8.8 10x3/uL (4.8-10.8)
[2017-06-01 06:29] LABS: CALC OSMOLALITY 284 mosm/kg (275-300); CALCIUM 8.2 mg/dL (8.5-10.1); CARBON DIOXIDE 31.1 mmol/L (21.0-32.0); CHLORIDE - SERUM 102 mmol/L (98-107); GLUCOSE 283 mg/dL (74-106); POTASSIUM - SERUM 4.5 mmol/L (3.5-5.1); SODIUM 136 mmol/L (136-145); UREA NITROGEN 22 mg/dL (7-18)
[2017-06-01 06:30] LABS: CREATININE - SERUM 0.4 mg/dL (0.6-1.3); eGFR NON AFRICAN AMERICAN > 90 mL/min (90-120)
[2017-06-01 08:16] VITALS: BP 156/97
[2017-06-01 12:57] VITALS: BP 140/80
[2017-06-01 16:14] VITALS: BP 138/83
[2017-06-01 20:00] VITALS: BP 167/92
[2017-06-02] VITALS: BP 137/74
[2017-06-02 04:00] VITALS: BP 104/59
[2017-06-02 06:44] LABS: BASOPHILS 0 % (0-2); EOSINOPHILS 0 % (0-7); HEMATOCRIT 33.3 % (42.0-54.0); HEMOGLOBIN 11.4 g/dL (13.5-17.5); IMMATURE GRANULOCYTES 0.9 % (0-5); LYMPHOCYTES 3.2 % (15-50); MCH 30.4 pg (26.0-34.0); MCHC 34.2 g/dL (31.0-37.0); MCV 88.8 fL (80.0-100.0); MEAN PLATELET VOLUME 11.1 fL (7.4-10.4); NEUTROPHILS 93.9 % (40-80); PLATELET COUNT 151 10x3/uL (130-400); RBC 3.75 10x6/uL (4.20-6.10); RDW 17.5 % (11.5-14.5)
[2017-06-02 06:56] LABS: WBC 11.2 10x3/uL (4.8-10.8)
[2017-06-02 07:05] LABS: CALC OSMOLALITY 279 mosm/kg (275-300); CALCIUM 8.1 mg/dL (8.5-10.1); CARBON DIOXIDE 30.3 mmol/L (21.0-32.0); CHLORIDE - SERUM 100 mmol/L (98-107); CREATININE - SERUM 0.3 mg/dL (0.6-1.3); POTASSIUM - SERUM 4.8 mmol/L (3.5-5.1); SODIUM 135 mmol/L (136-145); UREA NITROGEN 21 mg/dL (7-18); eGFR NON AFRICAN AMERICAN > 90 mL/min (90-120)
[2017-06-02 07:12] LABS: GLUCOSE 233 mg/dL (74-106)
[2017-06-02 09:03] VITALS: BP 144/81
[2017-06-02 20:00] VITALS: BP 154/86
[2017-06-03] VITALS: BP 134/71
[2017-06-03 04:00] VITALS: BP 166/97
[2017-06-03 05:21] LABS: BASOPHILS 0 % (0-2); EOSINOPHILS 0 % (0-7); HEMATOCRIT 33.5 % (42.0-54.0); HEMOGLOBIN 11.5 g/dL (13.5-17.5); IMMATURE GRANULOCYTES 0.6 % (0-5); LYMPHOCYTES 3.1 % (15-50); MCH 30.5 pg (26.0-34.0); MCHC 34.3 g/dL (31.0-37.0); MCV 88.9 fL (80.0-100.0); MEAN PLATELET VOLUME 11.3 fL (7.4-10.4); MONOCYTES 1.7 % (2-11); NEUTROPHILS 94.6 % (40-80); PLATELET COUNT 127 10x3/uL (130-400); RBC 3.77 10x6/uL (4.20-6.10); RDW 17.7 % (11.5-14.5)
[2017-06-03 05:43] LABS: CALCIUM 8.3 mg/dL (8.5-10.1); CARBON DIOXIDE 30.6 mmol/L (21.0-32.0); CHLORIDE - SERUM 101 mmol/L (98-107); POTASSIUM - SERUM 4.5 mmol/L (3.5-5.1); SODIUM 137 mmol/L (136-145); UREA NITROGEN 22 mg/dL (7-18)
[2017-06-03 05:44] LABS: CALC OSMOLALITY 290 mosm/kg (275-300); CREATININE - SERUM 0.5 mg/dL (0.6-1.3); GLUCOSE 355 mg/dL (74-106); eGFR NON AFRICAN AMERICAN > 90 mL/min (90-120)
[2017-06-03 08:47] VITALS: BP 146/81
[2017-06-03 18:42] VITALS: BP 126/68
[2017-06-03 20:00] VITALS: BP 174/92
[2017-06-04] VITALS (13 sets, daily range): BP systolic 96–162; BP diastolic 61–103
[2017-06-04 11:41] LABS: ALBUMIN 2.5 g/dL (3.4-5.0); ALKALINE PHOSPHATASE 63 U/L (46-116); ALT (SGPT) 28 U/L (10-68); BILIRUBIN - TOTAL 0.63 mg/dL (0.2-1.3); CALC OSMOLALITY 290 mosm/kg (275-300); CALCIUM 8.4 mg/dL (8.5-10.1); CARBON DIOXIDE 28.9 mmol/L (21.0-32.0); CHLORIDE - SERUM 100 mmol/L (98-107); CREATININE - SERUM 0.4 mg/dL (0.6-1.3); GLUCOSE 361 mg/dL (74-106); PROTEIN - SERUM 5.2 g/dL (6.4-8.2); SODIUM 136 mmol/L (136-145); UREA NITROGEN 23 mg/dL (7-18); eGFR NON AFRICAN AMERICAN > 90 mL/min (90-120)
[2017-06-04 11:42] LABS: POTASSIUM - SERUM 5.6 mmol/L (3.5-5.1)
[2017-06-04 11:47] LABS: BASOPHILS 0.1 % (0-2); EOSINOPHILS 0 % (0-7); HEMATOCRIT 35.9 % (42.0-54.0); HEMOGLOBIN 12.2 g/dL (13.5-17.5); IMMATURE GRANULOCYTES 0.8 % (0-5); LYMPHOCYTES 3.4 % (15-50); MCH 30.2 pg (26.0-34.0); MCV 88.9 fL (80.0-100.0); NEUTROPHILS 94.7 % (40-80); PLATELET COUNT 106 10x3/uL (130-400); RBC 4.04 10x6/uL (4.20-6.10); WBC 10.8 10x3/uL (4.8-10.8)
[2017-06-04 19:19] LABS: EOS BF 6 %; MACROPHAGES BF 17 %; MESOTHELIALS BF 3 %; NEUT - BF 57 %
[2017-06-05] VITALS (25 sets, daily range): BP systolic 71–115; BP diastolic 39–73
[2017-06-05 05:26] LABS: BASOPHILS 0 % (0-2); EOSINOPHILS 0 % (0-7); HEMATOCRIT 30.5 % (42.0-54.0); HEMOGLOBIN 10.9 g/dL (13.5-17.5); IMMATURE GRANULOCYTES 0.8 % (0-5); LYMPHOCYTES 1.5 % (15-50); MCH 32.4 pg (26.0-34.0); MCHC 35.7 g/dL (31.0-37.0); MCV 90.8 fL (80.0-100.0); MEAN PLATELET VOLUME 11.9 fL (7.4-10.4); MONOCYTES 2.3 % (2-11); NEUTROPHILS 95.4 % (40-80); PLATELET COUNT 120 10x3/uL (130-400); RBC 3.36 10x6/uL (4.20-6.10)
[2017-06-05 05:34] LABS: WBC 15.8 10x3/uL (4.8-10.8)
[2017-06-05 06:25] LABS: GLUCOSE 246 mg/dL (74-106); UREA NITROGEN 26 mg/dL (7-18)
[2017-06-05 06:26] LABS: ALBUMIN 2.2 g/dL (3.4-5.0); ALKALINE PHOSPHATASE 47 U/L (46-116); ALT (SGPT) 22 U/L (10-68); BILIRUBIN - TOTAL 0.28 mg/dL (0.2-1.3); CALC OSMOLALITY 275 mosm/kg (275-300); CALCIUM 6.9 mg/dL (8.5-10.1); CARBON DIOXIDE 26.6 mmol/L (21.0-32.0); CHLORIDE - SERUM 99 mmol/L (98-107); CREATININE - SERUM 0.4 mg/dL (0.6-1.3); PROTEIN - SERUM 4.3 g/dL (6.4-8.2); SODIUM 131 mmol/L (136-145); eGFR NON AFRICAN AMERICAN > 90 mL/min (90-120)
[2017-06-06] VITALS (16 sets, daily range): BP systolic 92–147; BP diastolic 6–96
[2017-06-06 04:06] LABS: BASOPHILS 0 % (0-2); EOSINOPHILS 0 % (0-7); HEMATOCRIT 31.7 % (42.0-54.0); HEMOGLOBIN 10.3 g/dL (13.5-17.5); IMMATURE GRANULOCYTES 0.6 % (0-5); LYMPHOCYTES 4.5 % (15-50); MCH 30.1 pg (26.0-34.0); MCHC 32.5 g/dL (31.0-37.0); MCV 92.7 fL (80.0-100.0); MEAN PLATELET VOLUME 12.4 fL (7.4-10.4); MONOCYTES 2.8 % (2-11); NEUTROPHILS 92.1 % (40-80); PLATELET COUNT 99 10x3/uL (130-400); RBC 3.42 10x6/uL (4.20-6.10); RDW 18.5 % (11.5-14.5); WBC 12.6 10x3/uL (4.8-10.8)
[2017-06-06 04:28] LABS: ALBUMIN 1.8 g/dL (3.4-5.0); ALKALINE PHOSPHATASE 44 U/L (46-116); ALT (SGPT) 20 U/L (10-68); BILIRUBIN - TOTAL 0.24 mg/dL (0.2-1.3); CALC OSMOLALITY 288 mosm/kg (275-300); CALCIUM 7.9 mg/dL (8.5-10.1); CARBON DIOXIDE 32.7 mmol/L (21.0-32.0); CHLORIDE - SERUM 106 mmol/L (98-107); GLUCOSE 231 mg/dL (74-106); MAGNESIUM - SERUM 2.1 mg/dL (1.8-2.4); POTASSIUM - SERUM 5.5 mmol/L (3.5-5.1); PRO BNP 1588 pg/mL (0-125); PROTEIN - SERUM 4.5 g/dL (6.4-8.2); SODIUM 139 mmol/L (136-145); UREA NITROGEN 25 mg/dL (7-18)
[2017-06-06 04:31] LABS: CREATININE - SERUM 0.6 mg/dL (0.6-1.3); eGFR NON AFRICAN AMERICAN > 90 mL/min (90-120)
[2017-06-06 13:16] LABS: FUNGUS STAIN Final report (())
[2017-06-06 16:14] LABS: ACID FAST SMEAR Negative (()); AFB SPECIMEN PROCESSING Concentration (())
[2017-06-11 15:19] LABS: FUNGUS CULTURE RESULT 1 Candida albicans (()); FUNGUS CULTURE RESULT 2 Penicillium species (())
[2017-07-03 07:25] LABS: FUNGUS MYCOLOGY CULTURE Final report (())
== END 2017-06-06 17:56 | disposition hospice, inpatient (51) | DRG 166 ==
LOC: D.ER 07:54 → D.MS 09:36 → D.ICU 09:36
PROVIDERS: Emergency Medicine; Family Medicine; Internal Medicine Hematology & Oncology; Internal Medicine Nephrology; Internal Medicine Pulmonary Disease
PROC: 02HV33Z Insertion of Infusion Device into Superior Vena Cava, Percutaneous Approach (ICD-10-PCS; principal; 2017-06-04)
PROC: 0B9J8ZX Drainage of Left Lower Lung Lobe, Via Natural or Artificial Opening Endoscopic, Diagnostic (ICD-10-PCS; 2017-06-04)
PROC: B548ZZA Ultrasonography of Superior Vena Cava, Guidance (ICD-10-PCS; 2017-06-04)
PROC: 0BH17EZ Insertion of Endotracheal Airway into Trachea, Via Natural or Artificial Opening (ICD-10-PCS; 2017-06-04)
PROC: 5A1945Z Respiratory Ventilation, 24-96 Consecutive Hours (ICD-10-PCS; 2017-06-04)
DX: J15.6 Pneumonia due to other Gram-negative bacteria (principal); J96.21 Acute and chronic respiratory failure with hypoxia; E43 Unspecified severe protein-calorie malnutrition; R53.2 Functional quadriplegia; C34.90 Malignant neoplasm of unspecified part of unspecified bronchus or lung; J44.0 Chronic obstructive pulmonary disease with (acute) lower respiratory infection; J44.1 Chronic obstructive pulmonary disease with (acute) exacerbation; J84.9 Interstitial pulmonary disease, unspecified; B37.0 Candidal stomatitis; J15.212 Pneumonia due to Methicillin resistant Staphylococcus aureus; E86.0 Dehydration; I48.91 Unspecified atrial fibrillation; I25.10 Atherosclerotic heart disease of native coronary artery without angina pectoris; J30.9 Allergic rhinitis, unspecified; J33.8 Other polyp of sinus; B59 Pneumocystosis; F41.9 Anxiety disorder, unspecified; K21.9 Gastro-esophageal reflux disease without esophagitis; E11.65 Type 2 diabetes mellitus with hyperglycemia; E78.5 Hyperlipidemia, unspecified; D64.9 Anemia, unspecified; E88.09 Other disorders of plasma-protein metabolism, not elsewhere classified; I10 Essential (primary) hypertension; Z87.891 Personal history of nicotine dependence; Z68.23 Body mass index [BMI] 23.0-23.9, adult

== ENCOUNTER 2017-06-06 17:37 | Inpatient (IN) | payer OTHER ==
[~2017-06-06] VITALS: Ht 185.4 cm; Wt 105.9 kg
[2017-06-06 19:23] VITALS: BP 116/84; Ht 185.4 cm; Wt 105.9 kg
== END 2017-06-07 03:07 | DRG 951 ==
LOC: D.ICU 17:37 → D.M3 20:30
DX: Z51.5 Encounter for palliative care (principal)